=== PATIENT | male | born 1940 | race African-American/Black ===

== ENCOUNTER 2016-10-30 22:02 | Inpatient (IN) | payer MEDICARE, OTHER ==
[~2016-10-30] VITALS: Ht 228.6 cm; Wt 49.0 kg
[~2016-10-30 22:02] MED LIST: ADVAIR 500-501 EACH INH; AMLODIPINE BESY10 MG ORAL; CLARINEX5 MG ORAL; COMBIVENT RESPIM4 GM IH; DIOVAN320 MG ORAL; MUCINEX D ER 61 EACH PO; NASONEX17 GM NASAL; NEXIUM40 M2 ORAL; PREDNISONE10 M2 PO; PROMETHAZINE-C118 M1 ORAL; SPIRIVA18 MCG INH; THEOPHYLLINE A100 MG ORAL; ZITHROMAX500 MG ORAL
[2016-10-30 22:41] VITALS: BP 133/90
[2016-10-31 00:35] VITALS: BP 127/91
[2016-10-31 01:32] LABS: BASOPHILS % (AUTO) 1.6 % (0.0-2.0); EOSINOPHILS % (AUTO) 0.7 % (0.0-3.0); LYMPHOCYTES % (AUTO) 37.1 % (20.0-45.0); MEAN CORPUSCULAR HGB CONC 30.4 G/DL (32.0-36.0); MEAN CORPUSCULAR VOLUME 105 FL (80-99); MEAN PLATELET VOLUME 9.3 FL (6.5-10.1); MONOCYTES % (AUTO) 9.6 % (1.0-10.0); PLATELET COUNT 221 K/UL (150-450); RED BLOOD COUNT 4.41 M/UL (4.70-6.10); RED CELL DISTRIBUTION WIDTH 16.3 % (11.6-14.8); WHITE BLOOD COUNT 4.6 K/UL (4.8-10.8)
[2016-10-31 01:37] VITALS: BP 153/91
[2016-10-31 02:13] LABS: TROPONIN I < 0.30 ng/mL (<=0.30)
[2016-10-31 02:17] LABS: ALANINE AMINOTRANSFERASE 15 U/L (3-41); ALBUMIN/GLOBULIN RATIO 0.7 (1.0-2.7); ANION GAP 13 (5-15); ASPARTATE AMINO TRANSFERASE 16 U/L (5-40); CALCIUM 9.7 mg/dL (8.6-10.2); CARBON DIOXIDE 27 mEQ/L (20-30); CHLORIDE 101 mEQ/L (98-107); HEMOLYSIS 29; POTASSIUM 4.3 mEQ/L (3.4-4.9); SODIUM 141 mEQ/L (135-145); TOTAL PROTEIN 8.5 g/dL (6.6-8.7)
--- NOTE | 2016-10-31 02:27 | Emergency Room Report ---
History of Present Illness General Chief Complaint: Chest Pain Source: Patient Present Illness HPI Patient present with complaints of chest pain ongoing for the past 2 days Midsternal Denies any change with exertion or position Patient also has a history of COPD had a recent hospitalization for that However this time denies any significant shortness of breath patient is on home O2 and presents with his home oxygen pain is a 3/ 10 heaviness at times sharp pain midsternal without much other radiation denies any vomiting or diarrhea denies any pleurisy Allergies: Coded Allergies: No Known Allergies (Verified , 06/04/09) Patient History Past Medical History: see triage record Pertinent Family History: none Reviewed Nursing Documentation: PMH: Agreed, PSxH: Agreed Nursing Documentation-PMH Hx Hypertension: Yes Hx COPD: Yes Hx Cancer: Yes Hx Gastrointestinal Problems: Yes Hx Neurological Problems: Yes - back pain, sight problem Review of Systems All Other Systems: negative except mentioned in HPI Physical Exam Vital Signs Date Time Temp Pulse Resp B/P Pulse Ox O2 Delivery O2 Flow Rate FiO2 10/30/16 22:17 98.8 92 21 133/90 97 Room Air 2.0 Sp02 EP Interpretation: reviewed, normal General Appearance: no apparent distress Head: normocephalic, atraumatic Eyes: bilateral eye EOMI, bilateral eye PERRL ENT: hearing grossly normal, normal pharynx, TMs + canals normal, uvula midline Neck: full range of motion, supple, no meningismus, no bony tend Respiratory: no rhonchi, no respiratory distress, no retraction, no accessory muscle use, crackles, wheezing Cardiovascular #1: normal peripheral pulses, regular rate, rhythm, no edema, no gallop, no JVD, no murmur Gastrointestinal: normal bowel sounds, non tender, soft, no mass, no organomegaly, non-distended, no guarding, no hernia, no pulsatile mass, no rebound Genitourinary: no CVA tenderness Musculoskeletal: normal inspection Neurologic: oriented x3, responsive, 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 nml as tested, motor strength/ tone normal, sensory intact Psychiatric: mood/affect normal Skin: normal color, no rash, warm/dry, palpation normal Lymphatic: normal inspection, no adenopathy Medical Decision Making Diagnostic Impression: Primary Impression: ACS (acute coronary syndrome) ER Course Patient is a fairly complex patient with multiple differential to consideration including but not limited to cardiac cardiopulmonary and vascular emergencies Patient's x-ray appears to be stable Patient was given aspirin at this time remained chest pain-free and nitroglycerin was held EKG shows some nonspecific findings otherwise enzymes were negative and patient admitted for further inpatient care Labs Test 10/31/16 00:20 White Blood Count 4.6 K/UL (4.8-10.8) Red Blood Count 4.41 M/UL (4.70-6.10) Hemoglobin 14.1 G/DL (14.2-18.0) Hematocrit 46.5 % (42.0-52.0) Mean Corpuscular Volume 105 FL (80-99) Mean Corpuscular Hemoglobin 32.0 PG (27.0-31.0) Mean Corpuscular Hemoglobin Concent 30.4 G/DL (32.0-36.0) Red Cell Distribution Width 16.3 % (11.6-14.8) Platelet Count 221 K/UL (150-450) Mean Platelet Volume 9.3 FL (6.5-10.1) Neutrophils (%) (Auto) 51.0 % (45.0-75.0) Lymphocytes (%) (Auto) 37.1 % (20.0-45.0) Monocytes (%) (Auto) 9.6 % (1.0-10.0) Eosinophils (%) (Auto) 0.7 % (0.0-3.0) Basophils (%) (Auto) 1.6 % (0.0-2.0) Sodium Level 141 mEQ/L (135-145) Potassium Level 4.3 mEQ/L (3.4-4.9) Chloride Level 101 mEQ/L (98-107) Carbon Dioxide Level 27 mEQ/L (20-30) Anion Gap 13 (5-15) Blood Urea Nitrogen 21 mg/dL (7-23) Creatinine 1.0 mg/dL (0.7-1.2) Estimat Glomerular Filtration Rate mL/min (>60) Glucose Level 107 mg/dL (74-106) Calcium Level 9.7 mg/dL (8.6-10.2) Total Bilirubin 0.3 mg/dL (0.0-1.2) Aspartate Amino Transf (AST/SGOT) 16 U/L (5-40) Alanine Aminotransferase (ALT/SGPT) 15 U/L (3-41) Alkaline Phosphatase 81 U/L (40-129) Total Creatine Kinase 158 U/L (38-174) Troponin I < 0.30 ng/mL (<=0.30) Total Protein 8.5 g/dL (6.6-8.7) Albumin 3.7 g/dL (3.5-5.2) Globulin 4.8 g/dL Albumin/Globulin Ratio 0.7 (1.0-2.7) EKG Diagnostic Results Rate: normal Rhythm: NSR ST Segments: other - Nonspecific ST and T-wave changes Rhythm Strip Diag. Results EP Interpretation: yes Rate: 66 Rhythm: NSR, no PVC's, no ectopy Chest X-Ray Diagnostic Results EP Interpretation: Yes Findings: no consolidation, no effusion, no pneumothorax Number of Views: 1 Last Vital Signs Date Time Temp Pulse Resp B/P Pulse Ox O2 Delivery O2 Flow Rate FiO2 10/31/16 02:08 98.8 68 16 153/91 100 Room Air 2.0 Status: improved Disposition: ADMITTED INPATIENT Condition: Serious Referrals: LEYLA ARRIAZA (PCP) MAYO PARIKH D.O. Oct 31, 2016 02:27
[2016-10-31 02:30] LABS: CKMB 1.7 ng/mL (< 6.7)
[2016-10-31 08:05] VITALS: BP 146/89
[2016-10-31] MEDS ORDERED: Promethazine/Codeine 5ml UD ORAL PRN (11:00)
[2016-10-31 11:28] VITALS: BP 137/87
--- NOTE | 2016-10-31 11:35 | Diagnostic Imaging Report ---
Indication: Chest Pain Comparison: 09/05/16 A single view chest radiograph was obtained. Findings: A No definite infiltrate or pulmonary vascular congestion identified. The heart is enlarged. The aorta is mildly enlarged consistent with atherosclerotic vascular disease. The bones are osteopenic. Impression: No acute disease
--- NOTE | 2016-10-31 11:59 | Nephrology Progress Note ---
Assessment/Plan Problem List: (1) ACS (acute coronary syndrome) (2) Hypertension Plan H&P dictated # [id number] Subjective Constitutional: Denies: chills, diaphoresis, fever, malaise, no symptoms, other , weakness HEENT: Denies: blurred vision, double vision, ear discharge, ear pain, eye pain , mouth pain, mouth swelling, no symptoms, nose congestion, nose pain, other, tearing, throat pain, throat swelling Genitourinary: Denies: burning, discharge, flank pain, frequency, hematuria, incontinence, no symptoms, other, pain, urgency Neurologic/Psychiatric: Denies: anxiety, depressed, emotional problems, headache, no symptoms, numbness, other, paresthesia, pre-existing deficit, seizure, tingling, tremors, weakness Objective Objective Last 24 Hour Vital Signs Date Time Temp Pulse Resp B/P Pulse Ox O2 Delivery O2 Flow Rate FiO2 10/31/16 11:28 97.9 71 20 137/87 97 Nasal Cannula 2.0 10/31/16 08:05 96.8 68 20 146/89 94 Nasal Cannula 2.0 10/31/16 04:33 67 10/31/16 02:08 98.8 68 16 153/91 100 Room Air 2.0 10/31/16 01:37 98.8 68 16 153/91 100 Room Air 2.0 10/31/16 00:35 98.8 74 16 127/91 100 Room Air 2.0 10/30/16 22:41 98.8 90 21 133/90 97 Room Air 2.0 10/30/16 22:41 92 21 Room Air 2.0 10/30/16 22:17 98.8 92 21 133/90 97 Room Air 2.0 Intake and Output 10/30/16 10/31/16 18:59 06:59 Output Total 300 ml Balance -300 ml Output Urine Total 300 ml # Voids 2 Laboratory Tests 10/31/16 00:20: White Blood Count 4.6L, Red Blood Count 4.41L, Hemoglobin 14.1L, Hematocrit 46.5 , Mean Corpuscular Volume 105H, Mean Corpuscular Hemoglobin 32.0H, Mean Corpuscular Hemoglobin Concent 30.4L, Red Cell Distribution Width 16.3H, Platelet Count 221, Mean Platelet Volume 9.3, Neutrophils (%) (Auto) 51.0, Lymphocytes (%) (Auto) 37.1, Monocytes (%) (Auto) 9.6, Eosinophils (%) (Auto) 0.7, Basophils (%) (Auto) 1.6, Sodium Level 141, Potassium Level 4.3, Chloride Level 101, Carbon Dioxide Level 27, Anion Gap 13, Blood Urea Nitrogen 21, Creatinine 1.0, Estimat Glomerular Filtration Rate , Glucose Level 107H, Calcium Level 9.7, Total Bilirubin 0.3, Aspartate Amino Transf (AST/SGOT) 16, Alanine Aminotransferase (ALT/SGPT) 15, Alkaline Phosphatase 81, Total Creatine Kinase 158, Creatine Kinase MB 1.7, Creatine Kinase MB Relative Index 1.0, Troponin I < 0.30, Pro-B-Type Natriuretic Peptide 391, Total Protein 8.5, Albumin 3.7, Globulin 4.8, Albumin/Globulin Ratio 0.7L Height (Feet): 7 Height (Inches): 6.00 Weight (Pounds): 108 EENT: PERRL/EOMI, normal ENT inspection Neck: non-tender, normal alignment Cardiovascular: no JVD Respiratory/Chest: no respiratory distress Abdomen: non tender, soft Neurologic: no motor/sensory deficits, alert, oriented x 3, responsive, normal mood/affect Karen Salomon N.P. Oct 31, 2016 11:59
[2016-10-31] MEDS: PredniSONE 20mg tab ORAL SCH ×2 (13:00→22:09)
[2016-10-31] MEDS: Theophylline ER 100mg ORAL SCH (13:00)
[2016-10-31] MEDS: Norco 5mg/325mg tab ORAL PRN ×2 (13:01→17:45)
[2016-10-31 13:28] LABS: TROPONIN I < 0.30 ng/mL (<=0.30)
[2016-10-31 13:37] LABS: CKMB < 1.5 ng/mL (< 6.7)
[2016-10-31] MEDS: Irbesartan 150mg tablet ORAL SCH (13:52)
[2016-10-31 15:49] VITALS: BP 135/92
[2016-10-31] MEDS: Flonase Nasal Inhaler 16gm NASAL SCH (16:19)
[2016-10-31] MEDS: guaiFENesin 600mg tab ORAL SCH (17:41)
[2016-10-31] MEDS: Pseudoephedrine 30mg tab ORAL SCH (17:41)
[2016-10-31 20:00] VITALS: BP 132/90
[2016-10-31] MEDS: Morphine Sulfate 2mg/ml Inj IVP PRN (22:11)
[2016-10-31] MEDS: Heparin 5000 units/ml inj SUBQ SCH (22:12)
[2016-11-01] VITALS: BP 146/88
[2016-11-01] MEDS: Norco 5mg/325mg tab ORAL PRN ×4 (02:10→22:11)
--- NOTE | 2016-11-01 03:18 | HX and Phyl Repo 2 Sig ---
DATE OF ADMISSION: 10/30/2016 HISTORY OF PRESENT ILLNESS: The patient is a 75-year-old male, who presented to the emergency department yesterday, 10/30/2016 with complaints of left-sided chest pain radiating to the left arm and back. He also complains of shortness of breath and dizziness with severe headache. He then asked his brother to bring him to the emergency room because he thought he was having a heart attack. He denies any loss of consciousness. Denies any fever. Denies chills. No nausea. No vomiting. He stated that until this incident, he has been in good health after his discharge from the hospital on 09/05/2016. PAST MEDICAL HISTORY: 1. Hypertension. 2. Depression. 3. Lumbar arthropathy. 4. Degenerative joint disease. 5. COPD. MEDICATIONS: Theophylline, amlodipine, Phenergan With Codeine, Spiriva, aspirin, Nasonex, Prednisolone, Nexium, and Clarinex. ALLERGIES: He has no known allergies. SOCIAL HISTORY: He denies any alcohol use. No illicit drug use. He is a nonsmoker. FAMILY HISTORY: Noncontributory. REVIEW OF SYSTEMS: A full 12-point review of system was reviewed with the patient and positive as stated in HPI. PHYSICAL EXAMINATION: GENERAL: The patient does not appear to be in any distress at this time. VITAL SIGNS: Blood pressure is 137/87, heart rate is 71, temperature is 97.9 degrees, O2 saturation 97% on room air, and respirations 20. HEAD AND NECK: Normocephalic and atraumatic. EOMI. NECK: Supple. Trachea is midline. LUNGS: Clear bilaterally. CARDIOVASCULAR: Regular rate and rhythm. S1 and S2. No murmur. No gallop. ABDOMEN: Soft, nontender, and nondistended. No organomegaly. EXTREMITIES: No edema, no cyanosis, and no clubbing. NEUROLOGIC: The patient is alert and oriented x3. LABORATORY DATA: WBC 4.6, hemoglobin 14.1, hematocrit 36.5, and platelet count is 221,000. Chemistry, sodium of 141, potassium 4.3, chloride 101, bicarbonate is 27, BUN 21, and creatinine 1.0. Glucose is 107. RADIOLOGIC FINDING: A chest x-ray shows no acute disease present. ASSESSMENT: 1. Chest pain. 2. Rule out myocardial infarction. 3. Hypertension. 4. Chronic obstructive pulmonary disease. 5. Degenerative joint disease. PLAN: Plan is to continue home medications. Start the patient on cardiac diet. Obtain a cardiac consultation with Dr. Holguin. Monitor labs. Consider nebulizing treatment. Obtain cardiac enzymes q.8 h. x3. Monitor the patient's response to treatment. , CBCs, and BMP. Hesham Arreaga M.D. Karen Salomon DR: SOILA JOB#: [id number] CC:
[2016-11-01 04:00] VITALS: BP 150/84
[2016-11-01 08:11] LABS: BASOPHILS % (AUTO) 1.8 % (0.0-2.0); EOSINOPHILS % (AUTO) 0.1 % (0.0-3.0); LYMPHOCYTES % (AUTO) 37.8 % (20.0-45.0); MEAN CORPUSCULAR HGB CONC 32.6 G/DL (32.0-36.0); MEAN CORPUSCULAR VOLUME 95 FL (80-99); MEAN PLATELET VOLUME 10.1 FL (6.5-10.1); NEUTROPHILS % (AUTO) 53.3 % (45.0-75.0); PLATELET COUNT 205 K/UL (150-450); RED BLOOD COUNT 4.28 M/UL (4.70-6.10); RED CELL DISTRIBUTION WIDTH 14.1 % (11.6-14.8); WHITE BLOOD COUNT 4.3 K/UL (4.8-10.8)
[2016-11-01 08:22] LABS: ANION GAP 11 (5-15); CALCIUM 9.5 mg/dL (8.6-10.2); CARBON DIOXIDE 29 mEQ/L (20-30); CHLORIDE 100 mEQ/L (98-107); CREATININE 0.8 mg/dL (0.7-1.2); HEMOLYSIS 15; POTASSIUM 4.2 mEQ/L (3.4-4.9); SODIUM 140 mEQ/L (135-145)
[2016-11-01 08:42] VITALS: BP 157/95
[2016-11-01] MEDS: Pseudoephedrine 30mg tab ORAL SCH ×3 (09:00→17:45)
[2016-11-01] MEDS: Flonase Nasal Inhaler 16gm NASAL SCH (09:18)
[2016-11-01] MEDS: Irbesartan 150mg tablet ORAL SCH (09:19)
[2016-11-01] MEDS: Theophylline ER 100mg ORAL SCH (09:19)
[2016-11-01] MEDS: PredniSONE 20mg tab ORAL SCH ×2 (09:19→17:41)
[2016-11-01] MEDS: guaiFENesin 600mg tab ORAL SCH (09:19)
[2016-11-01] MEDS: Docusate 100mg cap ORAL SCH ×2 (09:20→17:41)
[2016-11-01] MEDS: Miralax 17gm pkt ORAL SCH (09:20)
[2016-11-01] MEDS: Heparin 5000 units/ml inj SUBQ SCH ×2 (09:21→22:10)
--- NOTE | 2016-11-01 11:51 | Neurology Progress Note ---
Objective Physical Exam Last Vital Signs Date Time Temp Pulse Resp B/P Pulse Ox O2 Delivery O2 Flow Rate FiO2 11/01/16 09:19 157/95 11/01/16 09:19 56 11/01/16 09:15 18 97 Room Air 21 11/01/16 08:42 97.0 2.0 Laboratory Tests Test 10/31/16 12:33 11/01/16 07:30 Total Creatine Kinase 119 U/L (38-174) Creatine Kinase MB < 1.5 ng/mL (< 6.7) Creatine Kinase MB Relative Index 1.2 Troponin I < 0.30 ng/mL (<=0.30) White Blood Count 4.3 K/UL (4.8-10.8) L Red Blood Count 4.28 M/UL (4.70-6.10) L Hemoglobin 13.3 G/DL (14.2-18.0) L Hematocrit 40.6 % (42.0-52.0) L Mean Corpuscular Volume 95 FL (80-99) # Mean Corpuscular Hemoglobin 31.0 PG (27.0-31.0) Mean Corpuscular Hemoglobin Concent 32.6 G/DL (32.0-36.0) Red Cell Distribution Width 14.1 % (11.6-14.8) Platelet Count 205 K/UL (150-450) Mean Platelet Volume 10.1 FL (6.5-10.1) Neutrophils (%) (Auto) 53.3 % (45.0-75.0) Lymphocytes (%) (Auto) 37.8 % (20.0-45.0) Monocytes (%) (Auto) 7.0 % (1.0-10.0) Eosinophils (%) (Auto) 0.1 % (0.0-3.0) Basophils (%) (Auto) 1.8 % (0.0-2.0) Sodium Level 140 mEQ/L (135-145) Potassium Level 4.2 mEQ/L (3.4-4.9) Chloride Level 100 mEQ/L (98-107) Carbon Dioxide Level 29 mEQ/L (20-30) Anion Gap 11 (5-15) Blood Urea Nitrogen 14 mg/dL (7-23) Creatinine 0.8 mg/dL (0.7-1.2) Estimat Glomerular Filtration Rate mL/min (>60) Glucose Level 110 mg/dL (74-106) H Calcium Level 9.5 mg/dL (8.6-10.2) Impression/Recommendations Problems: (1) cephalgia,muscle contraction type (2) Chronic pain syndrome (3) generalised myalgia/arthralgia (4) H/O prostate cancer (5) Abnormal gait (6) Anxiety disorder (7) Depression Status: stable Recommendations #[id number] SARANYA MENSAH Nov 01, 2016 11:51
[2016-11-01 12:55] VITALS: BP 147/94
[2016-11-01 13:07] LABS: PSA TOTAL 3.7 ng/mL (< 4.5)
[2016-11-01 13:19] LABS: CRP QUANT < 0.3 mg/dL (< 0.5)
[2016-11-01 16:00] VITALS: BP 139/82
--- NOTE | 2016-11-01 16:17 | Cardiac Electrophysiology PN ---
Subjective Subjective [id number]. HTN, CP, COPD, ECHO and stress test Objective Last 24 Hour Vital Signs Date Time Temp Pulse Resp B/P Pulse Ox O2 Delivery O2 Flow Rate FiO2 11/01/16 12:55 97.5 69 20 147/94 99 Nasal Cannula 2.0 11/01/16 12:00 54 11/01/16 09:19 157/95 11/01/16 09:19 56 157/95 11/01/16 09:15 98 18 97 Room Air 21 11/01/16 09:10 100 20 96 Room Air 21 11/01/16 08:42 97.0 56 20 157/95 100 Nasal Cannula 2.0 11/01/16 08:00 53 11/01/16 04:00 97.5 69 18 150/84 100 Nasal Cannula 2.0 11/01/16 04:00 53 11/01/16 00:00 97.9 64 20 146/88 100 Room Air 11/01/16 00:00 54 10/31/16 20:00 64 10/31/16 20:00 97.9 72 16 132/90 99 Room Air Intake and Output 10/31/16 11/01/16 18:59 06:59 Intake Total 680 ml 620 ml Output Total 850 ml 500 ml Balance -170 ml 120 ml Intake Oral 680 ml 620 ml Output Urine Total 850 ml 500 ml # Voids 3 Laboratory Tests Test 11/01/16 07:30 11/01/16 12:25 White Blood Count 4.3 K/UL (4.8-10.8) L Red Blood Count 4.28 M/UL (4.70-6.10) L Hemoglobin 13.3 G/DL (14.2-18.0) L Hematocrit 40.6 % (42.0-52.0) L Mean Corpuscular Volume 95 FL (80-99) # Mean Corpuscular Hemoglobin 31.0 PG (27.0-31.0) Mean Corpuscular Hemoglobin Concent 32.6 G/DL (32.0-36.0) Red Cell Distribution Width 14.1 % (11.6-14.8) Platelet Count 205 K/UL (150-450) Mean Platelet Volume 10.1 FL (6.5-10.1) Neutrophils (%) (Auto) 53.3 % (45.0-75.0) Lymphocytes (%) (Auto) 37.8 % (20.0-45.0) Monocytes (%) (Auto) 7.0 % (1.0-10.0) Eosinophils (%) (Auto) 0.1 % (0.0-3.0) Basophils (%) (Auto) 1.8 % (0.0-2.0) Sodium Level 140 mEQ/L (135-145) Potassium Level 4.2 mEQ/L (3.4-4.9) Chloride Level 100 mEQ/L (98-107) Carbon Dioxide Level 29 mEQ/L (20-30) Anion Gap 11 (5-15) Blood Urea Nitrogen 14 mg/dL (7-23) Creatinine 0.8 mg/dL (0.7-1.2) Estimat Glomerular Filtration Rate mL/min (>60) Glucose Level 110 mg/dL (74-106) H Calcium Level 9.5 mg/dL (8.6-10.2) Erythrocyte Sedimentation Rate 78 MM/HR (0-20) H C-Reactive Protein, Quantitative < 0.3 mg/dL (< 0.5) Total Protein (PEP) Pending Albumin (PEP) Pending Globulin (PEP) Pending Albumin/Globulin Ratio Pending [id number] Pending Llzoy-[id number] Pending Beta Globulins Pending Beta Gamma Globulin Pending PEP Abnormal Protein Bands Pending Protein Electrophoresis Interpret Pending Prostate Specific Antigen 3.7 ng/mL (< 4.5) Rheumatoid Factor Screen Pending Anti-Nuclear Antibody Screen Pending TARA OLIVERA Nov 01, 2016 16:17
[2016-11-01 20:00] VITALS: BP 142/74
--- NOTE | 2016-11-01 20:29 | Cardiology Report ---
APPROVED REPORT EKG Measurement Heart [id number] Normal sinus rhythm Right bundle branch block T wave abnormality, consider lateral ischemia Abnormal ECG
--- NOTE | 2016-11-01 20:41 | Cardiology Report ---
APPROVED REPORT EXAM: Two-dimensional and M-mode echocardiogram with Doppler and color Doppler. INDICATION Chest Pain M-Mode DIMENSIONS Left Atrium (MM)3.5 (1.6-4.0cm) Aortic Root3.6 (2.0-3.7cm) Aortic Cusp Exc.1.9 (1.5-2.0cm) Technically difficult study due to poor acoustic windows. M-mode measurements not obtainable due to cardiac structure. Normal left ventricular chamber size, systolic function and wall motion. Left ventricular ejection fraction estimated to be 55-60%. No evidence of left ventricular hypertrophy. Anterior Echo-free space, may be due to pericardial fat or effusion. All other cardiac chamber sizes are within normal limits. Focal aortic valve sclerosis with adequate cusp excursion Thickened mitral valve leaflets with normal excursion. Mitral annulus and aortic root calcification. Pulmonic valve not well visualized. Normal tricuspid valve structure. IVC not obtainable. A color flow and spectral Doppler study was performed and revealed: No aortic regurgitation. No mitral regurgitation. Left ventricular diastolic dysfunction grade 1. No tricuspid regurgitation. Tricuspid systolic velocities suggests peak right ventricular systolic pressure of 31 mmHg
--- NOTE | 2016-11-01 21:57 | Consultation ---
DATE OF CONSULTATION: 11/01/2016 NEUROLOGICAL CONSULTATION REQUESTING PHYSICIAN: Hesham Arreaga M.D. HISTORY OF PRESENT ILLNESS: The patient is a 75-year-old man seen in neurological consultation to evaluate multiple complaints including intermittent two to three times a month severe diffuse headache accompanied by dizziness, blurriness of vision, and not responding to Tylenol or Advil. The patient complains of generalized pain, arthralgia, and myalgia. His current admission followed two days of chest pain, which continues until present time. The patient informs me that pain issue dates back to 20 years ago when he was exposed to chemicals at work and through working compensation placed on disabilities. Following current admission, vital signs were normal. He was a stable, blood pressure 133/90 and temperature 98.8 degrees. EKG revealed some nonspecific findings. Laboratory work was obtained revealing mild anemia, hemoglobin 14.1 and hematocrit 46.5. Chemistry panel unremarkable with the blood sugar 107. Normal troponins, sequential. Imaging studies included chest x-ray, which revealed no acute disease, aorta mildly enlarged consistent with atherosclerotic vascular disease and heart is enlarged. The patient indicate that symptoms including old recurrent symptomatology fluctuate periodically with exacerbation forcing him to be hospitalized. 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 MEDICATIONS: The patient's treatment prior to admission included Norvasc, albuterol, Zithromax, Phenergan, Clarinex, Nexium, Suresh-Dur, Diovan, losartan, Zoloft, [place] two to three a day, which he takes almost daily for several years. The patient indicated he is under care of pain management, hospital education coordinator for his underlying COPD and frequent exacerbations. ALLERGIES: None reported. SOCIAL HISTORY: Lives at home alone with his brother, . No alcohol. No drug abuse. Nonsmoker. FAMILY HISTORY: Noncontributory. REVIEW OF SYSTEMS: A 12-point review of symptom was obtained and this included severe headache diffuse, visual abnormalities related to his glaucoma, neck pain, pain in his upper and lower extremities, and upper mid lower back, gait instability using cane, anxiety, depression, persistent dull chest pain, but no palpitations, shortness of breath on exertion, and unaware of having strokes, TIA, or seizures. PHYSICAL EXAMINATION: GENERAL: Well-developed and well-nourished man, not in acute distress, found to be asleep, but easily arousable. VITAL SIGNS: Stable. Blood pressure 157/95, heart rate of 56 and afebrile. HEENT: Head, normocephalic. No evidence of trauma. Eyes, ears and throat are clear. NECK: Neck is supple, but tender on palpation. EXTREMITIES: There is a diffuse tenderness in joints both upper and lower extremities, upper mid lower back. Straight leg raising test is negative. There is arthritic deformities in both knees. Peripheral pulses 1+ symmetric. MENTAL STATUS: The patient is alert and oriented x3. His speech is fluent. No evidence of aphasia or apraxia. Emotionally labile, tense, anxious, concerned that he might have "something dangerous in his head". CRANIAL NERVE II: Pupils both responding to light and accommodation. Extraocular movement intact. CRANIAL NERVE V: Normal corneal responses. CRANIAL NERVE VII: Left facial droop. 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 CRANIAL NERVE VIII: Normal hearing. CRANIAL NERVES IX THROUGH XII: Tongue is midline. Symmetric palate elevation. MOTOR EXAMINATION: Motor examination revealed normal muscle tone. Strength 5/5 in all extremities. No involuntary movement. No pronation drift. Deep reflexes are 1+ bilaterally symmetric with downgoing toes on both sides. SENSORY EXAM: Normal to pinprick and light touch. Gait is slow, small steps, slight limping to the right, using cane. IMPRESSION: 1. The patient is a 75-year-old man with a chronic intermittent dull headache, muscle contraction type. 2. Abnormal gait, multifactorial contributed by generalized arthralgia and myalgia. 3. Chronic pain syndrome, opiate dependent. 4. Anxiety and depression. 5. Hypertension. 6. Chronic obstructive pulmonary disease. 7. Gouty arthritis. DISCUSSION: The patient is suffering from multiple medical issues including pain syndrome, which he attributed to exposure to chemicals at work 25 years ago. Symptoms are chronic with intermittent exacerbations. 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 Presence of persistent arthralgia and myalgia may relate to collagen vascular disease or rheumatoid arthritis, this requires further diagnostic studies to establish correct diagnosis to rule out fibromyalgia per Rheumatology. The patient encouraged to avoid use of opiates on a daily basis, the patient to continue with the Zoloft. I will add gabapentin 300 mg at bedtime to be titrated up to 300 mg t.i.d. as a maintenance following two to three months. Hold nonsteroidals (the patient on prednisone). May use Fioricet p.r.n. for breakthrough headaches. Thank you for allowing me to see this interesting patient in neurological consultation. Rc Mooney M.D. DR: NICKIE JOB#: [id number] CC:
[2016-11-02] VITALS: BP 145/87
--- NOTE | 2016-11-02 00:18 | Consultation ---
DATE OF CONSULTATION: 11/01/2016 CARDIOLOGY CONSULTATION REQUESTING PHYSICIAN: Hesham Arreaga M.D. REASON FOR CONSULTATION: Management of hypertension and shortness of breath. HISTORY OF PRESENT ILLNESS: The patient is a 75-year-old gentleman with history of hypertension, depression, lumbar radiculopathy, COPD and degenerative joint disease, presented to the emergency room complaining of shortness of breath and dizziness. The patient also said he had some left-sided chest pain with radiation to left arm and neck. The patient asked his brother to bring him to the emergency room, as he felt that he may be having a heart attack. The patient was admitted and a Cardiology consultation was obtained for further evaluation and management. PAST MEDICAL HISTORY: 1. Hypertension. 2. COPD. 3. Arthritis. 4. . 5. Depression. MEDICATIONS: Amlodipine, theophylline, Nasonex, Spiriva, aspirin, and Nexium. ALLERGIES: He has no known drug allergies. SOCIAL HISTORY: He does not smoke or drink alcohol or use any illicit drugs. FAMILY HISTORY: Noncontributory. REVIEW OF SYSTEMS: Review of systems was thoroughly performed and was negative other what was mentioned in history of present illness. PHYSICAL EXAMINATION: VITAL SIGNS: Blood pressure is 157/95, pulse is 56, respirations 18, and he is afebrile. HEAD AND NECK: No JVD. LUNGS: Clear. CARDIOVASCULAR: Regular S1 and S2 with no gallop or murmur. ABDOMEN: Soft. EXTREMITIES: No pitting edema. NEUROLOGIC: He is alert and oriented x3. LABORATORY AND DIAGNOSTIC DATA: Sodium 141, potassium 4.3, BUN of 11, creatinine of 0.8 and glucose of 110. Troponins negative x2. CK and CK-MBs are negative. ASSESSMENT AND PLAN: 1. Atypical chest pain. The patient already ruled out for myocardial infarction. We will get an echocardiogram to evaluate for ejection fraction and wall motion abnormality. Chest x-ray, which showed no acute disease. If all negative, we will proceed with nuclear stress for further evaluation and management. 2. Hypertension. The patient is on 300 mg daily and Norvasc 10 mg daily. I will add p.r.n. clonidine to his medical regimen and would avoid beta-sidra in view of his chronic obstructive pulmonary disease. 3. Chronic pain syndrome with generalized myalgia and arthralgia. 4. Depression and anxiety. 5. History of prostate cancer. Thank you very much, Dr. Arreaga, for allowing me to participate in the care of this patient. Please do not hesitate to contact me if there are any questions regarding my evaluation. Aron Holguin M.D. DR: DENA JOB#: [id number] CC:
[2016-11-02] MEDS: Morphine Sulfate 2mg/ml Inj IVP PRN (02:26)
[2016-11-02 04:00] VITALS: BP 158/90
[2016-11-02 08:00] VITALS: BP 152/92
[2016-11-02 08:31] LABS: TROPONIN I < 0.30 ng/mL (<=0.30)
--- NOTE | 2016-11-02 08:31 | Nephrology Progress Note ---
Assessment/Plan Problem List: (1) ACS (acute coronary syndrome) (2) Chronic pain syndrome (3) H/O prostate cancer (4) generalised myalgia/arthralgia (5) Anemia of chronic disease (6) Hypertension Plan cardio following. stress test scheduled for am. Subjective Subjective late entry for 11/01. no more chest pain . Objective Objective Last 24 Hour Vital Signs Date Time Temp Pulse Resp B/P Pulse Ox O2 Delivery O2 Flow Rate FiO2 11/02/16 07:00 99 Nasal Cannula 2.0 28 11/02/16 07:00 Nasal Cannula 2.0 28 11/02/16 04:00 47 11/02/16 04:00 97.5 66 20 158/90 100 Nasal Cannula 2.0 11/02/16 00:00 65 11/02/16 00:00 97.6 74 20 145/87 100 Nasal Cannula 2.0 11/01/16 20:16 Nasal Cannula 2.0 28 11/01/16 20:15 98 Nasal Cannula 2.0 28 11/01/16 20:00 64 11/01/16 20:00 97.6 76 21 142/74 98 Nasal Cannula 2.0 11/01/16 16:35 Nasal Cannula 2.0 28 11/01/16 16:35 99 Nasal Cannula 2.0 28 11/01/16 16:00 97.4 72 22 139/82 100 Nasal Cannula 2.0 11/01/16 16:00 78 11/01/16 12:55 97.5 69 20 147/94 99 Nasal Cannula 2.0 11/01/16 12:00 54 11/01/16 09:19 157/95 11/01/16 09:19 56 157/95 11/01/16 09:15 98 18 97 Room Air 21 11/01/16 09:10 100 20 96 Room Air 21 11/01/16 08:42 97.0 56 20 157/95 100 Nasal Cannula 2.0 Intake and Output 11/01/16 11/02/16 19:00 07:00 Intake Total 480 ml 300 ml Output Total 900 ml 1500 ml Balance -420 ml -1200 ml Intake Oral 480 ml 300 ml Output Urine Total 900 ml 1500 ml Laboratory Tests 11/01/16 12:25: Erythrocyte Sedimentation Rate 78H, C-Reactive Protein, Quantitative < 0.3, Total Protein (PEP) [Pending], Albumin (PEP) [Pending], Globulin (PEP) [Pending] , Albumin/Globulin Ratio [Pending], [id number]-2-[id number] [Pending], Alpha-2- Globulins [Pending], Beta Globulins [Pending], Beta Gamma Globulin [Pending], PEP Abnormal Protein Bands [Pending], Protein Electrophoresis Interpret [Pending ], Prostate Specific Antigen 3.7, Rheumatoid Factor Screen [Pending], Anti- Nuclear Antibody Screen [Pending] 11/02/16 07:30: Sodium Level [Pending], Potassium Level [Pending], Chloride Level [Pending], Carbon Dioxide Level [Pending], Blood Urea Nitrogen [Pending], Creatinine [ Pending], Estimat Glomerular Filtration Rate [Pending], Glucose Level [Pending] , Calcium Level [Pending], Troponin I [Pending], Pro-B-Type Natriuretic Peptide [Pending] Height (Feet): 7 Height (Inches): 6.00 Weight (Pounds): 108 General Appearance: no apparent distress Cardiovascular: normal rate, regular rhythm Respiratory/Chest: lungs clear Abdomen: non tender, soft LEYLA ARRIAZA Nov 02, 2016 08:30
[2016-11-02 08:53] LABS: ANION GAP 11 (5-15); CALCIUM 9.1 mg/dL (8.6-10.2); CARBON DIOXIDE 30 mEQ/L (20-30); CHLORIDE 103 mEQ/L (98-107); CREATININE 0.8 mg/dL (0.7-1.2); HEMOLYSIS 2; POTASSIUM 4.6 mEQ/L (3.4-4.9); SODIUM 144 mEQ/L (135-145)
--- NOTE | 2016-11-02 09:20 | Cardiac Electrophysiology PN ---
Assessment/Plan Assessment/Plan 1. Atypical chest pain. Ruled out for myocardial infarction. Echocardiogram EF 55-60%. Nuclear stress today pending. 2. Hypertension. The patient is on Avapro 300 mg daily and Norvasc 10 mg daily and p.r.n. clonidine. Avoid beta-sidra in view of his chronic obstructive pulmonary disease. 3. Chronic pain syndrome with generalized myalgia and arthralgia. 4. Depression and anxiety. 5. History of prostate cancer. NOVA RN Subjective Subjective No chest pain or SOB. No arrhythmias overnight. Objective Last 24 Hour Vital Signs Date Time Temp Pulse Resp B/P Pulse Ox O2 Delivery O2 Flow Rate FiO2 11/02/16 09:03 60 18 99 Room Air 21 11/02/16 09:01 57 18 99 Room Air 21 11/02/16 07:00 99 Nasal Cannula 2.0 28 11/02/16 07:00 Nasal Cannula 2.0 28 11/02/16 04:00 47 11/02/16 04:00 97.5 66 20 158/90 100 Nasal Cannula 2.0 11/02/16 00:00 65 11/02/16 00:00 97.6 74 20 145/87 100 Nasal Cannula 2.0 11/01/16 20:16 Nasal Cannula 2.0 28 11/01/16 20:15 98 Nasal Cannula 2.0 28 11/01/16 20:00 64 11/01/16 20:00 97.6 76 21 142/74 98 Nasal Cannula 2.0 11/01/16 16:35 Nasal Cannula 2.0 28 11/01/16 16:35 99 Nasal Cannula 2.0 28 11/01/16 16:00 97.4 72 22 139/82 100 Nasal Cannula 2.0 11/01/16 16:00 78 11/01/16 12:55 97.5 69 20 147/94 99 Nasal Cannula 2.0 11/01/16 12:00 54 11/01/16 09:19 157/95 11/01/16 09:19 56 157/95 Intake and Output 11/01/16 11/02/16 19:00 07:00 Intake Total 480 ml 300 ml Output Total 900 ml 1500 ml Balance -420 ml -1200 ml Intake Oral 480 ml 300 ml Output Urine Total 900 ml 1500 ml Laboratory Tests Test 11/01/16 12:25 11/02/16 07:30 Erythrocyte Sedimentation Rate 78 MM/HR (0-20) H C-Reactive Protein, Quantitative < 0.3 mg/dL (< 0.5) Total Protein (PEP) Pending Albumin (PEP) Pending Globulin (PEP) Pending Albumin/Globulin Ratio Pending [id number]-4-[id number] Pending Zugkx-[id number] Pending Beta Globulins Pending Beta Gamma Globulin Pending PEP Abnormal Protein Bands Pending Protein Electrophoresis Interpret Pending Prostate Specific Antigen 3.7 ng/mL (< 4.5) Rheumatoid Factor Screen Pending Anti-Nuclear Antibody Screen Pending Sodium Level 144 mEQ/L (135-145) Potassium Level 4.6 mEQ/L (3.4-4.9) Chloride Level 103 mEQ/L (98-107) Carbon Dioxide Level 30 mEQ/L (20-30) Anion Gap 11 (5-15) Blood Urea Nitrogen 17 mg/dL (7-23) Creatinine 0.8 mg/dL (0.7-1.2) Estimat Glomerular Filtration Rate mL/min (>60) Glucose Level 93 mg/dL (74-106) Calcium Level 9.1 mg/dL (8.6-10.2) Troponin I < 0.30 ng/mL (<=0.30) Pro-B-Type Natriuretic Peptide 158 pg/mL (0-450) Objective HEAD AND NECK: No JVD. LUNGS: Clear. CARDIOVASCULAR: Regular S1 and S2 with no gallop or murmur. ABDOMEN: Soft. EXTREMITIES: No pitting edema. TARA OLIVERA Nov 02, 2016 09:20
[2016-11-02 09:45] LABS: RHEUMATOID FACTOR SCREEN <10.0 IU/mL (0.0-13.9)
[2016-11-02] MEDS: Pseudoephedrine 30mg tab ORAL SCH ×2 (09:55→17:51)
[2016-11-02] MEDS: Irbesartan 150mg tablet ORAL SCH (09:55)
[2016-11-02] MEDS: Miralax 17gm pkt ORAL SCH (09:55)
[2016-11-02] MEDS: guaiFENesin 600mg tab ORAL SCH (09:56)
[2016-11-02] MEDS: PredniSONE 20mg tab ORAL SCH ×2 (09:56→17:46)
[2016-11-02] MEDS: Docusate 100mg cap ORAL SCH ×2 (09:56→17:48)
[2016-11-02] MEDS: Heparin 5000 units/ml inj SUBQ SCH ×2 (09:58→22:28)
[2016-11-02] MEDS: Flonase Nasal Inhaler 16gm NASAL SCH (10:00)
[2016-11-02 10:18] LABS: A/G RATIO 0.8 (0.7-1.7); ABNORMAL PROTEIN BAND 1 2.6 g/dL (Not Observed); ALBUMIN 3.2 g/dL (2.9-4.4); ALPHA-1 GLOBULIN 0.2 g/dL (0.0-0.4); ALPHA-2 GLOBULIN 0.6 g/dL (0.4-1.0); BETA GLOBULIN 3.2 g/dL (0.7-1.3); GAMMA GLOBULIN 0.1 g/dL (0.4-1.8); GLOBULIN, TOTAL 4.1 g/dL (2.2-3.9); TOTAL PROTEIN 7.3 g/dL (6.0-8.5)
[2016-11-02] MEDS: Theophylline ER 100mg ORAL SCH (10:27)
[2016-11-02 12:00] VITALS: BP 139/81
[2016-11-02] MEDS: Norco 5mg/325mg tab ORAL PRN ×3 (12:30→22:27)
[2016-11-02 16:00] VITALS: BP 124/76
--- NOTE | 2016-11-02 17:45 | Nephrology Progress Note ---
Assessment/Plan Problem List: (1) ACS (acute coronary syndrome) (2) Hypertension (3) Numbness and tingling of both legs (4) H/O prostate cancer (5) Degenerative joint disease Plan Cardio f/u S/P stress test - will follow up with cardio recs Monitor vitals Monitor counts Neurology f/u AM labs Subjective Constitutional: Denies: chills, diaphoresis, fever, malaise, no symptoms, other , weakness HEENT: Denies: blurred vision, double vision, ear discharge, ear pain, eye pain , mouth pain, mouth swelling, no symptoms, nose congestion, nose pain, other, tearing, throat pain, throat swelling Genitourinary: Denies: burning, discharge, flank pain, frequency, hematuria, incontinence, no symptoms, other, pain, urgency Neurologic/Psychiatric: Reports: numbness - bilateral foot numbess Objective Objective Last 24 Hour Vital Signs Date Time Temp Pulse Resp B/P Pulse Ox O2 Delivery O2 Flow Rate FiO2 11/02/16 16:00 97.6 63 21 124/76 98 Nasal Cannula 3.0 11/02/16 12:00 97.9 59 18 139/81 100 Nasal Cannula 2.0 11/02/16 12:00 57 11/02/16 09:56 60 158/90 11/02/16 09:55 158/90 11/02/16 09:03 60 18 99 Room Air 21 11/02/16 09:01 57 18 99 Room Air 21 11/02/16 08:00 97.7 59 18 152/92 97 Nasal Cannula 2.0 11/02/16 08:00 61 11/02/16 07:00 99 Nasal Cannula 2.0 28 11/02/16 07:00 Nasal Cannula 2.0 28 11/02/16 04:00 47 11/02/16 04:00 97.5 66 20 158/90 100 Nasal Cannula 2.0 11/02/16 00:00 65 11/02/16 00:00 97.6 74 20 145/87 100 Nasal Cannula 2.0 11/01/16 20:16 Nasal Cannula 2.0 28 11/01/16 20:15 98 Nasal Cannula 2.0 28 11/01/16 20:00 64 11/01/16 20:00 97.6 76 21 142/74 98 Nasal Cannula 2.0 Intake and Output 11/01/16 11/02/16 19:00 07:00 Intake Total 480 ml 300 ml Output Total 900 ml 1500 ml Balance -420 ml -1200 ml Intake Oral 480 ml 300 ml Output Urine Total 900 ml 1500 ml Laboratory Tests 11/02/16 07:30: Sodium Level 144, Potassium Level 4.6, Chloride Level 103, Carbon Dioxide Level 30, Anion Gap 11, Blood Urea Nitrogen 17, Creatinine 0.8, Estimat Glomerular Filtration Rate , Glucose Level 93, Calcium Level 9.1, Troponin I < 0.30, Pro-B- Type Natriuretic Peptide 158 Height (Feet): 7 Height (Inches): 6.00 Weight (Pounds): 108 General Appearance: no apparent distress, alert EENT: normal ENT inspection, TMs normal Neck: normal alignment, supple Cardiovascular: normal rate, regular rhythm, no JVD Respiratory/Chest: normal breath sounds, no respiratory distress Abdomen: soft, no organomegaly Extremities: normal range of motion, non-tender, normal inspection, no calf tenderness Neurologic: alert, oriented x 3, responsive, normal mood/affect Karen Salomon N.P. Nov 02, 2016 17:45
[2016-11-02 20:00] VITALS: BP 136/77
[2016-11-03] VITALS: BP 145/95
[2016-11-03 04:00] VITALS: BP 154/94
[2016-11-03] MEDS: Norco 5mg/325mg tab ORAL PRN (04:22)
[2016-11-03 07:45] VITALS: BP 129/71
--- NOTE | 2016-11-03 08:29 | Diagnostic Imaging Report ---
Indications: 75-year-old male inpatient presents with chest pain, hypertension. Technique: The examination was supervised by Dr. Collins. Baseline electrocardiogram was recorded. Dobutamine was administered intravenously per standard protocol for a duration of minutes 50 seconds, seen target stress level. Continuous electrocardiography, heart rate, blood pressure monitoring performed. Immediate SPECT imaging of the left ventricular myocardium was performed in multiple planes with the patient in supine position, following intravenous administration of 33 mCi 99 M technetium-sestaMIBI. Cinegraphic images were generated for wall motion analysis. Left ventricular ejection fraction was calculated. Similar imaging was performed at rest immediately prior with intravenous administration of 0.4 mCi 99 M technetium-sestaMIBI. Findings: Comparison: None. Both stress and rest images demonstrate focally decreased perfusion in the apex, fixed, left ventricular myocardial perfusion to be otherwise intact. No areas of abnormally decreased or absent perfusion are demonstrated. Cinegraphic images cannot be adequately assessed due to inadequate reconstruction. Ejection fraction is estimated at 71%. Baseline electrocardiogram demonstrates right bundle-branch block. The patient developed neck tightness as well as sinus tachycardia with frequent premature atrial contractions during exercise stress. Supervising motion picture camera operator's conclusions are that clinical response to exercise stress is ischemic while electrocardiographic response is nonischemic. IMPRESSION: No evidence of chemically induced left ventricular myocardial ischemia or definite prior infarct Probable normal apical thinning. This partially correlates with supervising motion picture camera operator's conclusions.
[2016-11-03 08:42] LABS: MEAN CORPUSCULAR HGB CONC 33.2 G/DL (32.0-36.0); MEAN CORPUSCULAR VOLUME 97 FL (80-99); MEAN PLATELET VOLUME 10.7 FL (6.5-10.1); PLATELET COUNT 183 K/UL (150-450); RED BLOOD COUNT 3.84 M/UL (4.70-6.10); RED CELL DISTRIBUTION WIDTH 14.2 % (11.6-14.8)
[2016-11-03 08:51] LABS: PSA TOTAL 3.3 ng/mL (< 4.5)
[2016-11-03] MEDS: Theophylline ER 100mg ORAL SCH (08:52)
[2016-11-03] MEDS: Pseudoephedrine 30mg tab ORAL SCH (08:53)
[2016-11-03] MEDS: guaiFENesin 600mg tab ORAL SCH (08:53)
[2016-11-03] MEDS: Irbesartan 150mg tablet ORAL SCH (08:53)
[2016-11-03] MEDS: PredniSONE 20mg tab ORAL SCH (08:54)
[2016-11-03] MEDS: Docusate 100mg cap ORAL SCH (08:54)
[2016-11-03] MEDS: Miralax 17gm pkt ORAL SCH (08:54)
[2016-11-03] MEDS: Flonase Nasal Inhaler 16gm NASAL SCH (08:55)
[2016-11-03] MEDS: Heparin 5000 units/ml inj SUBQ SCH (08:56)
[2016-11-03 09:02] LABS: ANION GAP 13 (5-15); CALCIUM 8.9 mg/dL (8.6-10.2); CARBON DIOXIDE 27 mEQ/L (20-30); CHLORIDE 99 mEQ/L (98-107); CREATININE 0.7 mg/dL (0.7-1.2); HEMOLYSIS 6; POTASSIUM 3.9 mEQ/L (3.4-4.9); SODIUM 139 mEQ/L (135-145)
[2016-11-03 11:45] VITALS: BP 123/78
--- NOTE | 2016-11-03 12:43 | Cardiac Electrophysiology PN ---
Assessment/Plan Status Narrative No evidence of chemically induced left ventricular myocardial ischemia or definite prior infarct Assessment/Plan 1. Atypical chest pain. Ruled out for myocardial infarction. Echocardiogram EF 55-60%. Nuclear stress no ischemia. OK to DC 2. Hypertension. Continue Avapro 300 mg daily and Norvasc 10 mg daily and p.r.n. clonidine. Avoid beta-sidra in view of his chronic obstructive pulmonary disease. 3. Chronic pain syndrome with generalized myalgia and arthralgia. 4. Depression and anxiety. 5. History of prostate cancer. NOVA RN and Dr Arreaga Subjective Subjective No chest pain or SOB. No arrhythmias overnight.Had stress test yesterday. Objective Last 24 Hour Vital Signs Date Time Temp Pulse Resp B/P Pulse Ox O2 Delivery O2 Flow Rate FiO2 11/03/16 11:45 97.0 54 18 123/78 98 Nasal Cannula 2.0 11/03/16 09:43 71 19 100 Room Air 21 11/03/16 09:43 Nasal Cannula 2.0 28 11/03/16 09:43 100 Nasal Cannula 2.0 28 11/03/16 09:43 71 19 100 Room Air 21 11/03/16 08:54 71 129/71 11/03/16 08:53 129/71 11/03/16 08:00 68 11/03/16 07:45 97.9 71 18 129/71 100 Nasal Cannula 2.0 11/03/16 04:00 48 11/03/16 04:00 97.0 58 18 154/94 100 Nasal Cannula 2.0 11/03/16 00:00 97.2 59 20 145/95 100 Nasal Cannula 2.0 11/03/16 00:00 53 11/02/16 20:00 58 11/02/16 20:00 97.7 58 20 136/77 100 Nasal Cannula 3.0 11/02/16 19:00 Nasal Cannula 2.0 28 11/02/16 19:00 100 Nasal Cannula 2.0 28 11/02/16 16:00 64 11/02/16 16:00 97.6 63 21 124/76 98 Nasal Cannula 3.0 Intake and Output 11/02/16 11/03/16 19:00 07:00 Intake Total 380 ml Output Total 1800 ml Balance -1420 ml Intake Oral 380 ml Output Urine Total 1800 ml Laboratory Tests Test 1/14/17 06:50 White Blood Count 4.0 K/UL (4.8-10.8) L Red Blood Count 3.84 M/UL (4.70-6.10) L Hemoglobin 12.3 G/DL (14.2-18.0) L Hematocrit 37.0 % (42.0-52.0) L Mean Corpuscular Volume 97 FL (80-99) Mean Corpuscular Hemoglobin 32.0 PG (27.0-31.0) H Mean Corpuscular Hemoglobin Concent 33.2 G/DL (32.0-36.0) Red Cell Distribution Width 14.2 % (11.6-14.8) Platelet Count 183 K/UL (150-450) Mean Platelet Volume 10.7 FL (6.5-10.1) H Neutrophils (%) (Auto) % (45.0-75.0) Lymphocytes (%) (Auto) % (20.0-45.0) Monocytes (%) (Auto) % (1.0-10.0) Eosinophils (%) (Auto) % (0.0-3.0) Basophils (%) (Auto) % (0.0-2.0) Neutrophils % (Manual) Pending Lymphocytes % (Manual) Pending Platelet Estimate Pending Platelet Morphology Pending Sodium Level 139 mEQ/L (135-145) Potassium Level 3.9 mEQ/L (3.4-4.9) Chloride Level 99 mEQ/L (98-107) Carbon Dioxide Level 27 mEQ/L (20-30) Anion Gap 13 (5-15) Blood Urea Nitrogen 15 mg/dL (7-23) Creatinine 0.7 mg/dL (0.7-1.2) Estimat Glomerular Filtration Rate mL/min (>60) Glucose Level 87 mg/dL (74-106) Calcium Level 8.9 mg/dL (8.6-10.2) Prostate Specific Antigen 3.3 ng/mL (< 4.5) Objective HEAD AND NECK: No JVD. LUNGS: Clear. CARDIOVASCULAR: Regular S1 and S2 with no gallop or murmur. ABDOMEN: Soft. EXTREMITIES: No pitting edema. TARA OLIVERA Nov 03, 2016 12:43
--- NOTE | 2016-11-03 12:50 | Nephrology Progress Note ---
Assessment/Plan Problem List: (1) ACS (acute coronary syndrome) (2) Hypertension (3) Numbness and tingling of both legs (4) H/O prostate cancer (5) Degenerative joint disease Plan Cleared per cardio Neuro f/u Monitor vitals Monitor counts OK to be discharged home if cleared by neuro Continue home meds Subjective Constitutional: Denies: chills, diaphoresis, fever, malaise, no symptoms, other , weakness HEENT: Denies: blurred vision, double vision, ear discharge, ear pain, eye pain , mouth pain, mouth swelling, no symptoms, nose congestion, nose pain, other, tearing, throat pain, throat swelling Genitourinary: Denies: burning, discharge, flank pain, frequency, hematuria, incontinence, no symptoms, other, pain, urgency Neurologic/Psychiatric: Denies: anxiety, depressed, emotional problems, headache, no symptoms, numbness, other, paresthesia, pre-existing deficit, seizure, tingling, tremors, weakness Subjective In bed, denies any pain at this time Objective Objective Last 24 Hour Vital Signs Date Time Temp Pulse Resp B/P Pulse Ox O2 Delivery O2 Flow Rate FiO2 11/03/16 11:45 97.0 54 18 123/78 98 Nasal Cannula 2.0 11/03/16 09:43 71 19 100 Room Air 21 11/03/16 09:43 Nasal Cannula 2.0 28 11/03/16 09:43 100 Nasal Cannula 2.0 28 11/03/16 09:43 71 19 100 Room Air 21 11/03/16 08:54 71 129/71 11/03/16 08:53 129/71 11/03/16 08:00 68 11/03/16 07:45 97.9 71 18 129/71 100 Nasal Cannula 2.0 11/03/16 04:00 48 11/03/16 04:00 97.0 58 18 154/94 100 Nasal Cannula 2.0 11/03/16 00:00 97.2 59 20 145/95 100 Nasal Cannula 2.0 11/03/16 00:00 53 11/02/16 20:00 58 11/02/16 20:00 97.7 58 20 136/77 100 Nasal Cannula 3.0 11/02/16 19:00 Nasal Cannula 2.0 28 11/02/16 19:00 100 Nasal Cannula 2.0 28 11/02/16 16:00 64 11/02/16 16:00 97.6 63 21 124/76 98 Nasal Cannula 3.0 Intake and Output 11/02/16 11/03/16 19:00 07:00 Intake Total 380 ml Output Total 1800 ml Balance -1420 ml Intake Oral 380 ml Output Urine Total 1800 ml Laboratory Tests 11/03/16 06:50: White Blood Count 4.0L, Red Blood Count 3.84L, Hemoglobin 12.3L, Hematocrit 37.0L, Mean Corpuscular Volume 97, Mean Corpuscular Hemoglobin 32.0H, Mean Corpuscular Hemoglobin Concent 33.2, Red Cell Distribution Width 14.2, Platelet Count 183, Mean Platelet Volume 10.7H, Neutrophils (%) (Auto) , Lymphocytes (%) (Auto) , Monocytes (%) (Auto) , Eosinophils (%) (Auto) , Basophils (%) (Auto) , Neutrophils % (Manual) [Pending], Lymphocytes % (Manual) [Pending], Platelet Estimate [Pending], Platelet Morphology [Pending], Sodium Level 139, Potassium Level 3.9, Chloride Level 99, Carbon Dioxide Level 27, Anion Gap 13, Blood Urea Nitrogen 15, Creatinine 0.7, Estimat Glomerular Filtration Rate , Glucose Level 87, Calcium Level 8.9, Prostate Specific Antigen 3.3 Height (Feet): 7 Height (Inches): 6.00 Weight (Pounds): 108 General Appearance: no apparent distress, alert EENT: normal ENT inspection Neck: non-tender, normal alignment, supple Cardiovascular: normal rate, regular rhythm, no JVD Respiratory/Chest: normal breath sounds, no respiratory distress Abdomen: non tender, no organomegaly Extremities: normal range of motion, non-tender, normal inspection Neurologic: alert, oriented x 3, responsive, normal mood/affect Karen Salomon N.P. Nov 03, 2016 12:50
[2016-11-03 14:06] LABS: BAND NEUTROPHILS % (MANUAL) 0 % (0-8); BASOPHILS % (MANUAL) 2 % (0-2); EOSINOPHILS % (MANUAL) 2 % (0-3); LYMPHOCYTES % (MANUAL) 53 % (20-45); NEUTROPHILS % (MANUAL) 35 % (45-75); PLATELET ESTIMATE DECREASED; PLATELET MORPHOLOGY NORMAL; TOTAL CELLS COUNTED 100
[2016-11-03] MEDS ORDERED: DOBUTamine 250mg/250ml Premix IV ONE (14:38)
--- NOTE | 2016-11-04 19:52 | Cardiology Report ---
APPROVED REPORT EKG Measurement Heart [id number] Sinus bradycardia Left axis deviation Nonspecific intraventricular conduction delay Nonspecific T wave abnormality Abnormal ECG
--- NOTE | 2016-11-05 10:28 | Discharge Summary ---
Discharge Summary Hospital Course Date of Admission Oct 30, 2016 at 23:53 Date of Discharge Nov 03, 2016 at 14:39 Admitting Diagnosis chest pain HPI Milton Veras is a 75 year old male who was admitted on Oct 30, 2016 at 23:53 for Chest Pain Hospital Course dc summary dictated #[id number] Discharge Medications Continued Medications: Amlodipine Besylate* (Amlodipine Besylate*) 10 Mg Tablet 10 MG ORAL DAILY, TAB Codeine/Promethazine Hcl* (Promethazine-Codeine Syrup*) 118 Ml Syrup 10 ML ORAL QID PRN for For Cough, ML 0 Refills Desloratadine (Clarinex) 5 Mg Tablet 5 MG ORAL DAILY, #30 TAB 0 Refills Esomeprazole Magnesium (Nexium) 40 Mg Suspdr.pkt 40 MG ORAL DAILY, PKT Fluticasone/Salmeterol (Advair 500-50 Diskus) 1 Each Blst.w.dev 1 PUFF INH DAILY, EA Guaifenesin/Pseudoephedrne Hcl (Mucinex D Er 600-60 Mg Tablet) 1 Each Tab.er.12h 1 EACH PO DAILY, TAB Ipratropium/Albuterol Sulfate (Combivent Respimat Inhal [place]) 4 Gm Mist.inhal 18 GM IH THREE TIMES A DAY, GM Mometasone Furoate (Nasonex) 17 Gm [place].pump 1 SPRAYS NASAL DAILY, GM 0 Refills Prednisone (Prednisone) 10 Mg Tab.ds.pk 10 MG PO BID, PACK Theophylline (Theodur*) 100 Mg Tab.er.12h 200 MG ORAL TWICE A DAY, #30 TAB 0 Refills Tiotropium [place]* (Spiriva*) 18 Mcg Cap.w.dev 1 PUFF INH DAILY, EA Valsartan (Diovan) 320 Mg Tablet 320 MG ORAL DAILY, TAB Discharge Discharge Disposition Patient was discharged to Home (01) Discharge Diagnoses: Discharge Instructions Discharge Instructions Special Instructions I have been assigned to complete a D/C Summary on this account. I was not involved in the patient management Erin Agarwal NP ([place]) Nov 05, 2016 10:28
--- NOTE | 2016-11-06 02:08 | Discharge Summary 2 SIG ---
DATE OF ADMISSION: 10/30/2016 DATE OF DISCHARGE: 11/03/2016 DISPOSITION: The patient was discharged home. REASON FOR ADMISSION: 75 years old male presented with complaint of chest pain for two days. He admitted to sharp midsternal pain without radiation, rated as 3/10 on a scale 1 to 10. He denied any change in pain with exertion or position. The patient has a history of COPD and had recent hospitalization for COPD exacerbation. Upon admission, the patient denied any significant shortness of breath. The patient has oxygen at home, which he using intermittently. He denied nausea, vomiting, or diarrhea. Denied any recent infection. No fevers. No chills. ADMITTING DIAGNOSES: 1. Chest pain, rule out acute coronary syndrome. 2. Chronic obstructive pulmonary disease. 3. Chronic pain syndrome with generalized myalgia and arthralgia. 4. Depression and anxiety. 5. History of prostate cancer. 6. Hypertension. 7. Chronic intermittent headache, muscle contraction type. 8. Abnormal gait. 9. Gouty arthritis. HOSPITAL COURSE: The patient was admitted to telemetry floor. Cardiology and Neurology consults were requested. Chest x-ray revealed no acute cardiopulmonary disease. Serial troponin were negative. ECG no ST changes, patient was ruled out for acute coronary syndrome, Echocardiogram revealed preserved ejection fraction of 55% to 60%. No evidence of left ventricular hypertrophy, right ventricular systolic pressure of 31, all ventricles within normal limits. Subsequently bottom hoop driver ordered nuclear stress test, which revealed no evidence of chemically induced left ventricular myocardial ischemia. No definite prior infarct. Supervisor [employer]intering [employer] concluded that chest pain was atypical. Blood pressure was managed with ARB and calcium channel blockers as well as the clonidine as needed. Supervisor [employer] recommended avoid beta-blockers due to the history of COPD. Pulmonary status was stable no evidence of acute exacerbation of COPD. Oxygen and pulmonary toilet provided as needed. As mentioned above, chest x- ray was negative. The patient has oxygen at home that he uses as needed. Neurology consult was requested. 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 He concluded that the presence of persistent arthralgia and myalgia may related to collagen vascular disease versus rheumatoid arthritis. Patient will require further diagnostic studies to establish correct diagnosis that could be done on outpatient basis. He also recommend as outpatient to see dental hygiene administrative assistant to rule out fibromyalgia. Neurologist recommended to limit opiates . Fioricet as needed p.r.n. for breakthrough headache. Neurontin was added to existing regimen and should be up titrated and tried for 2 to 3 months. The patient was stable for discharge. DISCHARGE DIAGNOSES: 1. Atypical chest pain. 2. Hypertension. 3. Chronic obstructive pulmonary disease, no evidence of exacerbation. 4. Chronic pain syndrome with generalized myalgia and arthralgia, opiate dependent. 5. Depression and anxiety. 6. History of prostate cancer. 7. Chronic intermittent headaches, muscle contraction type. 8. Abnormal gait, multifactorial, contributing by generalized arthralgia and myalgia. 9. Gouty arthritis. DISCHARGE MEDICATIONS: See medication reconciliation list. DISCHARGE INSTRUCTIONS: The patient to follow up with the primary medical doctor and dental hygiene administrative assistant. The patient was discharged home. Hesham Arreaga M.D. I have been assigned to dictate discharge summary on this account and I was not involved in the patient's management. Erin Toddcira NMilton DR: Yesika JOB#: [id number] CC: SAMEERA
--- NOTE | 2016-11-10 17:25 | Diagnostic Imaging Report ---
APPROVED REPORT CPT Code: 06256 Present Symptoms Shortness of breath BILATERAL: Imaging reveals a patent deep venous system bilaterally. There is no evidence of thrombus within the femoral, popliteal or tibial segments. The greater saphenous veins are also within normal limits. Doppler indicates normal spontaneous flow within these segments.
== END 2016-11-03 14:39 | disposition home or self-care (01) | DRG 313 ==
LOC: EMR 23:00 → 2E 23:53 → EDBEDREQ 23:59 → EMR 10-31 02:08
DX: R07.89 Other chest pain (principal); J44.9 Chronic obstructive pulmonary disease, unspecified; F11.20 Opioid dependence, uncomplicated; M06.9 Rheumatoid arthritis, unspecified; I10 Essential (primary) hypertension; M19.90 Unspecified osteoarthritis, unspecified site; G89.4 Chronic pain syndrome; F41.8 Other specified anxiety disorders; Z85.46 Personal history of malignant neoplasm of prostate; R26.9 Unspecified abnormalities of gait and mobility; M79.1 Myalgia; G51.0 Bell's palsy; M35.9 Systemic involvement of connective tissue, unspecified; G44.89 Other headache syndrome; M46.96 Unspecified inflammatory spondylopathy, lumbar region; M1A.9XX0 Chronic gout, unspecified, without tophus (tophi); R20.0 Anesthesia of skin
CPT/HCPCS: 36415; 71010; 78452; 80048; 80053; 82550; 82553; 83880; 84153; 84165; 84484; 85007; 85025; 85651; 86039; 86140; 86431; 93005; 93017; 93306; 93970; 94640; 94664; 94760

== ENCOUNTER 2016-11-20 18:43 | Emergency (ER) | payer MEDICARE, OTHER ==
[~2016-11-20] VITALS: Ht 188 cm; Wt 106.6 kg
[2016-11-20 19:32] VITALS: BP 143/84
[2016-11-20] MEDS ORDERED: IBUPROFEN800 MG ORAL (19:56)
[2016-11-20] MEDS ORDERED: Ketorolac 30mg Inj IM ONE (20:00)
--- NOTE | 2016-11-20 20:15 | Emergency Room Report ---
History of Present Illness General Chief Complaint: Dyspnea/Respdistress Source: Patient, Medical Record Present Illness HPI 75 YOM presents with right sided chest tenderness, worse with movement, worse with lying on chest/stomach. Pain is 5/10, sharp, non radiating. No associ with fever/chills, cough, SOB, abd pain. Patient states he takes [place] at home with minimal improvement. Denies pain is similar to chest pain requiring admission earlier this month. Has history of COPD, non smoker. Per EMR, during last admission to "rule out ACS" he had normal Echo, negative nuclear stress test, and negative serial troponins. 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 Allergies: Coded Allergies: No Known Allergies (Verified , 06/04/09) Patient History Past Medical History: COPD, other - atypical chest pain Past Surgical History: none Pertinent Family History: none Social History: Reports: smoking Immunizations: UTD Reviewed Nursing Documentation: PMH: Agreed, PSxH: Agreed Nursing Documentation-PMH Hx Cardiac Problems: Yes Hx Hypertension: Yes Hx COPD: Yes Hx Cancer: Yes Hx Gastrointestinal Problems: No Hx Neurological Problems: No Review of Systems All Other Systems: negative except mentioned in HPI Physical Exam Vital Signs Date Time Temp Pulse Resp B/P Pulse Ox O2 Delivery O2 Flow Rate FiO2 11/20/16 19:04 98.2 72 16 154/92 98 Room Air 11/20/16 19:32 2.0 Sp02 EP Interpretation: reviewed, normal General Appearance: normal inspection, well appearing, no apparent distress, alert, GCS 15, non-toxic Head: normocephalic, atraumatic Eyes: bilateral eye EOMI, bilateral eye PERRL ENT: normal ENT inspection, hearing grossly normal, normal voice Neck: normal inspection, full range of motion, supple, no bony tend Respiratory: normal inspection, lungs clear, normal breath sounds, no respiratory distress, no retraction, no accessory muscle use, no wheezing, other - significant ttp of right chest wall. Pain worse with movement. No rash seen. Cardiovascular #1: regular rate, rhythm, no edema Gastrointestinal: normal inspection, normal bowel sounds, non tender, soft, no guarding, no hernia Genitourinary: no CVA tenderness Musculoskeletal: normal inspection, back normal, normal range of motion, Oksana' s Sign negative Neurologic: normal inspection, alert, oriented x3, responsive, director instructional material III-XII nml as tested, motor strength/tone normal, speech normal Psychiatric: normal inspection, judgement/insight normal, mood/affect normal Skin: normal inspection, normal color, no rash Lymphatic: normal inspection Medical Decision Making Diagnostic Impression: Primary Impression: Atypical chest pain ER Course 75 YOM with 2 days right sided chest wall ttp. Likely costochondritis given reproducible, worse with movement, tender Low suspicion for ACS given recent normal nuclear stress test, echo, and negative serial troponins Unlikely COPD exac as lungs are CTAB on serial exam, no recent URI symptoms or cough ECG shows same left axis deviation seen on previous ECG. No new ST depression or elevation or other ischemia Advised NSAIDS as needed for costochondritis and PMD followup DC home EKG Diagnostic Results Rate: normal Rhythm: NSR ST Segments: no acute changes ASA given to the pt in ED: No Rhythm Strip Diag. Results EP Interpretation: yes Rate: 74 Rhythm: NSR, no PVC's, no ectopy Last Vital Signs Date Time Temp Pulse Resp B/P Pulse Ox O2 Delivery O2 Flow Rate FiO2 11/20/16 19:32 98.5 70 22 143/84 100 Room Air 11/20/16 19:32 2.0 Status: improved Disposition: HOME, SELF-CARE Condition: Improved Scripts Ibuprofen* (MOTRIN*) 800 Mg Tablet 800 MG ORAL THREE TIMES A DAY, #30 TAB 0 Refills Prov: ATA BHARDWAJ M.D. 11/20/16 Patient Instructions: Nonspecific Chest Pain Additional Instructions: - Take ibuprofen 3x a day with food for chest pain - Follow up with your doctor in 1 week ATA BHARDWAJ M.D. Nov 20, 2016 20:15
[2016-11-20 21:00] VITALS: BP 139/79
[2016-11-20 21:10] VITALS: BP 132/82
--- NOTE | 2016-11-21 14:16 | Cardiology Report ---
APPROVED REPORT EKG Measurement Heart [id number] ID [id number] Normal sinus rhythm Left axis deviation Right bundle branch block Abnormal ECG
== END 2016-11-20 21:10 | disposition home or self-care (01) ==
LOC: EMR 20:05
DX: R07.89 Other chest pain (principal); F17.200 Nicotine dependence, unspecified, uncomplicated; I10 Essential (primary) hypertension; C80.1 Malignant (primary) neoplasm, unspecified; J44.9 Chronic obstructive pulmonary disease, unspecified
CPT/HCPCS: 93005; 96372; 99283; J1885

== ENCOUNTER 2017-09-16 17:51 | Emergency (ER) | payer MEDICARE, OTHER ==
[~2017-09-16] VITALS: Ht 188 cm; Wt 106.6 kg
[~2017-09-16 17:51] MED LIST changes: +IBUPROFEN800 MG ORAL
[2017-09-16 18:07] VITALS: BP 178/105
--- NOTE | 2017-09-16 18:29 | Emergency Room Report ---
History of Present Illness General Chief Complaint: Dyspnea/Respdistress Source: Patient Present Illness HPI 76-year-old male brought in by son with one week of changing colored sputum, cough history of COPD on home oxygen Denies fevers or chills, denies recent treatment for pneumonia, or recent chest x-ray denies sick contacts His recent hospitalization ran out of home meds nebulizer albuterol Requesting [place] for chronic pain in the knees Allergies: Coded Allergies: No Known Allergies (Verified , 06/04/09) Patient History Past Medical History: see triage record, old chart reviewed, COPD Past Surgical History: none Pertinent Family History: none Social History: Denies: smoking, alcohol use, drug use Immunizations: UTD Reviewed Nursing Documentation: PMH: Agreed, PSxH: Agreed Nursing Documentation-PMH Past Medical History: No History, Except For Hx Cardiac Problems: Yes Hx Hypertension: Yes Hx COPD: Yes Hx Cancer: Yes - prostate Hx Gastrointestinal Problems: No Hx Neurological Problems: No Review of Systems All Other Systems: negative except mentioned in HPI Physical Exam Vital Signs Date Time Temp Pulse Resp B/P (MAP) Pulse Ox O2 Delivery O2 Flow Rate FiO2 09/16/17 17:57 98.4 86 22 169/102 99 Nasal Cannula 2.0 Sp02 EP Interpretation: reviewed, normal General Appearance: normal inspection, well appearing, no apparent distress, alert, GCS 15, non-toxic Head: normocephalic, atraumatic Eyes: bilateral eye PERRL, bilateral eye EOMI ENT: normal ENT inspection, hearing grossly normal, normal voice Neck: normal inspection, full range of motion, supple, no bony tend Respiratory: normal inspection, lungs clear, normal breath sounds, no respiratory distress, no retraction, no accessory muscle use, speaking full sentences Cardiovascular #1: regular rate, rhythm, no edema, other - very faint end expiratory wheeze Gastrointestinal: normal inspection, normal bowel sounds, non tender, soft, no guarding, no hernia Genitourinary: no CVA tenderness Musculoskeletal: normal inspection, back normal, normal range of motion, Oksana' s Sign negative Neurologic: normal inspection, alert, oriented x3, responsive, can marker III-XII nml as tested, motor strength/tone normal, speech normal Psychiatric: normal inspection, judgement/insight normal, mood/affect normal Skin: normal inspection, normal color, no rash Medical Decision Making Diagnostic Impression: Primary Impression: Cough Additional Impression: COPD exacerbation ER Course 76-year-old male with possibly mild COPD exacerbation afebrile vital Signs stable Nonseptic appearing Not hypoxic or tachypneic Chest x-ray negative for acute pneumonia Improved with one albuterol and Tylenol with Codeine for chronic knee pain Refilled home albuterol nebulizer Will give azithromycin Z-Jorgito for possible COPD exacerbation given recent change in sputum color advised close primary care followup Chest X-Ray Diagnostic Results Chest X-Ray Diagnostic Results : Chest X-Ray Ordered: Yes # of Views/Limited/Complete: 1 View Indication: Other - off EP Interpretation: Yes Interpretation: no consolidation, no effusion, no pneumothorax, no acute cardiopulmonary disease Impression: No acute disease Electronically Signed by: Dr Ata Bhardwaj MD Last Vital Signs Date Time Temp Pulse Resp B/P (MAP) Pulse Ox O2 Delivery O2 Flow Rate FiO2 09/16/17 17:57 98.4 86 22 169/102 99 Nasal Cannula 2.0 Status: improved Disposition: HOME, SELF-CARE Scripts Albuterol Sulfate* (ALBUTEROL SULFATE HHN*) 2.5 Mg/3 Ml Vial.neb 2.5 MG HHN Q4H Y for Shortness of Breath, #25 VIAL Prov: ATA BHARDWAJ M.D. 09/16/17 Azithromycin* (ZITHROMAX*) 250 Mg Tablet 250 MG ORAL DAILY, #6 TAB 0 Refills Take two tables once daily for 1 day, then one tablet once daily for 4 days. Prov: ATA BHARDWAJ M.D. 09/16/17 ATA BHARDWAJ M.D. Sep 16, 2017 18:29
[2017-09-16] MEDS ORDERED: Albuterol ud Inhalation HHN ONE (18:30)
[2017-09-16] MEDS ORDERED: Tylenol #3 tab (300mg/30mg) ORAL ONE (18:30)
[2017-09-16] MEDS ORDERED: ZITHROMAX250 MG ORAL (18:34)
[2017-09-16] MEDS ORDERED: ALBUTEROL2.5 MG/3 M HHN (18:34)
[2017-09-16 19:05] VITALS: BP 164/102
--- NOTE | 2017-09-17 09:41 | Diagnostic Imaging Report ---
Indication: SOB Technique: One view of the chest Comparison: 10/30/2016 Findings: The heart is mildly enlarged. Aorta is tortuous and ectatic. The lungs and pleural spaces are clear Impression: Mild cardiomegaly No acute process
== END 2017-09-16 19:05 | disposition home or self-care (01) ==
LOC: EMR 18:30
DX: J44.1 Chronic obstructive pulmonary disease with (acute) exacerbation (principal); I10 Essential (primary) hypertension; Z85.46 Personal history of malignant neoplasm of prostate
CPT/HCPCS: 71010; 94640; 94664; 99284

== ENCOUNTER 2017-09-18 07:49 | Inpatient (IN) | payer MEDICARE, OTHER ==
[~2017-09-18] VITALS: Ht 188 cm; Wt 106.6 kg
[~2017-09-18 07:49] MED LIST changes: +ALBUTEROL2.5 MG/3 M HHN; +ZITHROMAX250 MG ORAL
[2017-09-18] MEDS ORDERED: Sodium Chloride 500ML 500 ML IV ONE (08:17)
[2017-09-18 08:30] VITALS: BP 140/83
--- NOTE | 2017-09-18 08:46 | Emergency Room Report ---
History of Present Illness General Chief Complaint: General Complaint Source: Patient Present Illness HPI 76-year-old male presents ED complaining of shortness of breath. Patient has history of COPD and is on home oxygen. States for the last several days he's been experiencing a cough with yellowish phlegm. Patient was seen here few days ago. Had negative chest x-ray and breathing treatment. Patient states he felt somewhat better but the symptoms returned. Denies chest pain. Denies fevers or chills. Patient also complaining of back pain and knee pain. Has chronic history of pain. 04/29, dull, nonradiating. Denies any recent injury. No other aggravating relieving factors. Denies any other associated symptoms Allergies: Coded Allergies: MOMETASONE FUROATE (Verified Allergy, Unknown, 09/18/17) Patient History Past Medical History: HTN, asthma, COPD, psych hx, other - prostate Pertinent Family History: none Social History: Denies: smoking, alcohol use, drug use Immunizations: UTD Reviewed Nursing Documentation: PMH: Agreed, PSxH: Agreed Nursing Documentation-PMH Hx Cardiac Problems: Yes - cardiac syndrome Hx Hypertension: Yes Hx Pacemaker: No Hx Asthma: Yes Hx COPD: Yes Hx Diabetes: No Hx Cancer: Yes - PC Hx Gastrointestinal Problems: Yes - intestinal pulmonary Hx Dialysis: No History Of Psychiatric Problem: Yes - PTSD. Anxiety Hx Neurological Problems: No Hx Cerebrovascular Accident: No Hx Seizures: No Review of Systems All Other Systems: negative except mentioned in HPI Physical Exam Vital Signs Date Time Temp Pulse Resp B/P (MAP) Pulse Ox O2 Delivery O2 Flow Rate FiO2 09/18/17 07:52 97.9 80 18 144/85 98 Nasal Cannula 2.0 Sp02 EP Interpretation: reviewed, normal General Appearance: no apparent distress, alert, GCS 15, non-toxic Head: normocephalic, atraumatic Eyes: bilateral eye normal inspection, bilateral eye PERRL ENT: hearing grossly normal, normal pharynx, no angioedema, normal voice Neck: full range of motion, supple/symm/no masses Respiratory: chest non-tender, decreased breath sounds, speaking full sentences , wheezing Cardiovascular #1: regular rate, rhythm, no edema Cardiovascular #2: 2+ carotid (R), 2+ carotid (L), 2+ radial (R), 2+ radial (L) , 2+ dorsalis pedis (R), 2+ dorsalis pedis (L) Gastrointestinal: normal bowel sounds, non tender, soft, non-distended, no guarding, no rebound Rectal: deferred Genitourinary: normal inspection, no CVA tenderness Musculoskeletal: back normal, gait/station normal, normal range of motion, non- tender Neurologic: alert, oriented x3, responsive, motor strength/tone normal, sensory intact, speech normal Psychiatric: judgement/insight normal, memory normal, mood/affect normal, no suicidal/homicidal ideation Reflexes: 3+ bicep (R), 3+ bicep (L), 3+ tricep (R), 3+ tricep (L), 3+ knee (R) , 3+ knee (L) Skin: normal color, no rash, warm/dry, well hydrated Lymphatic: no adenopathy Medical Decision Making Diagnostic Impression: Primary Impression: COPD exacerbation ER Course Hospital Course 76-year-old M presenting to ED with SOB. h/o COPD Differential diagnoses include: Pneumonia, CHF exacerbation, pneumothorax, fluid overload Clinical course Patient placed on stretcher. On plc programmer with stable vitals. After initial history and physical, I ordered nebulizer treatments. I ordered labs, IV fluids, EKG, chest x-ray, blood cultures, UA. Labs - no leukocytosis noted, hemoglobin/hematocrit stable, electrolytes okay, lactate okay, troponins negative CXR - cardiomegaly. no infiltrates abx given. IVFs given. Case discussed with Dr. Arreaga and he agreed to the patient to his service for further care and support I feel this is a highly complex case requiring extensive working including EKG/ Rhythm strip, Xray/CT/US, Blood/urine lab work, repeat exams while in ED, and administration of strong opiates/narcotics for pain control, admission to hospital or close patient follow up. Diagnosis - COPD exacerbation Patient admitted to telemetry in serious condition Labs Test 09/18/17 09:15 White Blood Count 4.2 K/UL (4.8-10.8) Red Blood Count 4.08 M/UL (4.70-6.10) Hemoglobin 12.5 G/DL (14.2-18.0) Hematocrit 39.4 % (42.0-52.0) Mean Corpuscular Volume 97 FL (80-99) Mean Corpuscular Hemoglobin 30.7 PG (27.0-31.0) Mean Corpuscular Hemoglobin Concent 31.8 G/DL (32.0-36.0) Red Cell Distribution Width 14.3 % (11.6-14.8) Platelet Count 211 K/UL (150-450) Mean Platelet Volume 9.1 FL (6.5-10.1) Neutrophils (%) (Auto) 40.2 % (45.0-75.0) Lymphocytes (%) (Auto) 44.9 % (20.0-45.0) Monocytes (%) (Auto) 11.8 % (1.0-10.0) Eosinophils (%) (Auto) 1.4 % (0.0-3.0) Basophils (%) (Auto) 1.8 % (0.0-2.0) Urine Color Pale yellow Urine Appearance Clear Urine pH 5 (4.5-8.0) Urine Specific [place] 1.005 (1.005-1.035) Urine Protein Negative (NEGATIVE) Urine Glucose (UA) Negative (NEGATIVE) Urine Ketones Negative (NEGATIVE) Urine Occult Blood 1+ (NEGATIVE) Urine Nitrite Negative (NEGATIVE) Urine Bilirubin Negative (NEGATIVE) Urine Urobilinogen Normal MG/DL (0.0-1.0) Urine Leukocyte Esterase Negative (NEGATIVE) Urine RBC 0-2 /HPF (0 - 0) Urine WBC 0 /HPF (0 - 0) Urine Squamous Epithelial Cells None /LPF (NONE/OCC) Urine Bacteria Occasional /HPF (NONE) Sodium Level 138 MMOL/L (136-145) Potassium Level 3.8 MMOL/L (3.5-5.1) Chloride Level 103 MMOL/L (98-107) Carbon Dioxide Level 28 MMOL/L (21-32) Anion Gap 7 mmol/L (5-15) Blood Urea Nitrogen 17 mg/dL (7-18) Creatinine 1.0 MG/DL (0.55-1.30) Estimat Glomerular Filtration Rate mL/min (>60) Glucose Level 93 MG/DL (74-106) Calcium Level 9.2 MG/DL (8.5-10.1) Total Bilirubin 0.5 MG/DL (0.2-1.0) Aspartate Amino Transf (AST/SGOT) 17 U/L (15-37) Alanine Aminotransferase (ALT/SGPT) 16 U/L (12-78) Alkaline Phosphatase 97 U/L (46-116) Total Creatine Kinase 295 U/L (26-308) Creatine Kinase MB 2.6 NG/ML (0.0-3.6) Creatine Kinase MB Relative Index 0.8 Troponin I 0.006 ng/mL (0.000-0.056) Pro-B-Type Natriuretic Peptide 151 pg/mL (0-125) Total Protein 8.9 G/DL (6.4-8.2) Albumin 3.0 G/DL (3.4-5.0) Globulin 5.9 g/dL Albumin/Globulin Ratio 0.5 (1.0-2.7) EKG Diagnostic Results Rate: normal Rhythm: NSR ST Segments: no acute changes ASA given to the pt in ED: No Rhythm Strip Diag. Results EP Interpretation: yes Rhythm: NSR, no PVC's Chest X-Ray Diagnostic Results Chest X-Ray Diagnostic Results : Chest X-Ray Ordered: Yes # of Views/Limited/Complete: 1 View Indication: Shortness of Breath Interpretation: no consolidation, no effusion, no pneumothorax, no acute cardiopulmonary disease Impression: Other - cardiomegaly Electronically Signed by: Electronically signed by Dirk Palma MD Last Vital Signs Date Time Temp Pulse Resp B/P (MAP) Pulse Ox O2 Delivery O2 Flow Rate FiO2 09/18/17 07:52 97.9 80 18 144/85 98 Nasal Cannula 2.0 Status: improved Disposition: ADMITTED INPATIENT Condition: Serious Referrals: NON PHYSICIAN (PCP) DIRK PALMA M.D. Sep 18, 2017 08:46
[2017-09-18] MEDS: Ipratropium 0.02% Inh Soln 2.5ml UD HHN SCH ×3 (08:52→09:18)
[2017-09-18] MEDS: Albuterol ud Inhalation HHN SCH ×3 (08:52→09:19)
[2017-09-18 09:21] LABS: BASOPHILS % (AUTO) 1.8 % (0.0-2.0); EOSINOPHILS % (AUTO) 1.4 % (0.0-3.0); LYMPHOCYTES % (AUTO) 44.9 % (20.0-45.0); MEAN CORPUSCULAR HEMOGLOBIN 30.7 PG (27.0-31.0); MEAN CORPUSCULAR HGB CONC 31.8 G/DL (32.0-36.0); MEAN CORPUSCULAR VOLUME 97 FL (80-99); MEAN PLATELET VOLUME 9.1 FL (6.5-10.1); MONOCYTES % (AUTO) 11.8 % (1.0-10.0); NEUTROPHILS % (AUTO) 40.2 % (45.0-75.0); PLATELET COUNT 211 K/UL (150-450); RED BLOOD COUNT 4.08 M/UL (4.70-6.10); RED CELL DISTRIBUTION WIDTH 14.3 % (11.6-14.8); WHITE BLOOD COUNT 4.2 K/UL (4.8-10.8)
[2017-09-18 09:30] LABS: ANION GAP 7 mmol/L (5-15); APPEARANCE,URINE CLEAR; CALCIUM 9.2 MG/DL (8.5-10.1); CARBON DIOXIDE 28 MMOL/L (21-32); CHLORIDE 103 MMOL/L (98-107); KETONES,URINE NEGATIVE (NEGATIVE); LEUKOCYTE ESTERASE ,URINE NEGATIVE (NEGATIVE); NITRITE,URINE NEGATIVE (NEGATIVE); PH,URINE 5 (4.5-8.0); POTASSIUM 3.8 MMOL/L (3.5-5.1); PROTEIN,URINE NEGATIVE (NEGATIVE); SODIUM 138 MMOL/L (136-145); UROBILINOGEN,URINE NORMAL MG/DL (0.0-1.0)
[2017-09-18 09:44] LABS: ALANINE AMINOTRANSFERASE 16 U/L (12-78); ALBUMIN/GLOBULIN RATIO 0.5 (1.0-2.7); ASPARTATE AMINO TRANSFERASE 17 U/L (15-37); CKMB 2.6 NG/ML (0.0-3.6); TOTAL PROTEIN 8.9 G/DL (6.4-8.2)
[2017-09-18 09:51] LABS: RBC,URINE 0-2 /HPF (0 - 0); WBC,URINE 0 /HPF (0 - 0)
[2017-09-18 09:52] LABS: BACTERIA,URINE OCCASIONAL /HPF
[2017-09-18] MEDS ORDERED: UNOBMED (10:32)
[2017-09-18 10:58] VITALS: BP 131/75
[2017-09-18] MEDS ORDERED: Norco 10mg/325mg tab ORAL ONE (11:15)
--- NOTE | 2017-09-18 12:27 | Diagnostic Imaging Report ---
Indication: SOB Technique: One view of the chest Comparison: 09/16/2017 Findings: There is bilateral basilar atelectatic changes. Pleural spaces are otherwise clear. The heart is mildly enlarged. The aorta is tortuous and ectatic. Upper mediastinum is unremarkable. No significant change Impression: Bilateral basilar atelectasis. 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
--- NOTE | 2017-09-18 14:08 | Infectious Diseases Prog Note ---
Assessment/Plan Problems: (1) Acute bronchitis Assessment & Plan: will start levaquin empiric coverage, for 5-7 days , influenza screening is negative (2) COPD exacerbation Assessment & Plan: due to the above, continue nebulizer treatment and oxygen as needed (3) Prostate CA Assessment & Plan: in remission, no symptoms (4) Anemia of chronic disease Subjective Allergies: Coded Allergies: MOMETASONE FUROATE (Verified Allergy, Unknown, 09/18/17) Objective Vital Signs Last 24 Hour Vital Signs Date Time Temp Pulse Resp B/P (MAP) Pulse Ox O2 Delivery O2 Flow Rate FiO2 09/18/17 13:37 71 24 132/76 100 Nasal Cannula 2.0 09/18/17 10:58 97.6 91 16 131/75 99 Nasal Cannula 2.0 09/18/17 09:38 80 16 99 Nasal Cannula 2.0 09/18/17 08:48 28 09/18/17 08:48 77 16 96 Nasal Cannula 2.0 09/18/17 08:48 77 16 Nasal Cannula 2.0 09/18/17 08:30 98.1 79 16 140/83 100 Nasal Cannula 2.0 09/18/17 08:30 79 16 Nasal Cannula 2.0 09/18/17 07:52 97.9 80 18 144/85 98 Nasal Cannula 2.0 Height (Feet): 6 Height (Inches): 2.00 Weight (Pounds): 235 Microbiology Date/Time Source Procedure Growth Status 09/18/17 09:15 Nasal Nares Influenza Types A,B Antigen (HANANE) - Final Complete Laboratory Tests Test 09/18/17 09:15 White Blood Count 4.2 K/UL (4.8-10.8) L Red Blood Count 4.08 M/UL (4.70-6.10) L Hemoglobin 12.5 G/DL (14.2-18.0) L Hematocrit 39.4 % (42.0-52.0) L Mean Corpuscular Volume 97 FL (80-99) Mean Corpuscular Hemoglobin 30.7 PG (27.0-31.0) Mean Corpuscular Hemoglobin Concent 31.8 G/DL (32.0-36.0) L Red Cell Distribution Width 14.3 % (11.6-14.8) Platelet Count 211 K/UL (150-450) Mean Platelet Volume 9.1 FL (6.5-10.1) Neutrophils (%) (Auto) 40.2 % (45.0-75.0) L Lymphocytes (%) (Auto) 44.9 % (20.0-45.0) Monocytes (%) (Auto) 11.8 % (1.0-10.0) H Eosinophils (%) (Auto) 1.4 % (0.0-3.0) Basophils (%) (Auto) 1.8 % (0.0-2.0) Urine Color Pale yellow Urine Appearance Clear Urine pH 5 (4.5-8.0) Urine Specific [place] 1.005 (1.005-1.035) Urine Protein Negative (NEGATIVE) Urine Glucose (UA) Negative (NEGATIVE) Urine Ketones Negative (NEGATIVE) Urine Occult Blood 1+ (NEGATIVE) H Urine Nitrite Negative (NEGATIVE) Urine Bilirubin Negative (NEGATIVE) Urine Urobilinogen Normal MG/DL (0.0-1.0) Urine Leukocyte Esterase Negative (NEGATIVE) Urine RBC 0-2 /HPF (0 - 0) H Urine WBC 0 /HPF (0 - 0) Urine Squamous Epithelial Cells None /LPF (NONE/OCC) Urine Bacteria Occasional /HPF (NONE) Sodium Level 138 MMOL/L (136-145) Potassium Level 3.8 MMOL/L (3.5-5.1) Chloride Level 103 MMOL/L (98-107) Carbon Dioxide Level 28 MMOL/L (21-32) Anion Gap 7 mmol/L (5-15) Blood Urea Nitrogen 17 mg/dL (7-18) Creatinine 1.0 MG/DL (0.55-1.30) Estimat Glomerular Filtration Rate mL/min (>60) Glucose Level 93 MG/DL (74-106) Lactic Acid Level 1.00 mmol/L (0.66-2.22) Calcium Level 9.2 MG/DL (8.5-10.1) Total Bilirubin 0.5 MG/DL (0.2-1.0) Aspartate Amino Transf (AST/SGOT) 17 U/L (15-37) Alanine Aminotransferase (ALT/SGPT) 16 U/L (12-78) Alkaline Phosphatase 97 U/L (46-116) Total Creatine Kinase 295 U/L (26-308) Creatine Kinase MB 2.6 NG/ML (0.0-3.6) Creatine Kinase MB Relative Index 0.8 Troponin I 0.006 ng/mL (0.000-0.056) Pro-B-Type Natriuretic Peptide 151 pg/mL (0-125) H Total Protein 8.9 G/DL (6.4-8.2) H Albumin 3.0 G/DL (3.4-5.0) L Globulin 5.9 g/dL Albumin/Globulin Ratio 0.5 (1.0-2.7) L Noman Queen M.D. Sep 18, 2017 14:08
--- NOTE | 2017-09-18 14:32 | Cardiac Electrophysiology PN ---
Subjective Subjective Dictated [id number] Objective Last 24 Hour Vital Signs Date Time Temp Pulse Resp B/P (MAP) Pulse Ox O2 Delivery O2 Flow Rate FiO2 09/18/17 13:37 71 24 132/76 100 Nasal Cannula 2.0 09/18/17 10:58 97.6 91 16 131/75 99 Nasal Cannula 2.0 09/18/17 09:38 80 16 99 Nasal Cannula 2.0 28 09/18/17 08:48 28 09/18/17 08:48 77 16 96 Nasal Cannula 2.0 28 09/18/17 08:48 77 16 Nasal Cannula 2.0 28 09/18/17 08:30 98.1 79 16 140/83 100 Nasal Cannula 2.0 09/18/17 08:30 79 16 Nasal Cannula 2.0 09/18/17 07:52 97.9 80 18 144/85 98 Nasal Cannula 2.0 Intake and Output 09/18/17 09/19/17 19:00 07:00 Intake Total 650 ml Balance 650 ml Intake IV Total 650 ml # Voids 1 Laboratory Tests Test 09/18/17 09:15 White Blood Count 4.2 K/UL (4.8-10.8) L Red Blood Count 4.08 M/UL (4.70-6.10) L Hemoglobin 12.5 G/DL (14.2-18.0) L Hematocrit 39.4 % (42.0-52.0) L Mean Corpuscular Volume 97 FL (80-99) Mean Corpuscular Hemoglobin 30.7 PG (27.0-31.0) Mean Corpuscular Hemoglobin Concent 31.8 G/DL (32.0-36.0) L Red Cell Distribution Width 14.3 % (11.6-14.8) Platelet Count 211 K/UL (150-450) Mean Platelet Volume 9.1 FL (6.5-10.1) Neutrophils (%) (Auto) 40.2 % (45.0-75.0) L Lymphocytes (%) (Auto) 44.9 % (20.0-45.0) Monocytes (%) (Auto) 11.8 % (1.0-10.0) H Eosinophils (%) (Auto) 1.4 % (0.0-3.0) Basophils (%) (Auto) 1.8 % (0.0-2.0) Urine Color Pale yellow Urine Appearance Clear Urine pH 5 (4.5-8.0) Urine Specific [place] 1.005 (1.005-1.035) Urine Protein Negative (NEGATIVE) Urine Glucose (UA) Negative (NEGATIVE) Urine Ketones Negative (NEGATIVE) Urine Occult Blood 1+ (NEGATIVE) H Urine Nitrite Negative (NEGATIVE) Urine Bilirubin Negative (NEGATIVE) Urine Urobilinogen Normal MG/DL (0.0-1.0) Urine Leukocyte Esterase Negative (NEGATIVE) Urine RBC 0-2 /HPF (0 - 0) H Urine WBC 0 /HPF (0 - 0) Urine Squamous Epithelial Cells None /LPF (NONE/OCC) Urine Bacteria Occasional /HPF (NONE) Sodium Level 138 MMOL/L (136-145) Potassium Level 3.8 MMOL/L (3.5-5.1) Chloride Level 103 MMOL/L (98-107) Carbon Dioxide Level 28 MMOL/L (21-32) Anion Gap 7 mmol/L (5-15) Blood Urea Nitrogen 17 mg/dL (7-18) Creatinine 1.0 MG/DL (0.55-1.30) Estimat Glomerular Filtration Rate mL/min (>60) Glucose Level 93 MG/DL (74-106) Lactic Acid Level 1.00 mmol/L (0.66-2.22) Calcium Level 9.2 MG/DL (8.5-10.1) Total Bilirubin 0.5 MG/DL (0.2-1.0) Aspartate Amino Transf (AST/SGOT) 17 U/L (15-37) Alanine Aminotransferase (ALT/SGPT) 16 U/L (12-78) Alkaline Phosphatase 97 U/L (46-116) Total Creatine Kinase 295 U/L (26-308) Creatine Kinase MB 2.6 NG/ML (0.0-3.6) Creatine Kinase MB Relative Index 0.8 Troponin I 0.006 ng/mL (0.000-0.056) Pro-B-Type Natriuretic Peptide 151 pg/mL (0-125) H Total Protein 8.9 G/DL (6.4-8.2) H Albumin 3.0 G/DL (3.4-5.0) L Globulin 5.9 g/dL Albumin/Globulin Ratio 0.5 (1.0-2.7) L Microbiology Date/Time Source Procedure Growth Status 09/18/17 09:15 Nasal Nares Influenza Types A,B Antigen (HANANE) - Final Complete TARA OLIVERA Sep 18, 2017 14:31
[2017-09-18 15:35] VITALS: BP 109/92
--- NOTE | 2017-09-18 15:59 | Nephrology Progress Note ---
Assessment/Plan Problem List: (1) Hypertension (2) ACS (acute coronary syndrome) (3) Constipation (4) Degenerative joint disease (5) COPD exacerbation Plan H&P DICTATED # [id number] Subjective Constitutional: Denies: no symptoms, chills, diaphoresis, fever, malaise, weakness, other HEENT: Denies: no symptoms, eye pain, blurred vision, tearing, double vision, ear pain, ear discharge, nose pain, nose congestion, throat pain, throat swelling, mouth pain, mouth swelling, other Genitourinary: Denies: no symptoms, burning, discharge, frequency, flank pain, hematuria, incontinence, pain, urgency, other Neurologic/Psychiatric: Denies: no symptoms, anxiety, depressed, emotional problems, headache, numbness, paresthesia, pre-existing deficit, seizure, tingling, tremors, weakness, other Objective Objective Last 24 Hour Vital Signs Date Time Temp Pulse Resp B/P (MAP) Pulse Ox O2 Delivery O2 Flow Rate FiO2 09/18/17 15:35 98.1 82 20 109/92 98 09/18/17 13:37 71 24 132/76 100 Nasal Cannula 2.0 09/18/17 10:58 97.6 91 16 131/75 99 Nasal Cannula 2.0 09/18/17 09:38 80 16 99 Nasal Cannula 2.0 28 09/18/17 08:48 28 09/18/17 08:48 77 16 96 Nasal Cannula 2.0 28 09/18/17 08:48 77 16 Nasal Cannula 2.0 28 09/18/17 08:30 98.1 79 16 140/83 100 Nasal Cannula 2.0 09/18/17 08:30 79 16 Nasal Cannula 2.0 09/18/17 07:52 97.9 80 18 144/85 98 Nasal Cannula 2.0 Intake and Output 09/18/17 09/19/17 19:00 07:00 Intake Total 650 ml Balance 650 ml Intake IV Total 650 ml # Voids 1 Laboratory Tests 09/18/17 09:15: White Blood Count 4.2L, Red Blood Count 4.08L, Hemoglobin 12.5L, Hematocrit 39.4L, Mean Corpuscular Volume 97, Mean Corpuscular Hemoglobin 30.7, Mean Corpuscular Hemoglobin Concent 31.8L, Red Cell Distribution Width 14.3, Platelet Count 211, Mean Platelet Volume 9.1, Neutrophils (%) (Auto) 40.2L, Lymphocytes (%) (Auto) 44.9, Monocytes (%) (Auto) 11.8H, Eosinophils (%) (Auto) 1.4, Basophils (%) (Auto) 1.8, Urine Color Pale yellow, Urine Appearance Clear, Urine pH 5, Urine Specific [place] 1.005, Urine Protein Negative, Urine Glucose (UA) Negative, Urine Ketones Negative, Urine Occult Blood 1+H, Urine Nitrite Negative, Urine Bilirubin Negative, Urine Urobilinogen Normal, Urine Leukocyte Esterase Negative, Urine RBC 0-2H, Urine WBC 0, Urine Squamous Epithelial Cells None, Urine Bacteria Occasional, Sodium Level 138, Potassium Level 3.8, Chloride Level 103, Carbon Dioxide Level 28, Anion Gap 7, Blood Urea Nitrogen 17 , Creatinine 1.0, Estimat Glomerular Filtration Rate , Glucose Level 93, Lactic Acid Level 1.00, Calcium Level 9.2, Total Bilirubin 0.5, Aspartate Amino Transf (AST/SGOT) 17, Alanine Aminotransferase (ALT/SGPT) 16, Alkaline Phosphatase 97, Total Creatine Kinase 295, Creatine Kinase MB 2.6, Creatine Kinase MB Relative Index 0.8, Troponin I 0.006, Pro-B-Type Natriuretic Peptide 151H, Total Protein 8.9H, Albumin 3.0L, Globulin 5.9, Albumin/Globulin Ratio 0.5L Height (Feet): 6 Height (Inches): 2.00 Weight (Pounds): 235 General Appearance: no apparent distress, alert Neck: non-tender, normal alignment Cardiovascular: normal rate, regular rhythm Respiratory/Chest: decreased breath sounds Abdomen: non tender, soft, no organomegaly, no mass Extremities: non-tender, normal inspection Neurologic: alert, oriented x 3, responsive, normal mood/affect Karen Salomon N.P. Sep 18, 2017 15:59
[2017-09-18] MEDS ORDERED: Albuterol/Ipratropium 3ml neb HHN PRN (17:00)
--- NOTE | 2017-09-18 19:30 | Consultation ---
DATE OF CONSULTATION: 09/18/2017 CARDIOLOGY CONSULTATION REFERRING PHYSICIAN: Hesham Arreaga M.D. REASON FOR CONSULTATION: Accelerated hypertension and shortness of breath. HISTORY OF PRESENT ILLNESS: The patient is a 76-year-old gentleman with history of hypertension, COPD, asthma, history of depression, anxiety, and history of prostate cancer, whom I am familiar from previous admission in October 2016. At that time, he had chest pain and was ruled out for myocardial infarction. He had a nuclear stress test that showed no ischemia. Ejection fraction at that time was 55% to 60%. The patient presented to the emergency room complaining of increasing shortness of breath. His son states that his blood pressure was as high as 210 also. The patient was admitted and Cardiology consultation was obtained for further evaluation. The patient also was complaining of back pain and knee pain without any recent injury. PAST MEDICAL HISTORY: 1. Hypertension. 2. COPD. 3. Depression. 4. Asthma. 5. Prostate cancer. SOCIAL HISTORY: He lives at home. Does not smoke or drink alcohol. FAMILY HISTORY: Noncontributory. REVIEW OF SYSTEMS: Review of system was performed and was negative other than what was mentioned in the history of present illness. PHYSICAL EXAMINATION: VITAL SIGNS: Blood pressure is 144/85, pulse 80, respirations 18, and temperature 97.9 degrees. HEAD AND NECK: Showed no JVD or carotid bruits. LUNGS: Coarse rhonchi bilaterally. CARDIOVASCULAR: Shows regular S1 and S2 with no gallop. ABDOMEN: Soft. EXTREMITIES: A 1+ pitting edema. LABORATORY AND DIAGNOSTIC DATA: His EKG showed normal sinus rhythm with right superior axis and pulmonary disease pattern and complete right bundle-branch block. His labs, white count of 4.2, hemoglobin of 12.5, hematocrit of 39.4, and platelet count of 211. Sodium is 138, potassium 3.8, BUN of 17, creatinine 1, and glucose of 93. His troponin is negative. BNP is 151. ASSESSMENT AND PLAN: 1. Accelerated hypertension. We will resume the patient's antihypertensive agents. Based on the records from October 2016, he was on Avapro 300 mg daily, Norvasc 10 mg daily, and p.r.n. clonidine. 2. Chronic obstructive pulmonary disease exacerbation. 3. Depression and anxiety. 4. History of prostate cancer. 5. Normal left ventricular systolic function based on echocardiogram in October 2016. Thank very much, Dr. Arreaga for allowing me to participate in the care of this patient. Please do not hesitate to contact me for any questions regarding my evaluation. Aron Holguin M.D. DR: Von JOB#: [id number] CC:
[2017-09-18 20:00] VITALS: BP 144/104
--- NOTE | 2017-09-18 20:15 | Consultation ---
DATE OF CONSULTATION: 09/18/2017 INFECTIOUS DISEASE CONSULTATION CONSULTING PHYSICIAN: Noman Queen M.D. REQUESTING PHYSICIAN: Hesham Arreaga M.D. REASON FOR CONSULTATION: Acute bronchitis, possible pneumonia with COPD exacerbation, recommendation for antibiotics treatment. HISTORY OF PRESENT ILLNESS: The patient is a 76-year-old male with past medical history of cardiac disease, hypertension, asthma, COPD, prostate cancer, anxiety, and posttraumatic stress disorder, who was brought in to [facility] for progressive cough with yellowish phlegm. The patient has been coughing for the last couple of days, yellowish and greenish phlegm sometimes tinged with blood. He has been using his inhalers at home with no significant improvement. The patient's symptom persistent, so he was brought in for evaluation and further management. He denied any chest pain, fever or chills, headache or blurry vision, sore throat, runny nose, or recent upper respiratory infection. In the emergency room, the patient had a chest x-ray which was negative for any acute infiltration or effusion. He received one dose of levofloxacin and I was consulted by the primary provider for antibiotics treatment and further care. REVIEW OF SYSTEMS: A 12 point of system review was all negative apart from the one I mentioned above in my H and P. PAST MEDICAL HISTORY: Significant for hypertension, asthma, COPD, psych disorder, and prostate cancer. PAST SURGICAL HISTORY: Negative. ALLERGIES: He is allergic to mometasone furoate. MEDICATIONS: He received levofloxacin and albuterol with Atrovent in the emergency room. FAMILY HISTORY: Negative for recurrent infection or immunocompromised condition. SOCIAL HISTORY: The patient lives with family. Unemployed. Denied using any drugs, tobacco, or alcohol. PHYSICAL EXAMINATION: VITAL SIGNS: Temperature 97.6, pulse 91, respirations 16, blood pressure 131/75, and saturation 99% on 2 L nasal cannula. GENERAL: An elderly male, up in bed, awake, alert, oriented, not in distress. HEENT: Normocephalic, atraumatic. Pupils reactive to light equally. Nonicteric sclerae. Normal oral mucosa. No exudate or thrush. NECK: Supple. Full range of motion. No lymphadenopathy. CARDIOVASCULAR: Regular rate and rhythm. No murmur or gallop. LUNGS: He had decreased breathing sound and wheezing mainly at the bases. Normal breathing effort. ABDOMEN: Soft, nontender, nondistended. Normal bowel sounds. No guarding. No rebound. EXTREMITIES: No edema. No cyanosis. SKIN: No rash or hives. LABORATORY DATA: Labs showed white count of 4.2, hemoglobin of 12.5, and platelet count of 211,000. BUN of 17, creatinine of 1. AST of 17, ALT of 16. Urinalysis was negative for nitrite and leukocyte esterase and showed occasional bacteria. IMAGING STUDIES: Chest x-ray showed bilateral basilar atelectasis with borderline cardiomegaly. ASSESSMENT AND RECOMMENDATION: 1. Acute bronchitis. We will send sputum for culture and we will start Levaquin empiric treatment for 5-7 days. Influenza screening was negative. 2. Chronic obstructive pulmonary disease exacerbation due to the above. Continue nebulizer treatment and oxygen as needed with antibiotics. 3. History of prostate cancer, in remission, no symptoms. 4. Anemia of chronic disease, stable. Monitor hemoglobin and hematocrit. Transfuse if needed. Thank you for the consultation. Infectious disease will continue to follow. Please feel free to call with any question. Noman Queen M.D. DR: EDUARDA JOB#: [id number] CC:
[2017-09-18] MEDS: Heparin 5000 units/ml inj SUBQ SCH (20:35)
[2017-09-18] MEDS ORDERED: HYDROmorphone 1mg/ml Carpuject IVP PRN (22:15)
[2017-09-18] MEDS ORDERED: Zolpidem 5mg tab ORAL PRN (22:15)
[2017-09-19] VITALS: BP 137/93
[2017-09-19] MEDS: HYDROmorphone 1mg/ml Carpuject IVP PRN ×4 (00:24→22:26)
[2017-09-19] MEDS ORDERED: Solu-MEDROL 125mg Inj IVP ONE ×2 (03:00)
--- NOTE | 2017-09-19 04:00 | HX and Phyl Repo 2 Sig ---
DATE OF ADMISSION: 09/18/2017 INTERNAL MEDICINE HISTORY AND PHYSICAL HISTORY OF PRESENT ILLNESS: The patient is a 76-year-old male with a past medical history significant for hypertension, depression, lumbar arthropathy, degenerative joint disease, and COPD, who presented to the emergency room with worsening shortness of breath, chest pain, and cough with phlegm. According to the patient, he was at home yesterday when he experienced some weakness and headache. He checked his blood pressure and stated that his systolic was 228 and the diastolic was above 100. He also stated that he did experience some shortness of breath with chest pain, which prompted his visit to the emergency room. He denies any nausea or vomiting, but stated some abdominal pain, otherwise, in lower quadrants. He denies any fever or chills, but stated that his sputum is thick and yellow in color. He stated that the shortness of breath has been worsening over a period of one week. He is O2 dependent at home. He is lying in bed at this time in no apparent distress. He stated that the shortness of breath has improved. PAST MEDICAL HISTORY: Hypertension, depression, lumbar arthropathy, COPD, and degenerative joint disease. MEDICATIONS: Home medications include albuterol hand-held nebulizer 2.5 mg q.4 h. p.r.n. shortness of breath, promethazine with codeine 10 mL q.i.d. p.r.n., Clarinex 5 mg p.o. daily, Nexium 40 mg p.o. daily, Advair 500/50 mcg one puff daily, Mucinex one tablet p.o. daily, ibuprofen 800 mg p.o. t.i.d. p.r.n., Combivent 18 mcg b.i.d., Nasonex 1 spray daily, prednisone 10 mg p.o. b.i.d., theophylline 200 mg p.o. b.i.d., Spiriva one puff daily, and valsartan 320 mg p.o. daily. ALLERGIES: He has no known allergies. SOCIAL HISTORY: The patient lives alone at home. Denies any history of smoking. No alcohol use and no illicit drug use. FAMILY HISTORY: Noncontributory. REVIEW OF SYSTEMS: A full 12-point review of systems was reviewed with the patient and positives as stated in HPI. PHYSICAL EXAMINATION: GENERAL: The patient is lying in bed, in no apparent distress. VITAL SIGNS: Blood pressure 109/92, heart rate is 98, respiratory rate is 20, temperature is 98.1 degrees, and O2 saturation is 98% on 2 liters. HEENT: Head is normocephalic and atraumatic with moist mucous membranes. Pupils are equal, round, and reactive to light and accommodation. NECK: Supple. No JVD noted. LUNGS: Diminished bilaterally. No wheezing. No crackles. CARDIOVASCULAR: Regular rate and rhythm. ABDOMEN: Soft, nontender, and nondistended. Positive bowel sounds in all 4 quadrants. EXTREMITIES: No edema. No cyanosis. No clubbing. NEUROLOGIC: He is awake, alert, and oriented x3 with no focal deficits. LABORATORY AND DIAGNOSTIC DATA: CBC, white count 4.2, hemoglobin 12.5, hematocrit 39.4, and platelet count of 211. BMP, sodium 138, potassium 3.8, chloride 103, bicarbonate 28, BUN 17, creatinine 1.0, blood glucose is 93. Liver enzymes are negative. BNP 151. Troponin is negative. Radiologic findings, chest x-ray bilateral basilar atelectasis changes. Pleural spaces are otherwise clear. The heart is mildly enlarged. The aorta is tortuous and ectatic. Upper mediastinum is unremarkable. No significant change. Impression, bilateral bibasilar atelectasis, borderline cardiomegaly. No definite acute process or significant interchange agent two days. ASSESSMENT: 1. Chronic obstructive pulmonary disease exacerbation. 2. Shortness of breath. 3. Accelerated hypertension, controlled. 4. Cough. 5. Atypical chest pain. 6. Degenerative joint disease. PLAN OF MANAGEMENT: We will admit the patient to telemetry unit. He has been seen by Cardiology. We will follow up with their recommendations. We will continue on home medications at this time. Continue O2 therapy. We will add nebulizer treatments to treatment plan. We will monitor vitals. Monitor lytes and correct as needed. We will obtain a Pulmonology consult as well. We will monitor cardiac enzymes as well. DVT and PPI. We will monitor the patient's overall response to treatment. Hesham Arreaga M.D. Karen Salomon DR: Ro JOB#: [id number] CC:
--- NOTE | 2017-09-19 06:46 | Consultation ---
DATE OF CONSULTATION: 09/19/2017 PULMONARY CONSULTATION REASON FOR CONSULTATION: Evaluation of the patient with COPD exacerbation. HISTORY OF PRESENT ILLNESS: This is a 76-year-old male, who does not have any history of smoking, however, was exposed to a lot of toxic chemicals for a long time where he worked in the [employer]. He presented to the emergency room with the complaint of shortness of breath. He is on oxygen at home and he has been having cough with yellowish sputum and at times blood-tinged at home. He had been seen few days earlier with a similar problem and at that time, he did not have any infiltrate on his chest x-ray and he was discharged. He has significant dyspnea on exertion and also has arthritis, mostly of his back and knees. He does not have any history of PE or DVT. No melena. No malignancy. He does have occasional blood in his sputum when he coughs a lot. PAST MEDICAL HISTORY: Significant for hypertension, BPH, and possibly some psych history and lung injury as mentioned above. FAMILY HISTORY: Noncontributory. SOCIAL HISTORY: No drug use or alcohol use. REVIEW OF SYSTEMS: As above. PHYSICAL EXAMINATION: VITAL SIGNS: Temperature 98.4, pulse of 66, respiratory rate of 14, and blood pressure 137/93. HEENT: Pupils equal, round, and reactive. Conjunctivae clear. Oropharynx, no lesion. NECK: No JVD. Trachea midline. No thyromegaly. LYMPHATICS: No adenopathy. LUNGS: Markedly diminished breath sounds, particularly on the right. Very poor aeration bilaterally. No wheezing. CARDIOVASCULAR: Regular rate. S1, S2. ABDOMEN: Soft. Bowel sounds present. EXTREMITIES: No edema, clubbing, or cyanosis. NEUROLOGIC: Alert. Normal speech. Follows commands. Cranial nerves II to XII grossly intact. Tandem gait. LABORATORY AND DIAGNOSTIC DATA: On his chest x-ray, he has bilateral bibasilar atelectasis. No pleural effusion. On his labs, his WBC is 4.2, hemoglobin 12.5, and platelet count of 211,000. His sodium is 138, potassium 3.8, chloride 103, bicarb 28, BUN 17, creatinine 1, and glucose of 93. Troponin 0.006. His BNP is slightly elevated at 151. Total protein 8.9. Albumin of 3. IMPRESSION: 1. Chronic obstructive pulmonary disease exacerbation. 2. History of depression and anxiety. 3. History of prostate carcinoma. 4. Osteoarthritis. 5. Anemia of chronic disease. 6. Constipation. 7. History of hypertension. 8. Acute coronary syndrome. 9. Acute bronchitis. PLAN: The patient will be continued on Levaquin. He is also on amlodipine 10 mg p.o. daily, Protonix 40 mg p.o. daily, Colace 250 mg p.o. daily, Cozaar 50 mg q.12 hours, Dilaudid p.r.n., Ambien p.r.n., heparin 5000 units subcutaneous q.12, and is also on prednisone 10 mg twice a day and wearing DuoNeb p.r.n., milk of magnesia 30 mL p.r.n., and ibuprofen p.r.n. He is on Dovray p.r.n. We will discontinue his prednisone and instead I gave him Solu-Medrol and check chest CT scan. Again, I would like to thank Dr. Arreaga for the opportunity to evaluate this patient. We will follow with you. Daryn Greenberg M.D. DR: GEOVANNY JOB#: [id number] CC:
[2017-09-19 08:00] VITALS: BP 156/90
[2017-09-19] MEDS: Losartan 50mg tab ORAL SCH ×2 (08:06→21:43)
[2017-09-19] MEDS: Heparin 5000 units/ml inj SUBQ SCH ×2 (08:10→21:45)
[2017-09-19] MEDS: Docusate 250mg cap ORAL SCH (08:15)
--- NOTE | 2017-09-19 10:36 | Cardiac Electrophysiology PN ---
Assessment/Plan Assessment/Plan 1. Accelerated hypertension. Continue Losartan 50 bid , Norvasc 10 mg daily and p.r.n. clonidine. 2. Chronic obstructive pulmonary disease exacerbation. Chest CT on Saturday.Abx per Dr Greenberg 3. Depression and anxiety. 4. History of prostate cancer. 5. Normal left ventricular systolic function based on echocardiogram in October 2016. NOVA RN and Dr. Greenberg Subjective Subjective Feeling better. No chest pain. SOB is better. Objective Last 24 Hour Vital Signs Date Time Temp Pulse Resp B/P (MAP) Pulse Ox O2 Delivery O2 Flow Rate FiO2 09/19/17 09:11 73 09/19/17 08:36 98.4 09/19/17 08:06 156/90 09/19/17 08:06 62 156/90 09/19/17 08:00 97.6 83 20 156/90 99 Nasal Cannula 2.0 09/19/17 04:00 51 09/19/17 00:00 68 09/19/17 00:00 98.4 66 14 137/93 100 Nasal Cannula 2.0 09/18/17 22:39 88 18 99 Nasal Cannula 2.0 28 09/18/17 22:30 89 20 96 Nasal Cannula 2.0 28 09/18/17 20:00 79 09/18/17 20:00 98.1 85 20 144/104 100 09/18/17 19:59 Nasal Cannula 2.0 28 09/18/17 19:59 98 Nasal Cannula 2.0 28 09/18/17 19:58 73 18 Nasal Cannula 2.0 28 09/18/17 16:00 82 09/18/17 15:35 98.1 82 20 109/92 98 09/18/17 13:37 71 24 132/76 100 Nasal Cannula 2.0 09/18/17 10:58 97.6 91 16 131/75 99 Nasal Cannula 2.0 Intake and Output 09/19/17 09/20/17 19:00 07:00 Intake Total 120 ml Output Total 200 ml Balance -80 ml Intake Oral 120 ml Output Urine Total 200 ml Microbiology Date/Time Source Procedure Growth Status 09/18/17 09:15 Nasal Nares Influenza Types A,B Antigen (HANANE) - Final Complete Objective HEAD AND NECK: Showed no JVD or carotid bruits. LUNGS: Coarse rhonchi bilaterally. CARDIOVASCULAR: Shows regular S1 and S2 with no gallop. ABDOMEN: Soft. EXTREMITIES: A 1+ pitting edema. TARA OLIVERA Sep 19, 2017 10:36
[2017-09-19] MEDS: Milk of Magnesia 30ml Ud ORAL PRN (10:47)
[2017-09-19] MEDS: Solu-MEDROL 125mg Inj IVP SCH ×2 (10:48→18:09)
[2017-09-19 10:54] LABS: BASOPHILS % (AUTO) 0.6 % (0.0-2.0); EOSINOPHILS % (AUTO) 0.1 % (0.0-3.0); LYMPHOCYTES % (AUTO) 19.7 % (20.0-45.0); MEAN CORPUSCULAR HEMOGLOBIN 31.4 PG (27.0-31.0); MEAN CORPUSCULAR HGB CONC 31.9 G/DL (32.0-36.0); MEAN CORPUSCULAR VOLUME 99 FL (80-99); MONOCYTES % (AUTO) 1.1 % (1.0-10.0); NEUTROPHILS % (AUTO) 78.5 % (45.0-75.0); PLATELET COUNT 245 K/UL (150-450); RED BLOOD COUNT 4.36 M/UL (4.70-6.10); RED CELL DISTRIBUTION WIDTH 14.3 % (11.6-14.8); WHITE BLOOD COUNT 3.6 K/UL (4.8-10.8)
[2017-09-19 11:13] LABS: ALANINE AMINOTRANSFERASE 17 U/L (12-78); ALBUMIN/GLOBULIN RATIO 0.5 (1.0-2.7); ANION GAP 8 mmol/L (5-15); ASPARTATE AMINO TRANSFERASE 14 U/L (15-37); CALCIUM 9.4 MG/DL (8.5-10.1); CARBON DIOXIDE 29 MMOL/L (21-32); CHLORIDE 104 MMOL/L (98-107); POTASSIUM 4.1 MMOL/L (3.5-5.1); SODIUM 140 MMOL/L (136-145); THYROID STIMULATING HORMONE 0.694 uiU/mL (0.358-3.740); TOTAL PROTEIN 9.3 G/DL (6.4-8.2)
[2017-09-19] MEDS: Budesonide HHN 0.25mg/2ml ud HHN SCH ×2 (11:22→21:00)
[2017-09-19 12:00] VITALS: BP 146/96
--- NOTE | 2017-09-19 14:15 | Infectious Diseases Prog Note ---
Assessment/Plan Problems: (1) Acute bronchitis Assessment & Plan: continue levaquin empiric coverage, for 5-7 days , influenza screening is negative (2) COPD exacerbation Assessment & Plan: due to the above, continue nebulizer treatment and oxygen as needed (3) Prostate CA Assessment & Plan: in remission, no symptoms (4) Anemia of chronic disease Assessment & Plan: stable, monitor H/H Subjective Constitutional: Reports: fatigue HEENT: Reports: no symptoms Respiratory: Reports: productive cough, other - wheezing Breasts: Reports: no symptoms Cardiovascular: Reports: no symptoms Gastrointestinal/Abdominal: Reports: no symptoms Genitourinary: Reports: no symptoms Neurologic: Reports: no symptoms Psychiatric: Reports: no symptoms Skin: Reports: no symptoms Endocrine: Reports: no symptoms Hematologic: Reports: no symptoms Musculoskeletal: Reports: no symptoms Allergies: Coded Allergies: NO KNOWN DRUG ALLERGIES (Verified Allergy, Unknown, 09/18/17) Objective Vital Signs Last 24 Hour Vital Signs Date Time Temp Pulse Resp B/P (MAP) Pulse Ox O2 Delivery O2 Flow Rate FiO2 09/19/17 12:06 57 09/19/17 12:00 97.0 71 20 146/96 99 Nasal Cannula 2.0 09/19/17 09:11 73 09/19/17 09:10 61 18 100 Nasal Cannula 2.0 28 09/19/17 09:00 60 18 100 Nasal Cannula 2.0 28 09/19/17 08:36 98.4 09/19/17 08:06 156/90 09/19/17 08:06 62 156/90 09/19/17 08:00 97.6 83 20 156/90 99 Nasal Cannula 2.0 09/19/17 07:00 59 18 Nasal Cannula 2.0 28 09/19/17 07:00 Nasal Cannula 2.0 28 09/19/17 07:00 100 Nasal Cannula 2.0 28 09/19/17 04:00 51 09/19/17 00:00 68 09/19/17 00:00 98.4 66 14 137/93 100 Nasal Cannula 2.0 09/18/17 22:39 88 18 99 Nasal Cannula 2.0 28 09/18/17 22:30 89 20 96 Nasal Cannula 2.0 28 09/18/17 20:00 79 09/18/17 20:00 98.1 85 20 144/104 100 09/18/17 19:59 Nasal Cannula 2.0 28 09/18/17 19:59 98 Nasal Cannula 2.0 28 09/18/17 19:58 73 18 Nasal Cannula 2.0 09/18/17 16:00 82 09/18/17 15:35 98.1 82 20 109/92 98 Height (Feet): 6 Height (Inches): 2.00 Weight (Pounds): 235 General Appearance: WD/WN, no acute distress HEENT: normocephalic, atraumatic, anicteric, mucous membranes moist, PERRL Respiratory/Chest: chest wall non-tender, no respiratory distress, no accessory muscle use, decreased breath sounds, expiratory wheezing Cardiovascular: normal peripheral pulses, normal rate, regular rhythm, no gallop/murmur, no JVD Abdomen: normal bowel sounds, soft, non tender, no organomegaly, non distended , no mass, no scars Extremities: no cyanosis, no clubbing Skin: no rash, no lesions, no ulcers Neurologic/Psychiatric: alert, oriented x 3, responsive Lymphatic: no neck adenopathy, no groin adenopathy Microbiology Date/Time Source Procedure Growth Status 09/18/17 09:15 Nasal Nares Influenza Types A,B Antigen (HANANE) - Final Complete Laboratory Tests Test 09/19/17 10:15 White Blood Count 3.6 K/UL (4.8-10.8) L Red Blood Count 4.36 M/UL (4.70-6.10) L Hemoglobin 13.7 G/DL (14.2-18.0) L Hematocrit 43.0 % (42.0-52.0) Mean Corpuscular Volume 99 FL (80-99) Mean Corpuscular Hemoglobin 31.4 PG (27.0-31.0) H Mean Corpuscular Hemoglobin Concent 31.9 G/DL (32.0-36.0) L Red Cell Distribution Width 14.3 % (11.6-14.8) Platelet Count 245 K/UL (150-450) Mean Platelet Volume 9.0 FL (6.5-10.1) Neutrophils (%) (Auto) 78.5 % (45.0-75.0) H Lymphocytes (%) (Auto) 19.7 % (20.0-45.0) L Monocytes (%) (Auto) 1.1 % (1.0-10.0) Eosinophils (%) (Auto) 0.1 % (0.0-3.0) Basophils (%) (Auto) 0.6 % (0.0-2.0) Sodium Level 140 MMOL/L (136-145) Potassium Level 4.1 MMOL/L (3.5-5.1) Chloride Level 104 MMOL/L (98-107) Carbon Dioxide Level 29 MMOL/L (21-32) Anion Gap 8 mmol/L (5-15) Blood Urea Nitrogen 14 mg/dL (7-18) Creatinine 1.0 MG/DL (0.55-1.30) Estimat Glomerular Filtration Rate mL/min (>60) Glucose Level 139 MG/DL (74-106) H Calcium Level 9.4 MG/DL (8.5-10.1) Total Bilirubin 0.4 MG/DL (0.2-1.0) Aspartate Amino Transf (AST/SGOT) 14 U/L (15-37) L Alanine Aminotransferase (ALT/SGPT) 17 U/L (12-78) Alkaline Phosphatase 97 U/L (46-116) Troponin I 0.017 ng/mL (0.000-0.056) Pro-B-Type Natriuretic Peptide 280 pg/mL (0-125) H Total Protein 9.3 G/DL (6.4-8.2) H Albumin 3.0 G/DL (3.4-5.0) L Globulin 6.3 g/dL Albumin/Globulin Ratio 0.5 (1.0-2.7) L Thyroid Stimulating Hormone (TSH) 0.694 uiU/mL (0.358-3.740) Free Thyroxine 1.02 NG/DL (0.76-1.46) Current Medications Medications (Trade) Dose Ordered Sig/Gilbert Route PRN Reason Start Time Stop Time Status Last Admin Dose Admin Albuterol/ Ipratropium (Albuterol/ Ipratropium) 3 ml Q2H PRN HHN Shortness of Breath 09/18/17 17:00 09/23/17 16:59 09/18/17 22:30 Amlodipine Besylate (Norvasc) 10 mg DAILY ORAL 09/19/17 09:00 10/19/17 08:59 09/19/17 08:06 Budesonide (Pulmicort) 0.5 mg EVERY 12 HOURS HHN 09/19/17 09:00 10/19/17 08:59 09/19/17 11:22 Docusate Sodium (Colace) 250 mg DAILY ORAL 09/19/17 09:00 10/19/17 08:59 09/19/17 08:15 Heparin Sodium (Porcine) (Heparin 5000 units/ml) 5,000 units EVERY 12 HOURS SUBQ 09/18/17 21:00 10/18/17 20:59 09/19/17 08:10 Hydromorphone HCl (Dilaudid) 1 mg Q6H PRN IVP Severe Pain (Pain Scale 7-10) 09/18/17 22:30 09/25/17 22:29 09/19/17 08:06 Ibuprofen (Motrin) 800 mg TIDPRN PRN ORAL For Pain 09/18/17 15:15 10/18/17 15:14 09/18/17 20:30 Levofloxacin 100 ml @ 100 mls/hr Q24H IVPB 09/19/17 10:00 09/26/17 09:59 09/19/17 10:48 Losartan Potassium (Cozaar) 50 mg EVERY 12 HOURS ORAL 09/19/17 09:00 10/19/17 08:59 09/19/17 08:06 Magnesium Hydroxide (Mom) 30 ml BIDPRN PRN ORAL Constipation 09/18/17 17:00 10/18/17 16:59 09/19/17 10:47 Methylprednisolone Sodium Succinate (Solu-MEDROL) 60 mg Q8H IVP 09/19/17 11:00 10/19/17 10:59 09/19/17 10:48 Pantoprazole (Protonix) 40 mg DAILY ORAL 09/19/17 09:00 10/19/17 08:59 09/19/17 08:05 Zolpidem Tartrate (Ambien) 5 mg HSPRN PRN ORAL Insomnia 09/18/17 22:15 09/25/17 22:14 Noman Queen M.D. Sep 19, 2017 14:15
[2017-09-19] MEDS ORDERED: guaiFENesin 100mg/5ml Liq ud ORAL PRN (16:00)
[2017-09-19 16:23] VITALS: BP 155/95
[2017-09-19 20:00] VITALS: BP 138/82
--- NOTE | 2017-09-19 22:51 | Nephrology Progress Note ---
Objective Objective Last 24 Hour Vital Signs Date Time Temp Pulse Resp B/P (MAP) Pulse Ox O2 Delivery O2 Flow Rate FiO2 09/19/17 22:16 53 18 100 Nasal Cannula 2.0 28 09/19/17 22:11 56 18 100 Nasal Cannula 2.0 28 09/19/17 21:43 138/82 09/19/17 20:00 97.7 72 20 138/82 98 09/19/17 19:18 65 18 Nasal Cannula 2.0 28 09/19/17 19:18 Nasal Cannula 2.0 28 09/19/17 19:18 98 Nasal Cannula 2.0 28 09/19/17 17:04 97.9 09/19/17 16:23 97.9 76 20 155/95 100 Nasal Cannula 2.0 09/19/17 15:15 71 09/19/17 12:06 57 09/19/17 12:00 97.0 71 20 146/96 99 Nasal Cannula 2.0 09/19/17 09:11 73 09/19/17 09:10 61 18 100 Nasal Cannula 2.0 28 09/19/17 09:00 60 18 100 Nasal Cannula 2.0 28 09/19/17 08:06 156/90 09/19/17 08:06 62 156/90 09/19/17 08:00 97.6 83 20 156/90 99 Nasal Cannula 2.0 09/19/17 07:00 59 18 Nasal Cannula 2.0 28 09/19/17 07:00 Nasal Cannula 2.0 28 09/19/17 07:00 100 Nasal Cannula 2.0 28 09/19/17 04:00 51 09/19/17 00:00 68 09/19/17 00:00 98.4 66 14 137/93 100 Nasal Cannula 2.0 Intake and Output 09/19/17 09/20/17 19:00 07:00 Intake Total 420 ml Output Total 400 ml Balance 20 ml Intake Oral 420 ml Output Urine Total 400 ml Laboratory Tests 09/19/17 10:15: White Blood Count 3.6L, Red Blood Count 4.36L, Hemoglobin 13.7L, Hematocrit 43.0 , Mean Corpuscular Volume 99, Mean Corpuscular Hemoglobin 31.4H, Mean Corpuscular Hemoglobin Concent 31.9L, Red Cell Distribution Width 14.3, Platelet Count 245, Mean Platelet Volume 9.0, Neutrophils (%) (Auto) 78.5H, Lymphocytes (%) (Auto) 19.7L, Monocytes (%) (Auto) 1.1, Eosinophils (%) (Auto) 0.1, Basophils (%) (Auto) 0.6, Sodium Level 140, Potassium Level 4.1, Chloride Level 104, Carbon Dioxide Level 29, Anion Gap 8, Blood Urea Nitrogen 14, Creatinine 1.0, Estimat Glomerular Filtration Rate , Glucose Level 139H, Calcium Level 9.4, Total Bilirubin 0.4, Aspartate Amino Transf (AST/SGOT) 14L, Alanine Aminotransferase (ALT/SGPT) 17, Alkaline Phosphatase 97, Troponin I 0.017, Pro-B-Type Natriuretic Peptide 280H, Total Protein 9.3H, Albumin 3.0L, Globulin 6.3, Albumin/Globulin Ratio 0.5L, Thyroid Stimulating Hormone (TSH) 0.694, Free Thyroxine 1.02 Height (Feet): 6 Height (Inches): 2.00 Weight (Pounds): 235 LEYLA ARRIAZA Sep 19, 2017 22:51
[2017-09-20] VITALS: BP 139/92
[2017-09-20] MEDS: Solu-MEDROL 125mg Inj IVP SCH ×3 (03:14→19:43)
[2017-09-20 04:00] VITALS: BP 140/92
[2017-09-20] MEDS: HYDROmorphone 1mg/ml Carpuject IVP PRN ×2 (05:32→15:42)
[2017-09-20] MEDS: Docusate 250mg cap ORAL SCH (08:59)
[2017-09-20] MEDS: Losartan 50mg tab ORAL SCH ×2 (08:59→20:44)
[2017-09-20] MEDS: Heparin 5000 units/ml inj SUBQ SCH ×2 (09:03→20:49)
[2017-09-20] MEDS: Budesonide HHN 0.25mg/2ml ud HHN SCH ×2 (09:23→21:13)
[2017-09-20] MEDS: Milk of Magnesia 30ml Ud ORAL PRN ×2 (10:15→15:42)
--- NOTE | 2017-09-20 10:32 | Cardiac Electrophysiology PN ---
Assessment/Plan Assessment/Plan 1. Accelerated hypertension. Continue Losartan 50 bid, Norvasc 10 mg daily and p.r.n. clonidine. 2. Chronic obstructive pulmonary disease exacerbation. Chest CT on Saturday pending per Dr Greenberg 3. Depression and anxiety. 4. History of prostate cancer. 5. Normal left ventricular systolic function based on echocardiogram in October 2016. NOVA RN and Dr. Greenberg Subjective Subjective Feeling better. No chest pain or SOB . RN at bedside.No Arrhythmias on tele except PAC and PVCs Objective Last 24 Hour Vital Signs Date Time Temp Pulse Resp B/P (MAP) Pulse Ox O2 Delivery O2 Flow Rate FiO2 09/20/17 09:38 65 18 100 Nasal Cannula 2.0 28 09/20/17 09:26 62 20 99 2.0 28 09/20/17 09:25 Nasal Cannula 2.0 28 09/20/17 09:24 99 2.0 28 09/20/17 09:00 57 140/92 09/20/17 08:59 140/92 09/20/17 04:00 97.0 73 20 140/92 100 Nasal Cannula 2.0 28 09/20/17 04:00 57 09/20/17 00:00 97.7 63 18 139/92 100 09/20/17 00:00 54 09/19/17 22:16 53 18 100 Nasal Cannula 2.0 28 09/19/17 22:11 56 18 100 Nasal Cannula 2.0 28 09/19/17 21:43 138/82 09/19/17 20:00 72 09/19/17 20:00 97.7 72 20 138/82 98 09/19/17 19:18 65 18 Nasal Cannula 2.0 28 09/19/17 19:18 Nasal Cannula 2.0 28 09/19/17 19:18 98 Nasal Cannula 2.0 28 09/19/17 17:04 97.9 09/19/17 16:23 97.9 76 20 155/95 100 Nasal Cannula 2.0 09/19/17 15:15 71 09/19/17 12:06 57 09/19/17 12:00 97.0 71 20 146/96 99 Nasal Cannula 2.0 Microbiology Date/Time Source Procedure Growth Status 09/18/17 09:15 Blood Blood Culture - Preliminary NO GROWTH AFTER 24 HOURS Resulted 09/18/17 09:15 Blood Blood Culture - Preliminary NO GROWTH AFTER 24 HOURS Resulted 09/18/17 09:15 Nasal Nares MRSA Culture - Final Staphylococcus Aureus - Mrsa Complete 09/18/17 09:15 Nasal Nares Influenza Types A,B Antigen (HANANE) - Final Complete 09/18/17 10:15 Rectum VRE Culture - Final NO VANCOMYCIN RESISTANT ENTEROCOCCUS ... Complete Objective HEAD AND NECK: Showed no JVD or carotid bruits. LUNGS: Coarse rhonchi bilaterally. CARDIOVASCULAR: Regular S1 and S2 with no gallop. ABDOMEN: Soft. EXTREMITIES: A 1+ pitting edema. TARA OLIVERA Sep 20, 2017 10:32
--- NOTE | 2017-09-20 13:37 | Infectious Diseases Prog Note ---
Assessment/Plan Problems: (1) Acute bronchitis Assessment & Plan: improving , will continue levaquin empiric coverage for 5- 7 days , influenza screening is negative (2) COPD exacerbation Assessment & Plan: due to the above, continue nebulizer treatment and oxygen as needed (3) Prostate CA Assessment & Plan: in remission, no symptoms (4) Anemia of chronic disease Assessment & Plan: stable, monitor H/H Subjective Constitutional: Reports: no symptoms HEENT: Reports: no symptoms Respiratory: Reports: shortness of breath, productive cough Breasts: Reports: no symptoms Cardiovascular: Reports: no symptoms Gastrointestinal/Abdominal: Reports: no symptoms Genitourinary: Reports: no symptoms Neurologic: Reports: no symptoms Psychiatric: Reports: no symptoms Skin: Reports: no symptoms Endocrine: Reports: no symptoms Hematologic: Reports: no symptoms Musculoskeletal: Reports: no symptoms Allergies: Coded Allergies: NO KNOWN DRUG ALLERGIES (Verified Allergy, Unknown, 09/18/17) Objective Vital Signs Last 24 Hour Vital Signs Date Time Temp Pulse Resp B/P (MAP) Pulse Ox O2 Delivery O2 Flow Rate FiO2 09/20/17 09:38 65 18 100 Nasal Cannula 2.0 28 09/20/17 09:26 62 20 99 2.0 28 09/20/17 09:25 Nasal Cannula 2.0 28 09/20/17 09:24 99 2.0 28 09/20/17 09:00 57 140/92 09/20/17 08:59 140/92 09/20/17 04:00 97.0 73 20 140/92 100 Nasal Cannula 2.0 28 09/20/17 04:00 57 09/20/17 00:00 97.7 63 18 139/92 100 09/20/17 00:00 54 09/19/17 22:16 53 18 100 Nasal Cannula 2.0 28 09/19/17 22:11 56 18 100 Nasal Cannula 2.0 28 09/19/17 21:43 138/82 09/19/17 20:00 72 09/19/17 20:00 97.7 72 20 138/82 98 09/19/17 19:18 65 18 Nasal Cannula 2.0 28 09/19/17 19:18 Nasal Cannula 2.0 28 09/19/17 19:18 98 Nasal Cannula 2.0 28 09/19/17 17:04 97.9 09/19/17 16:23 97.9 76 20 155/95 100 Nasal Cannula 2.0 09/19/17 15:15 71 Height (Feet): 6 Height (Inches): 2.00 Weight (Pounds): 235 General Appearance: WD/WN, no acute distress HEENT: normocephalic, atraumatic, anicteric, mucous membranes moist, PERRL, EOMI, pharynx normal, supple, no JVD Respiratory/Chest: chest wall non-tender, no respiratory distress, no accessory muscle use, decreased breath sounds, expiratory wheezing Cardiovascular: normal peripheral pulses, normal rate, regular rhythm, no gallop/murmur, no JVD Abdomen: normal bowel sounds, soft, non tender, no organomegaly, non distended , no mass, no scars Extremities: no cyanosis, no clubbing Skin: no rash, no lesions, no ulcers Neurologic/Psychiatric: oriented x 3, responsive Lymphatic: no neck adenopathy, no groin adenopathy Musculoskeletal: normal muscle bulk, no effusion Microbiology Date/Time Source Procedure Growth Status 09/18/17 09:15 Blood Blood Culture - Preliminary NO GROWTH AFTER 24 HOURS Resulted 09/18/17 09:15 Blood Blood Culture - Preliminary NO GROWTH AFTER 24 HOURS Resulted 09/19/17 22:30 Sputum Expectorated Gram Stain - Final Resulted 09/19/17 22:30 Sputum Expectorated Sputum Culture Pending Resulted 09/18/17 09:15 Nasal Nares MRSA Culture - Final Staphylococcus Aureus - Mrsa Complete 09/18/17 09:15 Nasal Nares Influenza Types A,B Antigen (HANANE) - Final Complete 09/18/17 10:15 Rectum VRE Culture - Final NO VANCOMYCIN RESISTANT ENTEROCOCCUS ... Complete Current Medications Medications (Trade) Dose Ordered Sig/Gilbert Route PRN Reason Start Time Stop Time Status Last Admin Dose Admin Albuterol/ Ipratropium (Albuterol/ Ipratropium) 3 ml Q2H PRN HHN Shortness of Breath 09/18/17 17:00 09/23/17 16:59 09/18/17 22:30 Amlodipine Besylate (Norvasc) 10 mg DAILY ORAL 09/19/17 09:00 10/19/17 08:59 09/20/17 09:00 Budesonide (Pulmicort) 0.5 mg EVERY 12 HOURS HHN 09/19/17 09:00 10/19/17 08:59 09/20/17 09:23 Docusate Sodium (Colace) 250 mg DAILY ORAL 09/19/17 09:00 10/19/17 08:59 09/20/17 08:59 Guaifenesin (Robitussin) 200 mg Q4H PRN ORAL For Cough 09/19/17 16:00 10/19/17 15:59 Heparin Sodium (Porcine) (Heparin 5000 units/ml) 5,000 units EVERY 12 HOURS SUBQ 09/18/17 21:00 10/18/17 20:59 09/20/17 09:03 Hydromorphone HCl (Dilaudid) 1 mg Q6H PRN IVP Severe Pain (Pain Scale 7-10) 09/18/17 22:30 09/25/17 22:29 09/20/17 05:32 Ibuprofen (Motrin) 800 mg TIDPRN PRN ORAL For Pain 09/18/17 15:15 10/18/17 15:14 09/18/17 20:30 Levofloxacin 100 ml @ 100 mls/hr Q24H IVPB 09/19/17 10:00 09/26/17 09:59 09/20/17 10:15 Losartan Potassium (Cozaar) 50 mg EVERY 12 HOURS ORAL 09/19/17 09:00 10/19/17 08:59 09/20/17 08:59 Magnesium Hydroxide (Mom) 30 ml BIDPRN PRN ORAL Constipation 09/18/17 17:00 10/18/17 16:59 09/20/17 10:15 Methylprednisolone Sodium Succinate (Solu-MEDROL) 60 mg Q8H IVP 09/19/17 11:00 10/19/17 10:59 09/20/17 10:15 Pantoprazole (Protonix) 40 mg DAILY ORAL 09/19/17 09:00 10/19/17 08:59 09/20/17 09:00 Zolpidem Tartrate (Ambien) 5 mg HSPRN PRN ORAL Insomnia 09/18/17 22:15 09/25/17 22:14 Noman Queen M.D. Sep 20, 2017 13:37
--- NOTE | 2017-09-20 14:31 | Diagnostic Imaging Report ---
APPROVED REPORT CPT Code: 17092 Present Symptoms Comments: Pain BILATERAL: Imaging reveals a patent deep venous system bilaterally. There is no evidence of thrombus within the femoral, popliteal or tibial segments. The greater saphenous veins are also within normal limits. Doppler indicates normal spontaneous flow within these segments. Incidental finding: Enlarged bakers cyst noted at the right and the left popliteal vein level.
--- NOTE | 2017-09-20 16:15 | Progress Note ---
DATE: 09/19/2017 SUBJECTIVE: He still feels short of breath. No complaint of any chest pain. He does have dyspnea on exertion. He was started on Solu-Medrol intravenous. In general, he does use accessory muscles for respiration. OBJECTIVE: GENERAL: He does not appear to be in any acute distress. He does use accessory muscles for respiration. VITAL SIGNS: Temperature 97.7 degrees, pulse of 72, respiratory rate of 20, blood pressure 138/82, and oxygen saturation on O2 two liters nasal cannula 98%. LUNGS: Diminished breath sound bilateral. No wheezing and poor air movement bilateral. CARDIOVASCULAR: Regular rate. S1 and S2. ABDOMEN: Soft. Bowel sounds present. EXTREMITIES: No edema, clubbing or cyanosis. NEUROLOGIC: Alert and normal speech. Follows command. Cranial nerves II through XII grossly intact. No focal, sensory or motor deficit. LABORATORY AND DIAGNOSTIC DATA: WBC 3.6, hemoglobin 13.7, platelet count of 245. Chemistry shows sodium 140, potassium 4.1, chloride 104, bicarbonate of 29, BUN of 14, creatinine 1.0 and glucose 139. BNP is 280. Albumin 300. IMPRESSION: 1. Chronic obstructive pulmonary disease exacerbation. 2. Acute bronchitis. 3. Degenerative joint disease. 4. Exposure to toxic chemicals in the past. 5. History of depression. 6. History of prostate carcinoma. 7. Constipation. 8. History of hypertension. PLAN: We will continue current treatment and we will re-evaluate the patient and may has decreased steroid in the next couple of days. Daryn Greenberg M.D. DR: YOVANNY JOB#: [id number] CC:
[2017-09-20] MEDS ORDERED: Magnesium Citrate Liq Btl ORAL ONE (16:30)
[2017-09-20 20:00] VITALS: BP 140/84
[2017-09-21] VITALS: BP 163/98
[2017-09-21] MEDS: Solu-MEDROL 125mg Inj IVP SCH ×3 (03:00→18:11)
[2017-09-21 04:00] VITALS: BP 148/89
[2017-09-21] MEDS: HYDROmorphone 1mg/ml Carpuject IVP PRN ×3 (04:37→22:38)
[2017-09-21] MEDS: Milk of Magnesia 30ml Ud ORAL PRN (06:27)
--- NOTE | 2017-09-21 06:35 | Nephrology Progress Note ---
Subjective Subjective late entry for 09/20/17 Objective Objective Last 24 Hour Vital Signs Date Time Temp Pulse Resp B/P (MAP) Pulse Ox O2 Delivery O2 Flow Rate FiO2 09/21/17 04:00 56 09/21/17 04:00 96.3 65 18 148/89 90 Nasal Cannula 2.0 09/21/17 02:42 137 09/21/17 00:00 57 09/21/17 00:00 96.4 72 18 163/98 94 Nasal Cannula 2.0 09/20/17 21:25 69 18 99 Nasal Cannula 2.0 28 09/20/17 21:11 61 18 99 2.0 28 09/20/17 20:44 140/84 09/20/17 20:06 99 Nasal Cannula 2.0 28 09/20/17 20:06 Nasal Cannula 2.0 28 09/20/17 20:00 59 09/20/17 20:00 98.1 59 20 140/84 100 Nasal Cannula 2.0 09/20/17 16:12 97.0 09/20/17 16:00 69 09/20/17 12:00 75 09/20/17 09:38 65 18 100 Nasal Cannula 2.0 28 09/20/17 09:26 62 20 99 2.0 28 09/20/17 09:25 Nasal Cannula 2.0 28 09/20/17 09:24 99 2.0 28 09/20/17 09:00 57 140/92 09/20/17 08:59 140/92 09/20/17 08:00 66 Height (Feet): 6 Height (Inches): 2.00 Weight (Pounds): 235 LEYLA ARRIAZA Sep 21, 2017 06:35
[2017-09-21 08:30] VITALS: BP 135/71
[2017-09-21] MEDS: Budesonide HHN 0.25mg/2ml ud HHN SCH ×3 (08:31→20:49)
[2017-09-21] MEDS: Docusate 250mg cap ORAL SCH (09:14)
[2017-09-21] MEDS: Losartan 50mg tab ORAL SCH ×2 (09:49→21:00)
[2017-09-21] MEDS: Heparin 5000 units/ml inj SUBQ SCH ×2 (09:53→21:00)
[2017-09-21 11:37] VITALS: BP 138/81
[2017-09-21 16:01] VITALS: BP 136/89
--- NOTE | 2017-09-21 16:29 | Cardiology Report ---
APPROVED REPORT EKG Measurement Heart [id number] VA [id number] Normal sinus rhythm Right superior axis deviation Pulmonary disease pattern Incomplete right bundle branch block Right ventricular hypertrophy Nonspecific T wave abnormality Prolonged QT Abnormal ECG
--- NOTE | 2017-09-21 16:44 | Infectious Diseases Prog Note ---
Assessment/Plan Problems: (1) Acute bronchitis Assessment & Plan: improving , will continue levaquin empiric coverage for 5- 7 days , influenza screening is negative (2) COPD exacerbation Assessment & Plan: due to the above, continue nebulizer treatment and oxygen as needed (3) Prostate CA Assessment & Plan: in remission, no symptoms (4) Anemia of chronic disease Assessment & Plan: stable, monitor H/H Subjective Constitutional: Reports: no symptoms HEENT: Reports: no symptoms Respiratory: Reports: dry cough Breasts: Reports: no symptoms Cardiovascular: Reports: no symptoms Gastrointestinal/Abdominal: Reports: no symptoms Genitourinary: Reports: no symptoms Neurologic: Reports: no symptoms Psychiatric: Reports: no symptoms Skin: Reports: no symptoms Endocrine: Reports: no symptoms Hematologic: Reports: no symptoms Musculoskeletal: Reports: no symptoms Allergies: Coded Allergies: NO KNOWN DRUG ALLERGIES (Verified Allergy, Unknown, 09/18/17) Objective Vital Signs Last 24 Hour Vital Signs Date Time Temp Pulse Resp B/P (MAP) Pulse Ox O2 Delivery O2 Flow Rate FiO2 09/21/17 16:01 97.7 56 20 136/89 99 09/21/17 11:37 97.2 63 20 138/81 99 Nasal Cannula 2.0 09/21/17 09:50 60 138/72 09/21/17 09:49 138/72 09/21/17 08:42 52 16 98 Nasal Cannula 2.0 28 09/21/17 08:34 Nasal Cannula 2.0 28 09/21/17 08:34 54 16 97 Nasal Cannula 2.0 28 09/21/17 08:33 97 Nasal Cannula 2.0 28 09/21/17 08:30 97.0 64 20 135/71 98 09/21/17 08:00 50 09/21/17 04:00 56 09/21/17 04:00 96.3 65 18 148/89 90 Nasal Cannula 2.0 09/21/17 02:42 137 09/21/17 00:00 57 09/21/17 00:00 96.4 72 18 163/98 94 Nasal Cannula 2.0 09/20/17 21:25 69 18 99 Nasal Cannula 2.0 28 09/20/17 21:11 61 18 99 2.0 28 09/20/17 20:44 140/84 09/20/17 20:06 99 Nasal Cannula 2.0 28 09/20/17 20:06 Nasal Cannula 2.0 28 09/20/17 20:00 59 09/20/17 20:00 98.1 59 20 140/84 100 Nasal Cannula 2.0 Height (Feet): 6 Height (Inches): 2.00 Weight (Pounds): 235 General Appearance: WD/WN, no acute distress HEENT: normocephalic, atraumatic, anicteric, mucous membranes moist, PERRL Respiratory/Chest: chest wall non-tender, normal breath sounds, no respiratory distress, no accessory muscle use, decreased breath sounds, crackles/rales Cardiovascular: normal peripheral pulses, normal rate, regular rhythm, regularly irregular, no gallop/murmur, no JVD Abdomen: normal bowel sounds, soft, non tender, no organomegaly, non distended , no mass, no scars Extremities: no cyanosis, no clubbing Skin: no rash, no lesions, no ulcers Neurologic/Psychiatric: street light wirer II-XII grossly normal, oriented x 3, responsive Microbiology Date/Time Source Procedure Growth Status 09/19/17 22:30 Sputum Expectorated Gram Stain - Final Resulted 09/19/17 22:30 Sputum Expectorated Sputum Culture - Preliminary NORMAL UPPER RESPIRATORY DEN AT 24 ... Resulted Current Medications Medications (Trade) Dose Ordered Sig/Gilbert Route PRN Reason Start Time Stop Time Status Last Admin Dose Admin Albuterol/ Ipratropium (Albuterol/ Ipratropium) 3 ml Q2H PRN HHN Shortness of Breath 09/18/17 17:00 09/23/17 16:59 09/18/17 22:30 Amlodipine Besylate (Norvasc) 10 mg DAILY ORAL 09/19/17 09:00 10/19/17 08:59 09/21/17 09:50 Budesonide (Pulmicort) 0.5 mg EVERY 12 HOURS HHN 09/19/17 09:00 10/19/17 08:59 09/21/17 09:00 Docusate Sodium (Colace) 250 mg DAILY ORAL 09/19/17 09:00 10/19/17 08:59 09/21/17 09:14 Guaifenesin (Robitussin) 200 mg Q4H PRN ORAL For Cough 09/19/17 16:00 10/19/17 15:59 Heparin Sodium (Porcine) (Heparin 5000 units/ml) 5,000 units EVERY 12 HOURS SUBQ 09/18/17 21:00 10/18/17 20:59 09/21/17 09:53 Hydromorphone HCl (Dilaudid) 1 mg Q6H PRN IVP Severe Pain (Pain Scale 7-10) 09/18/17 22:30 09/25/17 22:29 09/21/17 10:43 Ibuprofen (Motrin) 800 mg TIDPRN PRN ORAL For Pain 09/18/17 15:15 10/18/17 15:14 09/18/17 20:30 Levofloxacin 100 ml @ 100 mls/hr Q24H IVPB 09/19/17 10:00 09/26/17 09:59 09/21/17 09:15 Losartan Potassium (Cozaar) 50 mg EVERY 12 HOURS ORAL 09/19/17 09:00 10/19/17 08:59 09/21/17 09:49 Magnesium Hydroxide (Mom) 30 ml BIDPRN PRN ORAL Constipation 09/18/17 17:00 10/18/17 16:59 09/21/17 06:27 Methylprednisolone Sodium Succinate (Solu-MEDROL) 60 mg Q8H IVP 09/19/17 11:00 10/19/17 10:59 09/21/17 10:42 Pantoprazole (Protonix) 40 mg DAILY ORAL 09/19/17 09:00 10/19/17 08:59 09/21/17 09:14 Zolpidem Tartrate (Ambien) 5 mg HSPRN PRN ORAL Insomnia 09/18/17 22:15 09/25/17 22:14 Noman Queen M.D. Sep 21, 2017 16:43
--- NOTE | 2017-09-21 17:21 | Cardiac Electrophysiology PN ---
Assessment/Plan Assessment/Plan 1. Accelerated hypertension. Continue Losartan 50 bid, Norvasc 10 mg daily and p.r.n. clonidine. 2. Chronic obstructive pulmonary disease exacerbation. Chest CT on Saturday pending per Dr Greenberg 3. Depression and anxiety. 4. History of prostate cancer. 5. Normal left ventricular systolic function DW RN Subjective Subjective No chest pain or SOB.No Arrhythmias on tele except PAC and PVCs Objective Last 24 Hour Vital Signs Date Time Temp Pulse Resp B/P (MAP) Pulse Ox O2 Delivery O2 Flow Rate FiO2 09/21/17 16:01 97.7 56 20 136/89 99 09/21/17 11:37 97.2 63 20 138/81 99 Nasal Cannula 2.0 09/21/17 09:50 60 138/72 09/21/17 09:49 138/72 09/21/17 08:42 52 16 98 Nasal Cannula 2.0 28 09/21/17 08:34 Nasal Cannula 2.0 28 09/21/17 08:34 54 16 97 Nasal Cannula 2.0 28 09/21/17 08:33 97 Nasal Cannula 2.0 28 09/21/17 08:30 97.0 64 20 135/71 98 09/21/17 08:00 50 09/21/17 04:00 56 09/21/17 04:00 96.3 65 18 148/89 90 Nasal Cannula 2.0 09/21/17 02:42 137 09/21/17 00:00 57 09/21/17 00:00 96.4 72 18 163/98 94 Nasal Cannula 2.0 09/20/17 21:25 69 18 99 Nasal Cannula 2.0 28 09/20/17 21:11 61 18 99 2.0 28 09/20/17 20:44 140/84 09/20/17 20:06 99 Nasal Cannula 2.0 28 09/20/17 20:06 Nasal Cannula 2.0 28 09/20/17 20:00 59 09/20/17 20:00 98.1 59 20 140/84 100 Nasal Cannula 2.0 Intake and Output 09/21/17 09/22/17 19:00 07:00 Intake Total 240 ml Output Total 1000 ml Balance -760 ml Intake Oral 240 ml Output Urine Total 1000 ml Microbiology Date/Time Source Procedure Growth Status 09/19/17 22:30 Sputum Expectorated Gram Stain - Final Resulted 09/19/17 22:30 Sputum Expectorated Sputum Culture - Preliminary NORMAL UPPER RESPIRATORY DEN AT 24 ... Resulted Objective HEAD AND NECK: Showed no JVD or carotid bruits. LUNGS: Coarse rhonchi bilaterally. CARDIOVASCULAR: Regular S1 and S2 with no gallop. ABDOMEN: Soft. EXTREMITIES: A 1+ pitting edema. TARA OLIVERA Sep 21, 2017 17:20
--- NOTE | 2017-09-21 18:10 | Nephrology Progress Note ---
Assessment/Plan Problem List: (1) Hypertension (2) ACS (acute coronary syndrome) (3) Constipation (4) Degenerative joint disease (5) COPD exacerbation Plan Continue current treatment plan Monitor lytes, correct prn Continue neb treatment Pain management prn F/U with consult recommendations DVT prophylaxis am labs Subjective Constitutional: Denies: no symptoms, chills, diaphoresis, fever, malaise, weakness, other HEENT: Denies: no symptoms, eye pain, blurred vision, tearing, double vision, ear pain, ear discharge, nose pain, nose congestion, throat pain, throat swelling, mouth pain, mouth swelling, other Genitourinary: Denies: no symptoms, burning, discharge, frequency, flank pain, hematuria, incontinence, pain, urgency, other Neurologic/Psychiatric: Denies: no symptoms, anxiety, depressed, emotional problems, headache, numbness, paresthesia, pre-existing deficit, seizure, tingling, tremors, weakness, other Subjective In bed, in no apparent distress, denies discomfort at this time Objective Objective Last 24 Hour Vital Signs Date Time Temp Pulse Resp B/P (MAP) Pulse Ox O2 Delivery O2 Flow Rate FiO2 09/21/17 16:01 97.7 56 20 136/89 99 09/21/17 16:00 99 Nasal Cannula 2.0 09/21/17 16:00 57 09/21/17 12:00 50 09/21/17 11:37 97.2 63 20 138/81 99 Nasal Cannula 2.0 09/21/17 09:50 60 138/72 09/21/17 09:49 138/72 09/21/17 08:42 52 16 98 Nasal Cannula 2.0 28 09/21/17 08:34 Nasal Cannula 2.0 28 09/21/17 08:34 54 16 97 Nasal Cannula 2.0 28 09/21/17 08:33 97 Nasal Cannula 2.0 28 09/21/17 08:30 97.0 64 20 135/71 98 09/21/17 08:00 50 09/21/17 08:00 98 Nasal Cannula 2.0 09/21/17 04:00 56 09/21/17 04:00 96.3 65 18 148/89 90 Nasal Cannula 2.0 09/21/17 02:42 137 09/21/17 00:00 57 09/21/17 00:00 96.4 72 18 163/98 94 Nasal Cannula 2.0 09/20/17 21:25 69 18 99 Nasal Cannula 2.0 28 09/20/17 21:11 61 18 99 2.0 28 09/20/17 20:44 140/84 09/20/17 20:06 99 Nasal Cannula 2.0 28 09/20/17 20:06 Nasal Cannula 2.0 28 09/20/17 20:00 59 09/20/17 20:00 98.1 59 20 140/84 100 Nasal Cannula 2.0 Intake and Output 09/21/17 09/22/17 19:00 07:00 Intake Total 360 ml Output Total 1350 ml Balance -990 ml Intake Oral 360 ml Output Urine Total 1350 ml Height (Feet): 6 Height (Inches): 2.00 Weight (Pounds): 235 General Appearance: no apparent distress, alert EENT: normal ENT inspection Neck: normal alignment Cardiovascular: normal rate, regular rhythm Respiratory/Chest: decreased breath sounds Abdomen: soft Extremities: non-tender Neurologic: alert, oriented x 3, responsive Karen Salomon N.P. Sep 21, 2017 18:10
[2017-09-21 20:00] VITALS: BP 152/96
[2017-09-22] VITALS (8 sets, daily range): BP systolic 141–175; BP diastolic 79–99
[2017-09-22] MEDS: Solu-MEDROL 125mg Inj IVP SCH (03:00)
[2017-09-22] MEDS: HYDROmorphone 1mg/ml Carpuject IVP PRN (04:16)
[2017-09-22 08:02] LABS: BASOPHILS % (AUTO) 0.5 % (0.0-2.0); LYMPHOCYTES % (AUTO) 10.1 % (20.0-45.0); MEAN CORPUSCULAR HEMOGLOBIN 31.2 PG (27.0-31.0); MEAN CORPUSCULAR HGB CONC 31.8 G/DL (32.0-36.0); MEAN CORPUSCULAR VOLUME 98 FL (80-99); MEAN PLATELET VOLUME 9.5 FL (6.5-10.1); NEUTROPHILS % (AUTO) 84.4 % (45.0-75.0); PLATELET COUNT 209 K/UL (150-450); RED BLOOD COUNT 4.33 M/UL (4.70-6.10); RED CELL DISTRIBUTION WIDTH 14.4 % (11.6-14.8); WHITE BLOOD COUNT 7.5 K/UL (4.8-10.8)
[2017-09-22 08:06] LABS: ANION GAP 5 mmol/L (5-15); CALCIUM 8.8 MG/DL (8.5-10.1); CARBON DIOXIDE 29 MMOL/L (21-32); CHLORIDE 103 MMOL/L (98-107); CREATININE 1.1 MG/DL (0.55-1.30); POTASSIUM 4.6 MMOL/L (3.5-5.1); PSA TOTAL 7.81 ng/mL (0.13-4.0); SODIUM 137 MMOL/L (136-145)
[2017-09-22] MEDS: Budesonide HHN 0.25mg/2ml ud HHN SCH ×2 (09:00→21:00)
[2017-09-22] MEDS: Docusate 250mg cap ORAL SCH (09:36)
[2017-09-22] MEDS: Losartan 50mg tab ORAL SCH ×2 (09:37→20:44)
[2017-09-22] MEDS: Heparin 5000 units/ml inj SUBQ SCH ×2 (09:50→20:47)
[2017-09-22] MEDS: Morphine Sulfate 2mg/ml Inj IVP PRN ×2 (11:44→18:29)
--- NOTE | 2017-09-22 13:55 | Infectious Diseases Prog Note ---
Assessment/Plan Problems: (1) Acute bronchitis Assessment & Plan: improving , will continue levaquin empiric coverage for 5- 7 days , influenza screening is negative (2) COPD exacerbation Assessment & Plan: due to the above, continue nebulizer treatment and oxygen as needed (3) Prostate CA Assessment & Plan: in remission, no symptoms (4) Anemia of chronic disease Assessment & Plan: stable, monitor H/H Subjective Constitutional: Reports: no symptoms HEENT: Reports: no symptoms Respiratory: Reports: productive cough Breasts: Reports: no symptoms Cardiovascular: Reports: no symptoms Gastrointestinal/Abdominal: Reports: no symptoms Genitourinary: Reports: no symptoms Neurologic: Reports: no symptoms Psychiatric: Reports: no symptoms Skin: Reports: no symptoms Endocrine: Reports: no symptoms Hematologic: Reports: no symptoms Musculoskeletal: Reports: no symptoms Allergies: Coded Allergies: NO KNOWN DRUG ALLERGIES (Verified Allergy, Unknown, 09/18/17) Objective Vital Signs Last 24 Hour Vital Signs Date Time Temp Pulse Resp B/P (MAP) Pulse Ox O2 Delivery O2 Flow Rate FiO2 09/22/17 12:47 97.3 53 20 144/94 100 09/22/17 12:00 53 09/22/17 11:30 97.1 65 20 141/85 98 Nasal Cannula 2.0 09/22/17 10:02 68 18 99 09/22/17 09:52 67 18 97 Nasal Cannula 2.0 09/22/17 09:38 72 144/88 09/22/17 09:37 144/88 09/22/17 09:30 97.2 72 20 144/88 98 Nasal Cannula 2.0 09/22/17 08:20 97.5 58 20 152/86 99 09/22/17 08:07 Nasal Cannula 2.0 28 09/22/17 08:06 97 Nasal Cannula 2.0 28 09/22/17 08:00 60 09/22/17 04:00 97.3 61 22 175/99 99 Nasal Cannula 09/22/17 04:00 47 09/22/17 00:00 97.5 65 20 149/89 100 Nasal Cannula 09/22/17 00:00 51 09/21/17 21:00 152/96 09/21/17 20:59 60 16 98 Nasal Cannula 2.0 28 09/21/17 20:52 Nasal Cannula 2.0 28 09/21/17 20:52 98 Nasal Cannula 2.0 28 09/21/17 20:49 59 16 98 Nasal Cannula 2.0 28 09/21/17 20:00 96.6 68 22 152/96 100 Nasal Cannula 09/21/17 20:00 75 09/21/17 16:01 97.7 56 20 136/89 99 09/21/17 16:00 99 Nasal Cannula 2.0 09/21/17 16:00 57 Height (Feet): 6 Height (Inches): 2.00 Weight (Pounds): 235 General Appearance: WD/WN, no acute distress HEENT: normocephalic, atraumatic, anicteric, mucous membranes moist, PERRL, EOMI, pharynx normal, supple, no JVD Respiratory/Chest: chest wall non-tender, lungs clear, normal breath sounds, no respiratory distress, no accessory muscle use Cardiovascular: normal peripheral pulses, normal rate, regular rhythm, no gallop/murmur, no JVD Abdomen: normal bowel sounds, soft, non tender, no organomegaly, non distended , no mass, no scars Extremities: no cyanosis, no clubbing Skin: no rash, no lesions Neurologic/Psychiatric: alert, oriented x 3, responsive Lymphatic: no neck adenopathy, no groin adenopathy Musculoskeletal: normal muscle bulk, no effusion Microbiology Date/Time Source Procedure Growth Status 09/19/17 22:30 Sputum Expectorated Gram Stain - Final Resulted 09/19/17 22:30 Sputum Culture - Preliminary Staphylococcus Aureus Resulted Laboratory Tests Test 09/22/17 05:20 09/22/17 06:20 White Blood Count 7.5 K/UL (4.8-10.8) Red Blood Count 4.33 M/UL (4.70-6.10) L Hemoglobin 13.5 G/DL (14.2-18.0) L Hematocrit 42.5 % (42.0-52.0) Mean Corpuscular Volume 98 FL (80-99) Mean Corpuscular Hemoglobin 31.2 PG (27.0-31.0) H Mean Corpuscular Hemoglobin Concent 31.8 G/DL (32.0-36.0) L Red Cell Distribution Width 14.4 % (11.6-14.8) Platelet Count 209 K/UL (150-450) Mean Platelet Volume 9.5 FL (6.5-10.1) Neutrophils (%) (Auto) 84.4 % (45.0-75.0) H Lymphocytes (%) (Auto) 10.1 % (20.0-45.0) L Monocytes (%) (Auto) 5.0 % (1.0-10.0) Eosinophils (%) (Auto) 0.0 % (0.0-3.0) Basophils (%) (Auto) 0.5 % (0.0-2.0) Sodium Level 137 MMOL/L (136-145) Potassium Level 4.6 MMOL/L (3.5-5.1) Chloride Level 103 MMOL/L (98-107) Carbon Dioxide Level 29 MMOL/L (21-32) Anion Gap 5 mmol/L (5-15) Blood Urea Nitrogen 28 mg/dL (7-18) H Creatinine 1.1 MG/DL (0.55-1.30) Estimat Glomerular Filtration Rate mL/min (>60) Glucose Level 110 MG/DL (74-106) H Calcium Level 8.8 MG/DL (8.5-10.1) Prostate Specific Antigen 7.81 ng/mL (0.13-4.0) H Current Medications Medications (Trade) Dose Ordered Sig/Gilbert Route PRN Reason Start Time Stop Time Status Last Admin Dose Admin Albuterol/ Ipratropium (Albuterol/ Ipratropium) 3 ml Q2H PRN HHN Shortness of Breath 09/18/17 17:00 09/23/17 16:59 09/18/17 22:30 Amlodipine Besylate (Norvasc) 10 mg DAILY ORAL 09/19/17 09:00 10/19/17 08:59 09/22/17 09:38 Budesonide (Pulmicort) 0.5 mg EVERY 12 HOURS HHN 09/19/17 09:00 10/19/17 08:59 09/22/17 09:00 Docusate Sodium (Colace) 250 mg DAILY ORAL 09/19/17 09:00 10/19/17 08:59 09/22/17 09:36 Guaifenesin (Robitussin) 200 mg Q4H PRN ORAL For Cough 09/19/17 16:00 10/19/17 15:59 Heparin Sodium (Porcine) (Heparin 5000 units/ml) 5,000 units EVERY 12 HOURS SUBQ 09/18/17 21:00 10/18/17 20:59 09/22/17 09:50 Ibuprofen (Motrin) 800 mg TIDPRN PRN ORAL For Pain 09/18/17 15:15 10/18/17 15:14 09/18/17 20:30 Levofloxacin 100 ml @ 100 mls/hr Q24H IVPB 09/19/17 10:00 09/26/17 09:59 09/22/17 09:38 Losartan Potassium (Cozaar) 50 mg EVERY 12 HOURS ORAL 09/19/17 09:00 10/19/17 08:59 09/22/17 09:37 Magnesium Hydroxide (Mom) 30 ml BIDPRN PRN ORAL Constipation 09/18/17 17:00 10/18/17 16:59 09/21/17 06:27 Methylprednisolone Sodium Succinate (Solu-MEDROL) 40 mg Q12H IVP 09/22/17 15:00 10/19/17 10:59 Metoprolol Succinate (Toprol XL) 50 mg Q12HR ORAL 09/22/17 21:00 10/22/17 20:59 Morphine Sulfate (Morphine Sulfate) 2 mg Q4H PRN IVP For Pain 09/22/17 11:30 09/29/17 11:29 09/22/17 11:44 Pantoprazole (Protonix) 40 mg DAILY ORAL 09/19/17 09:00 10/19/17 08:59 09/22/17 09:36 Zolpidem Tartrate (Ambien) 5 mg HSPRN PRN ORAL Insomnia 09/18/17 22:15 09/25/17 22:14 Noman Queen M.D. Sep 22, 2017 13:55
--- NOTE | 2017-09-22 14:14 | Cardiac Electrophysiology PN ---
Assessment/Plan Assessment/Plan 1. Accelerated hypertension. Continue Losartan 50 bid, Norvasc 10 mg daily. Add p.r.n. iv Hydralazine 2. Chronic obstructive pulmonary disease exacerbation. Chest CT on Saturday pending per Dr Greenberg 3. Depression and anxiety. 4. History of prostate cancer. 5. Normal left ventricular systolic function 6. Mild bradycardia. Avoid clonidine DW RN Subjective Subjective No chest pain. SOB better.Mild erica down to 50s. Objective Last 24 Hour Vital Signs Date Time Temp Pulse Resp B/P (MAP) Pulse Ox O2 Delivery O2 Flow Rate FiO2 09/22/17 12:47 97.3 53 20 144/94 100 09/22/17 12:00 53 09/22/17 11:30 97.1 65 20 141/85 98 Nasal Cannula 2.0 09/22/17 10:02 68 18 99 09/22/17 09:52 67 18 97 Nasal Cannula 2.0 28 09/22/17 09:38 72 144/88 09/22/17 09:37 144/88 09/22/17 09:30 97.2 72 20 144/88 98 Nasal Cannula 2.0 09/22/17 08:20 97.5 58 20 152/86 99 09/22/17 08:07 Nasal Cannula 2.0 28 09/22/17 08:06 97 Nasal Cannula 2.0 28 09/22/17 08:00 60 09/22/17 04:00 97.3 61 22 175/99 99 Nasal Cannula 09/22/17 04:00 47 09/22/17 00:00 97.5 65 20 149/89 100 Nasal Cannula 09/22/17 00:00 51 09/21/17 21:00 152/96 09/21/17 20:59 60 16 98 Nasal Cannula 2.0 28 09/21/17 20:52 Nasal Cannula 2.0 28 09/21/17 20:52 98 Nasal Cannula 2.0 28 09/21/17 20:49 59 16 98 Nasal Cannula 2.0 28 09/21/17 20:00 96.6 68 22 152/96 100 Nasal Cannula 09/21/17 20:00 75 09/21/17 16:01 97.7 56 20 136/89 99 09/21/17 16:00 99 Nasal Cannula 2.0 09/21/17 16:00 57 Intake and Output 09/22/17 09/23/17 19:00 07:00 Intake Total 120 ml Balance 120 ml Intake Oral 120 ml Laboratory Tests Test 09/22/17 05:20 09/22/17 06:20 White Blood Count 7.5 K/UL (4.8-10.8) Red Blood Count 4.33 M/UL (4.70-6.10) L Hemoglobin 13.5 G/DL (14.2-18.0) L Hematocrit 42.5 % (42.0-52.0) Mean Corpuscular Volume 98 FL (80-99) Mean Corpuscular Hemoglobin 31.2 PG (27.0-31.0) H Mean Corpuscular Hemoglobin Concent 31.8 G/DL (32.0-36.0) L Red Cell Distribution Width 14.4 % (11.6-14.8) Platelet Count 209 K/UL (150-450) Mean Platelet Volume 9.5 FL (6.5-10.1) Neutrophils (%) (Auto) 84.4 % (45.0-75.0) H Lymphocytes (%) (Auto) 10.1 % (20.0-45.0) L Monocytes (%) (Auto) 5.0 % (1.0-10.0) Eosinophils (%) (Auto) 0.0 % (0.0-3.0) Basophils (%) (Auto) 0.5 % (0.0-2.0) Sodium Level 137 MMOL/L (136-145) Potassium Level 4.6 MMOL/L (3.5-5.1) Chloride Level 103 MMOL/L (98-107) Carbon Dioxide Level 29 MMOL/L (21-32) Anion Gap 5 mmol/L (5-15) Blood Urea Nitrogen 28 mg/dL (7-18) H Creatinine 1.1 MG/DL (0.55-1.30) Estimat Glomerular Filtration Rate mL/min (>60) Glucose Level 110 MG/DL (74-106) H Calcium Level 8.8 MG/DL (8.5-10.1) Prostate Specific Antigen 7.81 ng/mL (0.13-4.0) H Microbiology Date/Time Source Procedure Growth Status 09/19/17 22:30 Sputum Expectorated Gram Stain - Final Resulted 11/30/17 22:30 Sputum Culture - Preliminary Staphylococcus Aureus Resulted Objective HEAD AND NECK: Showed no JVD or carotid bruits. LUNGS: Coarse rhonchi bilaterally. CARDIOVASCULAR: Regular S1 and S2 with no gallop. ABDOMEN: Soft. EXTREMITIES: A 1+ pitting edema. TARA OLIVERA Sep 22, 2017 14:14
[2017-09-22] MEDS: Solu-MEDROL 40mg Inj IVP SCH (15:15)
--- NOTE | 2017-09-22 16:15 | Consultation ---
DATE OF CONSULTATION: 09/22/2017 TIME SEEN: At 8 a.m. ATTENDING PHYSICIAN: Uziel Gee D.O. SYSTEMS DESIGN ENGINEER: Hesham Arreaga M.D. CHIEF COMPLAINT: Shortness of breath and slight chest pain. BRIEF HISTORY: This is a 76-year-old male, who lives at home, presents with 1-day history of increased shortness of breath, slight substernal chest pain, dull, no radiation, no dizziness, and no passing out. The patient was diagnosed with the above COPD exacerbation, chest pain and hypertension, admitted to telemetry floor for further care. Currently, O2 NC, slightly anxious in bed, oriented x3, in no acute distress. PAST MEDICAL HISTORY: Include hypertension and chronic obstructive pulmonary disease. PAST SURGICAL HISTORY: None. MEDICATIONS: Include Robitussin, Solu-Medrol, levofloxacin, Norvasc, Protonix, Cozaar, Colace, Pulmicort, Dilaudid, Ambien, heparin, albuterol and MOM. ALLERGIES: Denies. SOCIAL HISTORY: No smoking. Occasional alcohol. No intravenous drug abuse. FAMILY HISTORY: Noncontributory. PHYSICAL EXAMINATION: GENERAL: Calm in bed, oriented x3, in no acute distress. VITAL SIGNS: Show temperature is 97, pulse 58, respirations 20, and blood pressure 152/86. CARDIOVASCULAR: No murmur. LUNGS: Poor exchange. ABDOMEN: Bowel sounds positive. Nontender and nondistended. EXTREMITIES: No cyanosis, clubbing, or edema. LABORATORY DATA: Hemoglobin 13.5, otherwise CBC is normal. BUN 28 and glucose 110. Troponin 0.017. BNP is 280. Albumin is 3.0. Urinalysis show 1+ occult blood, otherwise normal. ASSESSMENT: 1. Chronic obstructive pulmonary disease exacerbation. 2. Shortness of breath. 3. Slight chest pain. 4. Hypertension. 5. Malnutrition. PLAN: 1. Continue premedications. 2. Troponin q.8 h. x3. 3. EKG. 4. Pain control. 5. O2 and pulmonary treatment. 6. Taper off steroids. 7. Resume home medications. 8. OT, PT, and dietary evaluation. 9. CBC and BMP in the morning. 10. We will continue to follow this patient medically. Uziel Gee D.O. DR: GAIL JOB#: [id number] CC:
--- NOTE | 2017-09-22 17:30 | Progress Note ---
DATE: 09/20/2017 PULMONARY AND CRITICAL CARE PROGRESS NOTE SUBJECTIVE: He is feeling better, not short of breath. No significant cough. Encouraged him to be more active and to ambulate or to sit on the chair on the bedside. OBJECTIVE: VITAL SIGNS: His temperature 97.0, pulse of 60, respiratory rate 20, blood pressure 140/84, and O2 saturation is 100% on 2 liters nasal cannula. LUNGS: Decreased breath sounds bilaterally. Few rhonchi. Minimal wheezing. No consolidation. CARDIOVASCULAR: Regular rate. S1 and S2. ABDOMEN: Soft. Bowel sounds present. EXTREMITIES: No edema, clubbing, or cyanosis. IMPRESSION: 1. Chronic obstructive pulmonary disease exacerbation. He is improving gradually. 2. History of prostate cancer. 3. Depression. 4. Interstitial lung disease. 5. Acute bronchitis. 6. History of hypertension. 7. Acute coronary syndrome. PLAN: We will continue current care and wean steroids if tolerated. Daryn Greenberg M.D. DR: SISSY JOB#: [id number] CC:
--- NOTE | 2017-09-22 17:45 | Progress Note ---
DATE: 09/22/2017 SUBJECTIVE: The patient is better. Respirations improved. No fever. No significant cough. OBJECTIVE: VITAL SIGNS: Temperature 97.0 degrees, pulse of 64, respiratory rate of 20, blood pressure 135/71, and O2 saturation 98% on 2 liters nasal cannula. LUNGS: Decreased breath sounds bilaterally. No wheezing or consolidation. CARDIOVASCULAR: Regular rate. S1 and S2. ABDOMEN: Soft. Bowel sounds present. EXTREMITIES: No edema, clubbing, or cyanosis. NEUROLOGIC: Alert. Normal speech. Follows commands. Cranial nerves II through XII grossly intact. IMPRESSION: 1. Chronic obstructive pulmonary disease exacerbation. He has improved. We will reduce his steroid dose tomorrow and increase activity as tolerated. 2. History of prostate cancer and is stable. 3. Hypertension. His blood pressure is stable. 4. Degenerative joint disease, chronic pain control. 5. Acute bronchitis, improved. 6. Anemia of chronic disease. Daryn Greenberg M.D. DR: Candi JOB#: [id number] CC:
[2017-09-22] MEDS: Dorzolamide 2% 10ml Btl BOTH EYES SCH (18:00)
[2017-09-22] MEDS: Metoprolol Succinate XL 50mg tab ORAL SCH (20:44)
--- NOTE | 2017-09-22 22:41 | Nephrology Progress Note ---
Assessment/Plan Problem List: (1) Hypertension (2) ACS (acute coronary syndrome) (3) Constipation (4) Degenerative joint disease (5) COPD exacerbation Plan Continue current treatment plan Monitor lytes, correct prn Continue neb treatment Pain management prn F/U with consult recommendations DVT prophylaxis am labs Subjective Constitutional: Denies: no symptoms, chills, diaphoresis, fever, malaise, weakness, other HEENT: Denies: no symptoms, eye pain, blurred vision, tearing, double vision, ear pain, ear discharge, nose pain, nose congestion, throat pain, throat swelling, mouth pain, mouth swelling, other Genitourinary: Denies: no symptoms, burning, discharge, frequency, flank pain, hematuria, incontinence, pain, urgency, other Neurologic/Psychiatric: Denies: no symptoms, anxiety, depressed, emotional problems, headache, numbness, paresthesia, pre-existing deficit, seizure, tingling, tremors, weakness, other Objective Objective Last 24 Hour Vital Signs Date Time Temp Pulse Resp B/P (MAP) Pulse Ox O2 Delivery O2 Flow Rate FiO2 09/22/17 22:30 72 16 98 Nasal Cannula 2.0 28 09/22/17 22:27 62 18 99 Nasal Cannula 2.0 28 09/22/17 20:44 65 157/93 09/22/17 20:44 157/93 09/22/17 20:00 57 09/22/17 20:00 98.6 67 20 157/93 100 Nasal Cannula 09/22/17 19:00 Nasal Cannula 2.0 28 09/22/17 19:00 99 Nasal Cannula 2.0 28 09/22/17 16:24 97.5 67 20 141/79 100 09/22/17 16:00 57 09/22/17 12:47 97.3 53 20 144/94 100 09/22/17 12:00 53 09/22/17 11:30 97.1 65 20 141/85 98 Nasal Cannula 2.0 09/22/17 10:02 68 18 99 09/22/17 09:52 67 18 97 Nasal Cannula 2.0 28 09/22/17 09:38 72 144/88 09/22/17 09:37 144/88 09/22/17 09:30 97.2 72 20 144/88 98 Nasal Cannula 2.0 09/22/17 08:20 97.5 58 20 152/86 99 09/22/17 08:07 Nasal Cannula 2.0 28 09/22/17 08:06 97 Nasal Cannula 2.0 28 09/22/17 08:00 60 09/22/17 04:00 97.3 61 22 175/99 99 Nasal Cannula 09/22/17 04:00 47 09/22/17 00:00 97.5 65 20 149/89 100 Nasal Cannula 09/22/17 00:00 51 Intake and Output 09/22/17 09/23/17 19:00 07:00 Intake Total 700 ml Output Total 1400 ml Balance -700 ml Intake Oral 600 ml IV Total 100 ml Output Urine Total 1400 ml Laboratory Tests 09/22/17 05:20: White Blood Count 7.5, Red Blood Count 4.33L, Hemoglobin 13.5L, Hematocrit 42.5 , Mean Corpuscular Volume 98, Mean Corpuscular Hemoglobin 31.2H, Mean Corpuscular Hemoglobin Concent 31.8L, Red Cell Distribution Width 14.4, Platelet Count 209, Mean Platelet Volume 9.5, Neutrophils (%) (Auto) 84.4H, Lymphocytes (%) (Auto) 10.1L, Monocytes (%) (Auto) 5.0, Eosinophils (%) (Auto) 0.0, Basophils (%) (Auto) 0.5 09/22/17 06:20: Sodium Level 137, Potassium Level 4.6, Chloride Level 103, Carbon Dioxide Level 29, Anion Gap 5, Blood Urea Nitrogen 28H, Creatinine 1.1, Estimat Glomerular Filtration Rate , Glucose Level 110H, Calcium Level 8.8, Prostate Specific Antigen 7.81H Height (Feet): 6 Height (Inches): 2.00 Weight (Pounds): 235 General Appearance: no apparent distress, alert EENT: normal ENT inspection Neck: normal alignment Cardiovascular: normal peripheral pulses, no JVD Respiratory/Chest: decreased breath sounds Abdomen: non tender, soft, no organomegaly Neurologic: alert, oriented x 3, responsive Karen Salomon N.P. Sep 22, 2017 22:40
[2017-09-23] MEDS: Solu-MEDROL 40mg Inj IVP SCH ×2 (03:27→14:25)
[2017-09-23 04:00] VITALS: BP 162/87
[2017-09-23 08:26] LABS: LYMPHOCYTES % (AUTO) 15.2 % (20.0-45.0); MEAN CORPUSCULAR HEMOGLOBIN 31.4 PG (27.0-31.0); MEAN CORPUSCULAR HGB CONC 32.1 G/DL (32.0-36.0); MEAN CORPUSCULAR VOLUME 98 FL (80-99); MEAN PLATELET VOLUME 9.5 FL (6.5-10.1); MONOCYTES % (AUTO) 6.4 % (1.0-10.0); NEUTROPHILS % (AUTO) 77.4 % (45.0-75.0); PLATELET COUNT 204 K/UL (150-450); RED CELL DISTRIBUTION WIDTH 14.4 % (11.6-14.8); WHITE BLOOD COUNT 5.9 K/UL (4.8-10.8)
[2017-09-23 08:35] VITALS: BP 151/81
[2017-09-23 08:35] LABS: ANION GAP 6 mmol/L (5-15); CALCIUM 8.6 MG/DL (8.5-10.1); CARBON DIOXIDE 31 MMOL/L (21-32); CHLORIDE 105 MMOL/L (98-107); POTASSIUM 4.1 MMOL/L (3.5-5.1); SODIUM 141 MMOL/L (136-145)
[2017-09-23] MEDS: Docusate 250mg cap ORAL SCH (08:48)
[2017-09-23] MEDS: Losartan 50mg tab ORAL SCH (08:49)
[2017-09-23] MEDS: Metoprolol Succinate XL 50mg tab ORAL SCH (08:50)
[2017-09-23] MEDS: Heparin 5000 units/ml inj SUBQ SCH (08:52)
[2017-09-23] MEDS: Budesonide HHN 0.25mg/2ml ud HHN SCH (09:14)
[2017-09-23] MEDS ORDERED: Levofloxacin 500mg tab ORAL SCH (10:00)
[2017-09-23] MEDS: Dorzolamide 2% 10ml Btl BOTH EYES SCH ×3 (10:00→18:20)
--- NOTE | 2017-09-23 10:33 | Cardiology Report ---
APPROVED REPORT EXAM: Two-dimensional and M-mode echocardiogram with Doppler and color Doppler. INDICATION Chest Pain M-Mode DIMENSIONS IVSd1.2 (0.7-1.1cm)Left Atrium (MM)3.7 (1.6-4.0cm) LVDd3.7 (3.5-5.6cm)Aortic Root3.4 (2.0-3.7cm) PWd1.7 (0.7-1.1cm)Aortic Cusp Exc.2.1 (1.5-2.0cm) IVSs1.5 cm LVDs2.8 (2.5-4.0cm) PWs1.9 cm Technically difficult study due to poor acoustical windows. Normal left ventricular chamber size, systolic function and wall motion to extent visualized. Left ventricular ejection fraction estimated to be 60 %. No evidence of pericardial effusion. . Mild Left atrial enlargement. Right cardiac chamber sizes are within normal limits. Focal aortic valve sclerosis with adequate cusp excursion. Thickened mitral valve leaflets with normal excursion. Mitral annulus and aortic root calcification. Pulmonic valve not well visualized. Normal tricuspid valve structure. Subcostal views are not well visualized. A color flow and spectral Doppler study was performed and revealed: Trace aortic regurgitation. Mitral diastolic velocities suggest reduced left ventricular relaxation c/w mild LV diastolic dysfunction (Grade I ). Mild tricuspid regurgitation. Tricuspid systolic velocities suggests peak right ventricular systolic pressure of 42 mmHg No Pulmonic regurgitation present.
[2017-09-23] MEDS ORDERED: COZAAR50 MG ORAL (10:54)
[2017-09-23] MEDS ORDERED: TOPROL XL50 MG ORAL (10:55)
[2017-09-23] MEDS ORDERED: LEVAQUIN500 MG ORAL (11:24)
--- NOTE | 2017-09-23 11:40 | Cardiac Electrophysiology PN ---
Assessment/Plan Assessment/Plan 1. Accelerated hypertension. Continue Losartan 50 bid, Norvasc 10 mg daily and p.r.n. iv Hydralazine 2. Chronic obstructive pulmonary disease exacerbation. Chest CT today pending 3. Depression and anxiety. 4. History of prostate cancer. 5. Normal left ventricular systolic function 6. Mild bradycardia. Avoid clonidine DW RN Subjective Subjective No chest pain. HR stable with lowest HR 55. Awaiting CT scan today. Objective Last 24 Hour Vital Signs Date Time Temp Pulse Resp B/P (MAP) Pulse Ox O2 Delivery O2 Flow Rate FiO2 09/23/17 09:24 46 16 98 Nasal Cannula 2.0 28 09/23/17 09:14 46 18 98 Nasal Cannula 2.0 28 09/23/17 08:50 53 151/81 09/23/17 08:49 151/81 09/23/17 08:49 53 151/81 09/23/17 08:35 97.0 53 20 151/81 99 09/23/17 07:50 56 09/23/17 07:27 100 Nasal Cannula 2.0 28 09/23/17 07:27 Nasal Cannula 2.0 28 09/23/17 04:00 96.4 50 20 162/87 100 Nasal Cannula 09/23/17 04:00 41 09/23/17 00:00 51 09/22/17 22:30 72 16 98 Nasal Cannula 2.0 28 09/22/17 22:27 62 18 99 Nasal Cannula 2.0 28 09/22/17 20:44 65 157/93 09/22/17 20:44 157/93 09/22/17 20:00 57 09/22/17 20:00 98.6 67 20 157/93 100 Nasal Cannula 09/22/17 19:00 Nasal Cannula 2.0 28 09/22/17 19:00 99 Nasal Cannula 2.0 28 09/22/17 16:24 97.5 67 20 141/79 100 09/22/17 16:00 57 09/22/17 12:47 97.3 53 20 144/94 100 09/22/17 12:00 53 Intake and Output 09/23/17 09/24/17 19:00 07:00 Intake Total 240 ml Output Total 500 ml Balance -260 ml Intake Oral 240 ml Output Urine Total 500 ml Laboratory Tests Test 09/23/17 07:05 White Blood Count 5.9 K/UL (4.8-10.8) Red Blood Count 4.40 M/UL (4.70-6.10) L Hemoglobin 13.8 G/DL (14.2-18.0) L Hematocrit 43.1 % (42.0-52.0) Mean Corpuscular Volume 98 FL (80-99) Mean Corpuscular Hemoglobin 31.4 PG (27.0-31.0) H Mean Corpuscular Hemoglobin Concent 32.1 G/DL (32.0-36.0) Red Cell Distribution Width 14.4 % (11.6-14.8) Platelet Count 204 K/UL (150-450) Mean Platelet Volume 9.5 FL (6.5-10.1) Neutrophils (%) (Auto) 77.4 % (45.0-75.0) H Lymphocytes (%) (Auto) 15.2 % (20.0-45.0) L Monocytes (%) (Auto) 6.4 % (1.0-10.0) Eosinophils (%) (Auto) 0.0 % (0.0-3.0) Basophils (%) (Auto) 1.0 % (0.0-2.0) Sodium Level 141 MMOL/L (136-145) Potassium Level 4.1 MMOL/L (3.5-5.1) Chloride Level 105 MMOL/L (98-107) Carbon Dioxide Level 31 MMOL/L (21-32) Anion Gap 6 mmol/L (5-15) Blood Urea Nitrogen 20 mg/dL (7-18) H Creatinine 1.0 MG/DL (0.55-1.30) Estimat Glomerular Filtration Rate mL/min (>60) Glucose Level 101 MG/DL (74-106) Calcium Level 8.6 MG/DL (8.5-10.1) Objective HEAD AND NECK: Showed no JVD or carotid bruits. LUNGS: Coarse rhonchi bilaterally. CARDIOVASCULAR: Regular S1 and S2 with no gallop. ABDOMEN: Soft. EXTREMITIES: A 1+ pitting edema. TARA OLIVERA Sep 23, 2017 11:40
[2017-09-23 11:49] VITALS: BP 142/92
--- NOTE | 2017-09-23 12:59 | Diagnostic Imaging Report ---
Clinical Indication: DYSPNEA, chest pain Technique: Spiral acquisitions obtained through the chest. No IV contrast utilized, reason not stated. Multiplanar reconstructions generated. Total dose length product 908 mGycm. CTDIvol(s) 24 mGy. Dose reduction achieved using automated exposure control Comparison: None. Reference made to chest radiograph dated 09/18/2017 Findings:Lungs demonstrate some posterior dependent atelectatic changes. No infiltrates, effusions, masses, or nodules. The heart is mildly enlarged. No pericardial effusion No mediastinal or hilar mass or adenopathy. The esophagus is distended with gas proximally. No definite obstructing lesion is demonstrated. No mediastinal or hilar mass or adenopathy. The thyroid is somewhat prominent in size, otherwise unremarkable. No axillary or chest wall mass or adenopathy. There there are mild compression fracture deformities of the T1 and T3 vertebral bodies The bones are unremarkable otherwise The included upper abdominal anatomy demonstrates multiple hepatic cysts. There are multiple accessory splenules. Impression: No acute pulmonary process Mild cardiomegaly Gaseous distention of the proximal and mid esophagus, probably on the basis of distal dysmotility. No down stream obstructing mass demonstrated, but not completely excludable T1 and T3 vertebral body mild compression fracture deformities, age indeterminate Incidental finding multiple hepatic cysts The CT scanner at [facility] is accredited by the [employer] and the scans are performed using protocols designed to limit radiation exposure to as low as reasonably achievable to attain images of sufficient resolution adequate for diagnostic evaluation.
--- NOTE | 2017-09-23 13:38 | General Progress Note ---
Assessment/Plan Problem List: (1) Malnutrition ICD Codes: E46 - Unspecified protein-calorie malnutrition SNOMED: 18533280 (2) COPD exacerbation ICD Codes: J44.1 - Chronic obstructive pulmonary disease with (acute) exacerbation SNOMED: 670618756790525 (3) Atypical chest pain ICD Codes: R07.89 - Other chest pain SNOMED: 158500208 (4) Hypertension ICD Codes: I10 - Essential (primary) hypertension SNOMED: 68458922 Status: stable, progressing, tolerating diet Assessment/Plan o2 pulm tx ot pt diet cbc bmp am Subjective Constitutional: Reports: weakness Allergies: Coded Allergies: NO KNOWN DRUG ALLERGIES (Verified Allergy, Unknown, 09/18/17) All Systems: reviewed and negative except above Subjective o2nc sl sob Objective Last 24 Hour Vital Signs Date Time Temp Pulse Resp B/P (MAP) Pulse Ox O2 Delivery O2 Flow Rate FiO2 09/23/17 11:49 97.2 60 20 142/92 99 09/23/17 09:24 46 16 98 Nasal Cannula 2.0 28 09/23/17 09:14 46 18 98 Nasal Cannula 2.0 28 09/23/17 08:50 53 151/81 09/23/17 08:49 151/81 09/23/17 08:49 53 151/81 09/23/17 08:35 97.0 53 20 151/81 99 09/23/17 07:50 56 09/23/17 07:27 100 Nasal Cannula 2.0 28 09/23/17 07:27 Nasal Cannula 2.0 28 09/23/17 04:00 96.4 50 20 162/87 100 Nasal Cannula 09/23/17 04:00 41 09/23/17 00:00 51 09/22/17 22:30 72 16 98 Nasal Cannula 2.0 28 09/22/17 22:27 62 18 99 Nasal Cannula 2.0 28 09/22/17 20:44 65 157/93 09/22/17 20:44 157/93 09/22/17 20:00 57 09/22/17 20:00 98.6 67 20 157/93 100 Nasal Cannula 09/22/17 19:00 Nasal Cannula 2.0 28 09/22/17 19:00 99 Nasal Cannula 2.0 28 09/22/17 16:24 97.5 67 20 141/79 100 09/22/17 16:00 57 Intake and Output 09/23/17 09/24/17 19:00 07:00 Intake Total 360 ml Output Total 850 ml Balance -490 ml Intake Oral 360 ml Output Urine Total 850 ml Laboratory Tests 09/23/17 07:05: White Blood Count 5.9, Red Blood Count 4.40L, Hemoglobin 13.8L, Hematocrit 43.1 , Mean Corpuscular Volume 98, Mean Corpuscular Hemoglobin 31.4H, Mean Corpuscular Hemoglobin Concent 32.1, Red Cell Distribution Width 14.4, Platelet Count 204, Mean Platelet Volume 9.5, Neutrophils (%) (Auto) 77.4H, Lymphocytes ( %) (Auto) 15.2L, Monocytes (%) (Auto) 6.4, Eosinophils (%) (Auto) 0.0, Basophils (%) (Auto) 1.0, Sodium Level 141, Potassium Level 4.1, Chloride Level 105, Carbon Dioxide Level 31, Anion Gap 6, Blood Urea Nitrogen 20H, Creatinine 1.0, Estimat Glomerular Filtration Rate , Glucose Level 101, Calcium Level 8.6 Height (Feet): 6 Height (Inches): 2.00 Weight (Pounds): 235 General Appearance: lethargic EENT: normal ENT inspection Neck: non-tender, normal alignment, supple Cardiovascular: normal peripheral pulses, normal rate, regular rhythm Respiratory/Chest: chest wall non-tender, lungs clear, normal breath sounds Abdomen: normal bowel sounds, non tender, soft Extremities: normal inspection Edema: no edema noted Arm (L), no edema noted Arm (R), no edema noted Leg (L), no edema noted Leg (R), no edema noted Pedal (L), no edema noted Pedal (R), no edema noted Generalized Neurologic: alert, motor weakness Skin: normal pigmentation, warm/dry KAUSHIK MARVIN Sep 23, 2017 13:38
--- NOTE | 2017-09-23 13:50 | Infectious Diseases Prog Note ---
Assessment/Plan Problems: (1) Acute bronchitis Assessment & Plan: improving on levaquin empiric coverage , now sputum culture grew MRSA , will add Bactrim and continue levaquin for 7 more days . influenza screening is negative (2) COPD exacerbation Assessment & Plan: due to the above, continue nebulizer treatment and oxygen as needed (3) Prostate CA Assessment & Plan: in remission, no symptoms (4) Anemia of chronic disease Assessment & Plan: stable, monitor H/H Subjective Constitutional: Reports: no symptoms HEENT: Reports: no symptoms Respiratory: Reports: no symptoms Breasts: Reports: no symptoms Cardiovascular: Reports: no symptoms Gastrointestinal/Abdominal: Reports: no symptoms Genitourinary: Reports: no symptoms Neurologic: Reports: no symptoms Psychiatric: Reports: no symptoms Skin: Reports: no symptoms Endocrine: Reports: no symptoms Hematologic: Reports: no symptoms Allergies: Coded Allergies: NO KNOWN DRUG ALLERGIES (Verified Allergy, Unknown, 09/18/17) Objective Vital Signs Last 24 Hour Vital Signs Date Time Temp Pulse Resp B/P (MAP) Pulse Ox O2 Delivery O2 Flow Rate FiO2 09/23/17 11:49 97.2 60 20 142/92 99 09/23/17 09:24 46 16 98 Nasal Cannula 2.0 09/23/17 09:14 46 18 98 Nasal Cannula 2.0 09/23/17 08:50 53 151/81 09/23/17 08:49 151/81 09/23/17 08:49 53 151/81 09/23/17 08:35 97.0 53 20 151/81 99 09/23/17 07:50 56 09/23/17 07:27 100 Nasal Cannula 2.0 09/23/17 07:27 Nasal Cannula 2.0 28 09/23/17 04:00 96.4 50 20 162/87 100 Nasal Cannula 09/23/17 04:00 41 09/23/17 00:00 51 09/22/17 22:30 72 16 98 Nasal Cannula 2.0 09/22/17 22:27 62 18 99 Nasal Cannula 2.0 09/22/17 20:44 65 157/93 09/22/17 20:44 157/93 09/22/17 20:00 57 09/22/17 20:00 98.6 67 20 157/93 100 Nasal Cannula 09/22/17 19:00 Nasal Cannula 2.0 28 09/22/17 19:00 99 Nasal Cannula 2.0 28 09/22/17 16:24 97.5 67 20 141/79 100 09/22/17 16:00 57 Height (Feet): 6 Height (Inches): 2.00 Weight (Pounds): 235 General Appearance: WD/WN, no acute distress HEENT: normocephalic, atraumatic, anicteric, mucous membranes moist, PERRL Respiratory/Chest: chest wall non-tender, lungs clear, normal breath sounds, no respiratory distress, no accessory muscle use Cardiovascular: normal peripheral pulses, normal rate, regular rhythm, no gallop/murmur, no JVD Abdomen: normal bowel sounds, soft, non tender, no organomegaly, non distended , no mass, no scars Extremities: no cyanosis, no clubbing Skin: no rash, no lesions, no ulcers Neurologic/Psychiatric: alert, oriented x 3 Laboratory Tests Test 09/23/17 07:05 White Blood Count 5.9 K/UL (4.8-10.8) Red Blood Count 4.40 M/UL (4.70-6.10) L Hemoglobin 13.8 G/DL (14.2-18.0) L Hematocrit 43.1 % (42.0-52.0) Mean Corpuscular Volume 98 FL (80-99) Mean Corpuscular Hemoglobin 31.4 PG (27.0-31.0) H Mean Corpuscular Hemoglobin Concent 32.1 G/DL (32.0-36.0) Red Cell Distribution Width 14.4 % (11.6-14.8) Platelet Count 204 K/UL (150-450) Mean Platelet Volume 9.5 FL (6.5-10.1) Neutrophils (%) (Auto) 77.4 % (45.0-75.0) H Lymphocytes (%) (Auto) 15.2 % (20.0-45.0) L Monocytes (%) (Auto) 6.4 % (1.0-10.0) Eosinophils (%) (Auto) 0.0 % (0.0-3.0) Basophils (%) (Auto) 1.0 % (0.0-2.0) Sodium Level 141 MMOL/L (136-145) Potassium Level 4.1 MMOL/L (3.5-5.1) Chloride Level 105 MMOL/L (98-107) Carbon Dioxide Level 31 MMOL/L (21-32) Anion Gap 6 mmol/L (5-15) Blood Urea Nitrogen 20 mg/dL (7-18) H Creatinine 1.0 MG/DL (0.55-1.30) Estimat Glomerular Filtration Rate mL/min (>60) Glucose Level 101 MG/DL (74-106) Calcium Level 8.6 MG/DL (8.5-10.1) Current Medications Medications (Trade) Dose Ordered Sig/Gilbert Route PRN Reason Start Time Stop Time Status Last Admin Dose Admin Albuterol/ Ipratropium (Albuterol/ Ipratropium) 3 ml Q2H PRN HHN Shortness of Breath 09/18/17 17:00 09/23/17 16:59 09/18/17 22:30 Amlodipine Besylate (Norvasc) 10 mg DAILY ORAL 09/19/17 09:00 10/19/17 08:59 09/23/17 08:49 Budesonide (Pulmicort) 0.5 mg EVERY 12 HOURS HHN 09/19/17 09:00 10/19/17 08:59 09/23/17 09:14 Docusate Sodium (Colace) 250 mg DAILY ORAL 09/19/17 09:00 10/19/17 08:59 09/23/17 08:48 Dorzolamide HCl (Trusopt) 1 drop THREE TIMES A DAY BOTH EYES 09/22/17 18:00 10/22/17 17:59 09/23/17 13:15 Guaifenesin (Robitussin) 200 mg Q4H PRN ORAL For Cough 09/19/17 16:00 10/19/17 15:59 Heparin Sodium (Porcine) (Heparin 5000 units/ml) 5,000 units EVERY 12 HOURS SUBQ 09/18/17 21:00 10/18/17 20:59 09/23/17 08:52 Hydralazine HCl (Apresoline) 10 mg Q2H PRN IV SBP > 170 09/22/17 14:15 10/22/17 14:14 Ibuprofen (Motrin) 800 mg TIDPRN PRN ORAL For Pain 09/18/17 15:15 10/18/17 15:14 09/18/17 20:30 Levofloxacin (Levaquin) 500 mg DAILY@1000 ORAL 09/23/17 10:00 09/24/17 23:59 09/23/17 10:08 Losartan Potassium (Cozaar) 50 mg EVERY 12 HOURS ORAL 09/19/17 09:00 10/19/17 08:59 09/23/17 08:49 Magnesium Hydroxide (Mom) 30 ml BIDPRN PRN ORAL Constipation 09/18/17 17:00 10/18/17 16:59 09/21/17 06:27 Methylprednisolone Sodium Succinate (Solu-MEDROL) 40 mg Q12H IVP 09/22/17 15:00 10/19/17 10:59 09/23/17 03:27 Metoprolol Succinate (Toprol XL) 50 mg Q12HR ORAL 09/22/17 21:00 10/22/17 20:59 09/22/17 20:44 Morphine Sulfate (Morphine Sulfate) 2 mg Q4H PRN IVP For Pain 09/22/17 11:30 09/29/17 11:29 09/22/17 18:29 Pantoprazole (Protonix) 40 mg DAILY ORAL 09/19/17 09:00 10/19/17 08:59 09/23/17 08:49 Zolpidem Tartrate (Ambien) 5 mg HSPRN PRN ORAL Insomnia 09/18/17 22:15 09/25/17 22:14 Noman Queen M.D. Sep 23, 2017 13:50
[2017-09-23 16:24] VITALS: BP 134/96
[2017-09-23] MEDS ORDERED: MEDROL DOSEPAK4 MG ORAL (16:28)
--- NOTE | 2017-09-23 16:28 | Consultation ---
Consult Note Assessment/Plan Dictated ELIE DENNEY Sep 23, 2017 16:28
[2017-09-23] MEDS ORDERED: PREDNISOLO15 MG/5 M1 ORAL (16:29)
[2017-09-23] MEDS ORDERED: Bactrim DS (160mg/800mg) tab ORAL SCH (17:00)
--- NOTE | 2017-09-23 19:15 | Progress Note ---
DATE: 09/23/2017 PULMONARY PROGRESS NOTE SUBJECTIVE: His respiration is better. He is at baseline and oxygenating well. OBJECTIVE: VITAL SIGNS: Temp of 97.2, pulse of 60, respiratory rate of 20, blood pressure 140/90, and O2 sats 99% on 2 liters nasal cannula. LUNGS: Markedly diminished breath sounds bilaterally . Very few crackles. No wheezing. CARDIOVASCULAR: Regular rate. ABDOMEN: Soft. Bowel sounds present. EXTREMITIES: No edema. NEUROLOGIC: Alert. Follows command. Cranial nerves II through XII grossly intact. LABORATORY DATA: WBC 5.9, hemoglobin 13.8, and platelet count of 204,000. Chemistry, sodium 141, potassium 4.1, chloride 105, bicarbonate 31, BUN 20, creatinine 1, and glucose of 101. IMPRESSION: 1. Chronic obstructive pulmonary disease exacerbation. He is better on steroid and inhalers. 2. The patient did have a CT scan done today, which did not show any acute pulmonary process. He does have some compression fracture of T1-T2 and multiple hepatic cysts and heart is mildly enlarged. No effusion. No hilar adenopathy. Thyroid is somewhat prominent. He does have posterior dependent atelectasis changes. No infiltrate. He does have posterior dependent infection of the lungs bilaterally. Overall, his chronic obstructive pulmonary disease is better and the patient is going to be discharged. A lower extremity Doppler has been also negative for DVT. His degenerative joint disease is stable. Depression is stable. Acute bronchitis improved. Prostate cancer is better. Constipation is stable. Hypertension is stable. The patient is going to be on home oxygen and it was recommended for him to use this because he cannot bring his secretions out. Discharge on home O2 and he has been on chronic steroid, prednisone 10 mg daily, which he is going to continue. My information and my office address, I gave it to him and my phone number. If he wishes, he can follow up at my office. Daryn Greenberg M.D. DR: DINA JOB#: [id number] CC:
--- NOTE | 2017-09-25 12:03 | Discharge Summary ---
Discharge Summary Hospital Course Date of Admission Sep 18, 2017 at 08:36 Date of Discharge Sep 23, 2017 at 18:25 Admitting Diagnosis COPD HPI Milton Veras is a 76 year old male who was admitted on Sep 18, 2017 at 08:36 for Chronic Obstructive Pulmonary Disease Hospital Course dc summary #[id number] Discharge Medications Continued Medications: Albuterol Sulfate* (Albuterol Sulfate Hhn*) 2.5 Mg/3 Ml Vial.neb 2.5 MG HHN Q4H PRN for Shortness of Breath, #25 VIAL Amlodipine Besylate* (Amlodipine Besylate*) 10 Mg Tablet 10 MG ORAL DAILY, TAB Codeine/Promethazine Hcl* (Promethazine-Codeine Syrup*) 118 Ml Syrup 10 ML ORAL QID PRN for For Cough, ML 0 Refills Desloratadine (Clarinex) 5 Mg Tablet 5 MG ORAL DAILY, #30 TAB 0 Refills Esomeprazole Magnesium (Nexium) 40 Mg Suspdr.pkt 40 MG ORAL DAILY, PKT Fluticasone/Salmeterol (Advair 500-50 Diskus) 1 Each Blst.w.dev 1 PUFF INH DAILY, EA Guaifenesin/Pseudoephedrne Hcl (Mucinex D Er 600-60 Mg Tablet) 1 Each Tab.er.12h 1 EACH PO DAILY, TAB Ibuprofen* (Motrin*) 800 Mg Tablet 800 MG ORAL THREE TIMES A DAY, #30 TAB 0 Refills Ipratropium/Albuterol Sulfate (Combivent Respimat Inhal [place]) 4 Gm Mist.inhal 18 GM IH THREE TIMES A DAY, GM Levofloxacin* (Levaquin*) 500 Mg Tablet 500 MG ORAL DAILY for 3 Days, TAB Losartan Potassium* (Cozaar*) 50 Mg Tablet 50 MG ORAL Q12HR, TAB Metoprolol Succinate* (Toprol Xl*) 50 Mg Tab.er.24h 50 MG ORAL Q12HR, TAB Mometasone Furoate (Nasonex) 17 Gm [place].pump 1 SPRAYS NASAL DAILY, GM 0 Refills Prednisolone* (Prelone*) 15 Mg/5 Ml Solution 10 MG ORAL DAILY for prednisone, ML Theophylline (Theodur*) 100 Mg Tab.er.12h 200 MG ORAL TWICE A DAY, #30 TAB 0 Refills Tiotropium Taylor* (Spiriva*) 18 Mcg Cap.w.dev 1 PUFF INH DAILY, EA Discontinued Medications: Azithromycin* (Zithromax*) 250 Mg Tablet 250 MG ORAL DAILY, #6 TAB 0 Refills Take two tables once daily for 1 day, then one tablet once daily for 4 days. Methylprednisolone (Methylprednisolone*) 4 Mg Tab.ds.pk 10 MG ORAL DAILY, #1 EA 0 Refills Unable to Obtain Medications (Unable To Obtain Meds) 1 Ea Ea Valsartan (Diovan) 320 Mg Tablet 320 MG ORAL DAILY, TAB Discharge Condition Upon Discharge: stable Discharge Disposition Patient was discharged to Home Discharge Diagnoses: Discharge Instructions Discharge Instructions Special Instructions I have been assigned to complete a D/C Summary on this account. I was not involved in the patient management Erin Agarwal NP (Vanchtein) Sep 25, 2017 12:03
--- NOTE | 2017-09-25 22:00 | Discharge Summary 2 SIG ---
DATE OF ADMISSION: 09/18/2017 DATE OF DISCHARGE: 09/23/2017 REASON FOR ADMISSION: 76 years old male with history of COPD, home oxygen dependent, hypertension, psychiatric disorder, and prostate cancer, presented to emergency room with complaint of shortness of breath and cough for several days. The patient reported productive cough with yellowish phlegm. The patient was seen in the emergency department few days ago with a negative chest x-ray and at that time received breathing treatment. Patient felt better and was discharged. Upon current presentation to ED, he felt that his symptoms returned. He initially denied chest pain, fever, or chills. He complained of back and knee pain, history of chronic pain. The patient was afebrile. Vital signs were stable. Placed on supplemental oxygen via nasal cannula 2 liters, saturation 98%. Hand held nebulizing treatment with bronchodilators along with loading dose of steroids was initiated. The patient was admitted with acute COPD exacerbation. HOSPITAL COURSE: The patient was admitted. Pulmonology consult was requested. The patient was on supplemental oxygen. Pulmonary toilet provided as needed. The patient was started on IV steroids, which were gradually tapered. Antitussives provided as needed. Chest x-ray revealed no acute cardiopulmonary issue, but revealed bibasilar atelectasis and cardiomegaly. Housing Officer consult was requested since the patient complained of mild chest pain. Troponin x2 were negative. Echocardiogram revealed preserved ejection fracture of 60% and right ventricular systolic pressure of 42 consistent with mild pulmonary hypertension, likely secondary to COPD, no wall motion abnormality. Housing Officer concluded that the patient had atypical chest pain. Venous duplex of bilateral lower extremities was negative. Sputum culture grew MRSA. Blood culture were negative. Influenza screen test was negative. Infectious Disease followed. The patient was on IV antibiotics while in the hospital and will be continued for additional three days on oral antibiotic upon discharge. CT of the chest revealed no acute pulmonary issues. The patient was noted to have elevated blood pressure consistent with hypertensive urgency. Blood pressure was managed with angiotensin receptor sidra as well as calcium channel sidra and hydralazine p.r.n. Housing Officer recommended avoid clonidine due to the mild bradycardia. Prior to discharge, vital signs stable, blood pressure - 134/96. Database Engineer recommended to use oxygen ,and nebulizing treatment at home, antitussives as needed, theophylline , and complete antibiotic. The patient on chronic prednisone, continue as recommended by polls or surveys interviewer. The patient was advised on compliance with medication regimen. The patient was provided with a polls or surveys interviewer office number and address in order to followup as outpatient. Hemoglobin and hematocrit remained stable at the baseline, no trend down. Pain management was provided as needed. Bowel regimen was instituted. The patient was stable for discharge. FINAL DIAGNOSES: 1. Acute bronchitis. 2. Chronic obstructive pulmonary disease exacerbation. 3. Hypertensive urgency. 4. Prostate carcinoma. 5. Constipation. 6. Depression and anxiety. 7. Degenerative joint disease DISCHARGE MEDICATIONS: See medication reconciliation list. DISCHARGE INSTRUCTIONS: The patient to follow up with the primary medical doctor next week. The patient need to further follow up for prostate CA management. Hesham Arreaga M.D. I have been assigned to dictate discharge summary on this account and I was not involved in the patient's management. Erin PerezJames J. Peters Va Medical Centercira NMilton DR: Jeanmarie JOB#: [id number] CC: SAMEERA
== END 2017-09-23 18:25 | disposition home or self-care (01) | DRG 191 ==
LOC: EMR 08:14 → 2E 08:36 → EDBEDREQ 12:13
DX: J44.1 Chronic obstructive pulmonary disease with (acute) exacerbation (principal); E46 Unspecified protein-calorie malnutrition; F41.8 Other specified anxiety disorders; J20.9 Acute bronchitis, unspecified; Z85.46 Personal history of malignant neoplasm of prostate; I16.0 Hypertensive urgency; K59.00 Constipation, unspecified; J44.0 Chronic obstructive pulmonary disease with (acute) lower respiratory infection; M47.896 Other spondylosis, lumbar region; Z57.5 Occupational exposure to toxic agents in other industries
CPT/HCPCS: 36415; 71010; 71250; 80048; 80053; 81003; 82550; 82553; 83605; 83880; 84153; 84439; 84443; 84484; 85025; 86710; 87040; 87070; 87081; 87181; 87205; 93005; 93306; 93970; 94640; 94664; 94760; 99284; 99285; J7620

== ENCOUNTER 2018-01-08 03:00 | Inpatient (IN) | payer MEDICARE, OTHER ==
[2018-01-08] VITALS (7 sets, daily range): BP systolic 109–140; BP diastolic 69–87
[~2018-01-08] VITALS: Ht 188 cm; Wt 102.1 kg
[~2018-01-08 03:00] MED LIST changes: +COZAAR50 MG ORAL; +LEVAQUIN500 MG ORAL; +MEDROL DOSEPAK4 MG ORAL; +PREDNISOLO15 MG/5 M1 ORAL; +TOPROL XL50 MG ORAL; +UNOBMED
[2018-01-08] MEDS ORDERED: Albuterol ud Inhalation HHN ONE (03:15)
[2018-01-08] MEDS ORDERED: Ipratropium 0.02% Inh Soln 2.5ml UD HHN ONE (03:15)
[2018-01-08 03:47] LABS: HEMATOCRIT 36.3 % (42.0-52.0); HEMOGLOBIN 12.4 G/DL (14.2-18.0); MEAN CORPUSCULAR VOLUME 93 FL (80-99); RED BLOOD COUNT 3.92 M/UL (4.70-6.10); WHITE BLOOD COUNT 5.8 K/UL (4.8-10.8)
[2018-01-08 03:48] LABS: PLATELET COUNT 173 K/UL (150-450)
[2018-01-08] MEDS ORDERED: ADVAIR 500-501 EACH INH (03:57)
[2018-01-08] MEDS ORDERED: NASONEX17 GM NASAL (03:57)
[2018-01-08] MEDS ORDERED: CLARINEX5 MG ORAL (03:57)
[2018-01-08] MEDS ORDERED: COMBIVENT RESPIM4 GM IH (03:57)
[2018-01-08 03:59] LABS: ANION GAP 6 mmol/L (5-15); BLOOD UREA NITROGEN 13 mg/dL (7-18); CALCIUM 8.5 MG/DL (8.5-10.1); CARBON DIOXIDE 29 MMOL/L (21-32); CHLORIDE 103 MMOL/L (98-107); CREATININE 1.1 MG/DL (0.55-1.30); POTASSIUM 3.7 MMOL/L (3.5-5.1); SODIUM 138 MMOL/L (136-145)
--- NOTE | 2018-01-08 04:05 | Emergency Room Report ---
History of Present Illness General Chief Complaint: Chest Pain Source: Patient, Medical Record Present Illness HPI 77-year-old male presents ED complaining of chest pain. Started approximately 45 minutes prior to arrival. Sudden onset. Left-sided, pressure-like, 8 out of 10, radiating to left shoulder. Patient was given nitroglycerin 2 and aspirin in the field. States chest pain has improved. Also complaining of shortness of breath. History of COPD. Denies fevers or chills. Denies cough. Denies sick contacts or recent travel. No other aggravating relieving factors. Denies any other associated symptoms Allergies: Coded Allergies: NO KNOWN DRUG ALLERGIES (Verified Allergy, Unknown, 09/18/17) Patient History Past Medical History: asthma, COPD, psych hx Social History: Denies: smoking, alcohol use, drug use Immunizations: UTD Reviewed Nursing Documentation: PMH: Agreed, PSxH: Agreed Nursing Documentation-PMH Hx Cardiac Problems: Yes - ACS, anemia Hx Hypertension: Yes Hx Pacemaker: No Hx Asthma: Yes Hx COPD: Yes Hx Diabetes: No Hx Cancer: Yes - Prostate Hx Gastrointestinal Problems: Yes - intestinal pulmonary Hx Dialysis: No History Of Psychiatric Problem: Yes - Depression, anxiety Hx Cerebrovascular Accident: No Hx Seizures: No Review of Systems All Other Systems: negative except mentioned in HPI Physical Exam Vital Signs Date Time Temp Pulse Resp B/P (MAP) Pulse Ox O2 Delivery O2 Flow Rate FiO2 01/08/18 03:04 98.1 109 13 109/80 99 Room Air 98.1 01/08/18 03:41 2.0 28 Sp02 EP Interpretation: reviewed, normal General Appearance: no apparent distress, alert, GCS 15, non-toxic Head: normocephalic, atraumatic Eyes: bilateral eye normal inspection, bilateral eye PERRL ENT: hearing grossly normal, normal pharynx, no angioedema, normal voice Neck: full range of motion, supple/symm/no masses Respiratory: chest non-tender, lungs clear, normal breath sounds, speaking full sentences Cardiovascular #1: regular rate, rhythm, no edema Cardiovascular #2: 2+ carotid (R), 2+ carotid (L), 2+ radial (R), 2+ radial (L) , 2+ dorsalis pedis (R), 2+ dorsalis pedis (L) Gastrointestinal: normal bowel sounds, non tender, soft, non-distended, no guarding, no rebound Rectal: deferred Genitourinary: normal inspection, no CVA tenderness Musculoskeletal: back normal, gait/station normal, normal range of motion, non- tender Neurologic: alert, oriented x3, responsive, motor strength/tone normal, sensory intact, speech normal Psychiatric: judgement/insight normal, memory normal, mood/affect normal, no suicidal/homicidal ideation Reflexes: 3+ bicep (R), 3+ bicep (L), 3+ tricep (R), 3+ tricep (L), 3+ knee (R) , 3+ knee (L) Skin: normal color, no rash, warm/dry, well hydrated Lymphatic: no adenopathy Medical Decision Making Diagnostic Impression: Primary Impression: ACS (acute coronary syndrome) ER Course Hospital Course 77-year-old male presents ED complaining of left-sided chest pain, shortness of breath. improved after nitro by ems Differential diagnoses include: LA/unstable angina, contusion, muscle strain, PTX, rib fracture Clinical course Patient placed on stretcher. on clinical research monitor. After initial history and physical I ordered labs, EKG, chest x-ray, nebs labs reviewed- no leukocytosis, hb/hct stable, electrolytes ok, trop negative EKG - NSR, no acute ischemic changes interpreted by me Chest x-ray- no acute process Case discussed with Dr. Arreaga and he agreed to accept the patient to his service for further care and support I. I feel this is a highly complex case requiring extensive working including EKG/Rhythm strip, Xray/CT/US, Blood/urine lab work, repeat exams while in ED, and administration of strong opiates/narcotics for pain control, admission to hospital or close patient follow up. Diagnosis - ACS admitted to telemetry in serious condition Labs Test 01/08/18 03:20 White Blood Count 5.8 K/UL (4.8-10.8) Red Blood Count 3.92 M/UL (4.70-6.10) Hemoglobin 12.4 G/DL (14.2-18.0) Hematocrit 36.3 % (42.0-52.0) Mean Corpuscular Volume 93 FL (80-99) Mean Corpuscular Hemoglobin 31.6 PG (27.0-31.0) Mean Corpuscular Hemoglobin Concent 34.1 G/DL (32.0-36.0) Red Cell Distribution Width 14.0 % (11.6-14.8) Platelet Count 173 K/UL (150-450) Mean Platelet Volume 9.4 FL (6.5-10.1) Neutrophils (%) (Auto) 2.8 % (45.0-75.0) Lymphocytes (%) (Auto) 2.3 % (20.0-45.0) Monocytes (%) (Auto) 0.6 % (1.0-10.0) Eosinophils (%) (Auto) 0.0 % (0.0-3.0) Basophils (%) (Auto) 0.1 % (0.0-2.0) Sodium Level 138 MMOL/L (136-145) Potassium Level 3.7 MMOL/L (3.5-5.1) Chloride Level 103 MMOL/L (98-107) Carbon Dioxide Level 29 MMOL/L (21-32) Anion Gap 6 mmol/L (5-15) Blood Urea Nitrogen 13 mg/dL (7-18) Creatinine 1.1 MG/DL (0.55-1.30) Estimat Glomerular Filtration Rate mL/min (>60) Glucose Level 100 MG/DL (74-106) Lactic Acid Level 1.10 mmol/L (0.66-2.22) Calcium Level 8.5 MG/DL (8.5-10.1) Total Bilirubin 0.7 MG/DL (0.2-1.0) Aspartate Amino Transf (AST/SGOT) 12 U/L (15-37) Alanine Aminotransferase (ALT/SGPT) 27 U/L (12-78) Alkaline Phosphatase 73 U/L (46-116) Total Creatine Kinase 105 U/L (26-308) Creatine Kinase MB 1.0 NG/ML (0.0-3.6) Creatine Kinase MB Relative Index 0.9 Troponin I 0.005 ng/mL (0.000-0.056) Pro-B-Type Natriuretic Peptide 491 pg/mL (0-125) Total Protein 7.4 G/DL (6.4-8.2) Albumin 2.8 G/DL (3.4-5.0) Globulin 4.6 g/dL Albumin/Globulin Ratio 0.6 (1.0-2.7) EKG Diagnostic Results Rate: normal Rhythm: NSR ST Segments: no acute changes ASA given to the pt in ED: No - given by ems Rhythm Strip Diag. Results EP Interpretation: yes Rhythm: NSR, no PVC's, no ectopy Chest X-Ray Diagnostic Results Chest X-Ray Diagnostic Results : Chest X-Ray Ordered: Yes # of Views/Limited/Complete: 1 View Indication: Chest Pain EP Interpretation: Yes Interpretation: no consolidation, no effusion, no pneumothorax Impression: No acute disease Electronically Signed by: Electronically signed by Dirk Palma MD Last Vital Signs Date Time Temp Pulse Resp B/P (MAP) Pulse Ox O2 Delivery O2 Flow Rate FiO2 01/08/18 03:48 87 23 Nasal Cannula 2.0 28 01/08/18 03:41 100 01/08/18 03:20 98.1 109/80 98.1 Status: improved Disposition: ADMITTED INPATIENT Condition: Serious Referrals: NOT CHOSEN FELICIA/,REFERRING (PCP) DIRK PALMA M.D. Jan 08, 2018 04:05
[2018-01-08 04:12] LABS: ALANINE AMINOTRANSFERASE 27 U/L (12-78); ALBUMIN 2.8 G/DL (3.4-5.0); ALBUMIN/GLOBULIN RATIO 0.6 (1.0-2.7); ALKALINE PHOSPHATASE 73 U/L (46-116); ASPARTATE AMINO TRANSFERASE 12 U/L (15-37); BILIRUBIN,TOTAL 0.7 MG/DL (0.2-1.0); CREATINE KINASE 105 U/L (26-308)
[2018-01-08 04:54] LABS: LYMPHOCYTES % (AUTO) 39.1 % (20.0-45.0); MONOCYTES % (AUTO) 9.9 % (1.0-10.0); NEUTROPHILS % (AUTO) 48.2 % (45.0-75.0)
[2018-01-08 04:55] LABS: BASOPHILS % (AUTO) 2.2 % (0.0-2.0); EOSINOPHILS % (AUTO) 0.6 % (0.0-3.0)
--- NOTE | 2018-01-08 12:06 | Diagnostic Imaging Report ---
Indication: Chest pain Technique: One view of the chest Comparison: [id number] Findings: The heart is enlarged. Atelectasis and possible mild congestive changes are seen at both lung bases. No pleural spaces are probably clear. The aorta is tortuous and ectatic Impression: Cardiomegaly Bibasilar atelectasis and possible mild congestive changes
[2018-01-08] MEDS: HYDROmorphone 1mg/ml Carpuject IVP PRN ×2 (12:18→22:22)
[2018-01-08] MEDS ORDERED: Promethazine/Codeine 5ml UD ORAL PRN (12:30)
[2018-01-08] MEDS ORDERED: Albuterol ud Inhalation HHN SCH (15:00)
--- NOTE | 2018-01-08 15:47 | Cardiac Electrophysiology PN ---
Subjective Subjective Cardiology consult dictated [id number] Objective Last 24 Hour Vital Signs Date Time Temp Pulse Resp B/P (MAP) Pulse Ox O2 Delivery O2 Flow Rate FiO2 01/08/18 11:50 66 01/08/18 10:04 99 Nasal Cannula 2.0 28 01/08/18 10:04 Nasal Cannula 2.0 28 01/08/18 08:00 97.6 64 20 126/69 100 Nasal Cannula 2.0 97.6 01/08/18 07:58 119 01/08/18 06:30 98.1 62 17 140/77 100 Nasal Cannula 2.0 28 98.1 01/08/18 06:24 62 17 140/77 100 Nasal Cannula 2.0 01/08/18 04:27 83 19 131/84 100 Nasal Cannula 2.0 01/08/18 04:27 87 23 100 Nasal Cannula 2.0 28 01/08/18 04:26 28 01/08/18 03:48 87 23 Nasal Cannula 2.0 28 01/08/18 03:41 97 23 100 Nasal Cannula 2.0 28 01/08/18 03:20 98.1 109 13 109/80 99 Room Air 98.1 01/08/18 03:20 109 13 Room Air 01/08/18 03:04 98.1 109 13 109/80 99 Room Air 98.1 Intake and Output 01/07/18 01/08/18 19:00 07:00 Output Total 1200 ml Balance -1200 ml Output Urine Total 1200 ml # Voids 3 Laboratory Tests Test 01/08/18 03:20 01/08/18 11:45 White Blood Count 5.8 K/UL (4.8-10.8) Red Blood Count 3.92 M/UL (4.70-6.10) L Hemoglobin 12.4 G/DL (14.2-18.0) L Hematocrit 36.3 % (42.0-52.0) L Mean Corpuscular Volume 93 FL (80-99) Mean Corpuscular Hemoglobin 31.6 PG (27.0-31.0) H Mean Corpuscular Hemoglobin Concent 34.1 G/DL (32.0-36.0) Red Cell Distribution Width 14.0 % (11.6-14.8) Platelet Count 173 K/UL (150-450) Mean Platelet Volume 9.4 FL (6.5-10.1) Neutrophils (%) (Auto) 48.2 % (45.0-75.0) Lymphocytes (%) (Auto) 39.1 % (20.0-45.0) Monocytes (%) (Auto) 9.9 % (1.0-10.0) Eosinophils (%) (Auto) 0.6 % (0.0-3.0) Basophils (%) (Auto) 2.2 % (0.0-2.0) H Sodium Level 138 MMOL/L (136-145) Potassium Level 3.7 MMOL/L (3.5-5.1) Chloride Level 103 MMOL/L (98-107) Carbon Dioxide Level 29 MMOL/L (21-32) Anion Gap 6 mmol/L (5-15) Blood Urea Nitrogen 13 mg/dL (7-18) Creatinine 1.1 MG/DL (0.55-1.30) Estimat Glomerular Filtration Rate mL/min (>60) Glucose Level 100 MG/DL (74-106) Lactic Acid Level 1.10 mmol/L (0.66-2.22) Calcium Level 8.5 MG/DL (8.5-10.1) Total Bilirubin 0.7 MG/DL (0.2-1.0) Aspartate Amino Transf (AST/SGOT) 12 U/L (15-37) L Alanine Aminotransferase (ALT/SGPT) 27 U/L (12-78) Alkaline Phosphatase 73 U/L (46-116) Total Creatine Kinase 105 U/L (26-308) Creatine Kinase MB 1.0 NG/ML (0.0-3.6) Creatine Kinase MB Relative Index 0.9 Troponin I 0.005 ng/mL (0.000-0.056) 0.016 ng/mL (0.000-0.056) Pro-B-Type Natriuretic Peptide 491 pg/mL (0-125) H Total Protein 7.4 G/DL (6.4-8.2) Albumin 2.8 G/DL (3.4-5.0) L Globulin 4.6 g/dL Albumin/Globulin Ratio 0.6 (1.0-2.7) L TARA OLIVERA Jan 08, 2018 15:47
[2018-01-08] MEDS ORDERED: Lexiscan 0.4mg/5ml syringe IV ONE (16:00)
--- NOTE | 2018-01-08 16:46 | Cardiology Report ---
APPROVED REPORT EKG Measurement Heart [id number] Normal sinus rhythm Right superior axis deviation Pulmonary disease pattern Incomplete right bundle branch block Right ventricular hypertrophy Nonspecific T wave abnormality Abnormal ECG
[2018-01-08] MEDS: Advair 250/50 Inhaler - 14 dose INH SCH (18:00)
[2018-01-08] MEDS ORDERED: Albuterol/Ipratropium 3ml neb HHN PRN (20:30)
[2018-01-08] MEDS: Losartan 50mg tab ORAL SCH (21:00)
[2018-01-08] MEDS: Metoprolol Succinate XL 50mg tab ORAL SCH (21:00)
[2018-01-08] MEDS: Albuterol/Ipratropium 3ml neb HHN SCH (22:59)
--- NOTE | 2018-01-08 23:05 | History and Physical ---
History of Present Illness General Date patient seen: Jan 08, 2018 Reason for Hospitalization: Chest Pain Present Illness HPI 77-year-old male with a history fo COPD presented to the ED complaining of chest pain. Started approximately 45 minutes prior to arrival. Sudden onset. Left-sided, pressure-like, 8 out of 10, radiating to left shoulder. Patient was given nitroglycerin 2 and aspirin in the field. States chest pain has improved. Also complaining of shortness of breath. Denies fevers or chills. Denies cough. Denies sick contacts or recent travel. No other aggravating relieving factors. Denies any other associated symptoms. He as admitted for further care. Allergies: Coded Allergies: NO KNOWN DRUG ALLERGIES (Verified Allergy, Unknown, 09/18/17) Medication History Scheduled Amlodipine Besylate* (Amlodipine Besylate*), 10 MG ORAL DAILY, (Reported) Desloratadine (Clarinex), 5 MG ORAL DAILY, (Reported) Desloratadine (Clarinex), 5 MG ORAL DAILY, (Reported) Esomeprazole Magnesium (Nexium), 40 MG ORAL DAILY, (Reported) Fluticasone/Salmeterol (Advair 500-50 Diskus), 1 PUFF INH DAILY, (Reported) Fluticasone/Salmeterol (Advair 500-50 Diskus), 1 PUFF INH EVERY 12 HOURS, ( Reported) Guaifenesin/Pseudoephedrne Hcl (Mucinex D Er 600-60 Mg Tablet), 1 EACH PO DAILY, (Reported) Ibuprofen* (Motrin*), 800 MG ORAL THREE TIMES A DAY Ipratropium/Albuterol Sulfate (Combivent Respimat Inhal [place]), 18 GM IH THREE TIMES A DAY, (Reported) Levofloxacin* (Levaquin*), 500 MG ORAL DAILY, (Reported) Losartan Potassium* (Cozaar*), 50 MG ORAL Q12HR, (Reported) Metoprolol Succinate* (Toprol Xl*), 50 MG ORAL Q12HR, (Reported) Mometasone Furoate (Nasonex), 1 SPRAYS NASAL DAILY, (Reported) Mometasone Furoate (Nasonex), 2 SPRAYS NASAL DAILY, (Reported) Prednisolone* (Prelone*), 10 MG ORAL DAILY, (Reported) Theophylline (Theodur*), 200 MG ORAL TWICE A DAY, (Reported) Tiotropium [place]* (Spiriva*), 1 PUFF INH DAILY, (Reported) Scheduled PRN Albuterol Sulfate* (Albuterol Sulfate Hhn*), 2.5 MG HHN Q4H PRN for Shortness of Breath Codeine/Promethazine Hcl* (Promethazine-Codeine Syrup*), 10 ML ORAL QID PRN for For Cough, (Reported) Miscellaneous Medications Ipratropium/Albuterol Sulfate (Combivent Respimat Inhal [place]), 4 GM IH, ( Reported) Patient History History Provided By: Patient Healthcare decision maker Resuscitation status Advanced Directive on File Past Medical/Surgical History Past Medical/Surgical History: (1) COPD (chronic obstructive pulmonary disease) (2) H/O prostate cancer Review of Systems All Other Systems: negative except mentioned in HPI Physical Exam General Appearance: WD/WN, no apparent distress HEENT: normocephalic, atraumatic Respiratory/Chest: decreased breath sounds Cardiovascular/Chest: normal rate, regular rhythm Abdomen: non tender, soft Last 24 Hour Vital Signs Date Time Temp Pulse Resp B/P (MAP) Pulse Ox O2 Delivery O2 Flow Rate FiO2 01/08/18 22:59 56 22 99 Nasal Cannula 2.0 28 01/08/18 21:00 63 131/81 01/08/18 21:00 131/81 01/08/18 20:28 Nasal Cannula 01/08/18 20:28 Nasal Cannula 01/08/18 19:51 Nasal Cannula 2.0 28 01/08/18 19:48 99 Nasal Cannula 2.0 28 01/08/18 16:46 66 24 99 Nasal Cannula 2.0 28 01/08/18 16:33 53 24 Nasal Cannula 2.0 28 01/08/18 16:30 53 24 96 Nasal Cannula 2.0 28 01/08/18 16:00 97.7 52 20 131/78 100 Nasal Cannula 2.0 97.7 01/08/18 15:32 71 01/08/18 12:00 97.2 66 20 127/87 100 Nasal Cannula 2.0 97.2 01/08/18 11:50 66 01/08/18 10:04 99 Nasal Cannula 2.0 28 01/08/18 10:04 Nasal Cannula 2.0 28 3/21/18 08:00 97.6 64 20 126/69 100 Nasal Cannula 2.0 97.6 01/08/18 07:58 119 01/08/18 06:30 98.1 62 17 140/77 100 Nasal Cannula 2.0 28 98.1 01/08/18 06:24 62 17 140/77 100 Nasal Cannula 2.0 01/08/18 04:27 83 19 131/84 100 Nasal Cannula 2.0 01/08/18 04:27 87 23 100 Nasal Cannula 2.0 28 01/08/18 04:26 28 01/08/18 03:48 87 23 Nasal Cannula 2.0 28 01/08/18 03:41 97 23 100 Nasal Cannula 2.0 28 01/08/18 03:20 98.1 109 13 109/80 99 Room Air 98.1 01/08/18 03:20 109 13 Room Air 01/08/18 03:04 98.1 109 13 109/80 99 Room Air 98.1 Intake and Output 01/07/18 01/08/18 19:00 07:00 Output Total 1200 ml Balance -1200 ml Output Urine Total 1200 ml # Voids 3 Laboratory Tests Test 01/08/18 03:20 01/08/18 11:45 White Blood Count 5.8 K/UL (4.8-10.8) Red Blood Count 3.92 M/UL (4.70-6.10) L Hemoglobin 12.4 G/DL (14.2-18.0) L Hematocrit 36.3 % (42.0-52.0) L Mean Corpuscular Volume 93 FL (80-99) Mean Corpuscular Hemoglobin 31.6 PG (27.0-31.0) H Mean Corpuscular Hemoglobin Concent 34.1 G/DL (32.0-36.0) Red Cell Distribution Width 14.0 % (11.6-14.8) Platelet Count 173 K/UL (150-450) Mean Platelet Volume 9.4 FL (6.5-10.1) Neutrophils (%) (Auto) 48.2 % (45.0-75.0) Lymphocytes (%) (Auto) 39.1 % (20.0-45.0) Monocytes (%) (Auto) 9.9 % (1.0-10.0) Eosinophils (%) (Auto) 0.6 % (0.0-3.0) Basophils (%) (Auto) 2.2 % (0.0-2.0) H Sodium Level 138 MMOL/L (136-145) Potassium Level 3.7 MMOL/L (3.5-5.1) Chloride Level 103 MMOL/L (98-107) Carbon Dioxide Level 29 MMOL/L (21-32) Anion Gap 6 mmol/L (5-15) Blood Urea Nitrogen 13 mg/dL (7-18) Creatinine 1.1 MG/DL (0.55-1.30) Estimat Glomerular Filtration Rate mL/min (>60) Glucose Level 100 MG/DL (74-106) Lactic Acid Level 1.10 mmol/L (0.66-2.22) Calcium Level 8.5 MG/DL (8.5-10.1) Total Bilirubin 0.7 MG/DL (0.2-1.0) Aspartate Amino Transf (AST/SGOT) 12 U/L (15-37) L Alanine Aminotransferase (ALT/SGPT) 27 U/L (12-78) Alkaline Phosphatase 73 U/L (46-116) Total Creatine Kinase 105 U/L (26-308) Creatine Kinase MB 1.0 NG/ML (0.0-3.6) Creatine Kinase MB Relative Index 0.9 Troponin I 0.005 ng/mL (0.000-0.056) 0.016 ng/mL (0.000-0.056) Pro-B-Type Natriuretic Peptide 491 pg/mL (0-125) H Total Protein 7.4 G/DL (6.4-8.2) Albumin 2.8 G/DL (3.4-5.0) L Globulin 4.6 g/dL Albumin/Globulin Ratio 0.6 (1.0-2.7) L Height (Feet): 6 Height (Inches): 2.00 Weight (Pounds): 225 Medications Current Medications Medications (Trade) Dose Ordered Sig/Gilbert Route PRN Reason Start Time Stop Time Status Last Admin Dose Admin Albuterol/ Ipratropium (Albuterol/ Ipratropium) 3 ml Q4H PRN HHN Shortness of Breath 01/08/18 20:30 01/13/18 20:29 Albuterol/ Ipratropium (Albuterol/ Ipratropium) 3 ml Q4HRT HHN 01/08/18 23:00 01/13/18 22:59 01/08/18 22:59 Amlodipine Besylate (Norvasc) 10 mg DAILY ORAL 01/09/18 09:00 02/08/18 08:59 Guaifenesin (Mucinex ER) 600 mg DAILY ORAL 01/09/18 09:00 02/08/18 08:59 Hydromorphone HCl (Dilaudid) 1 mg Q6H PRN IVP For Pain 01/08/18 12:30 01/15/18 12:29 01/08/18 22:22 Ibuprofen (Motrin) 800 mg TID ORAL 01/08/18 13:00 02/07/18 12:59 01/08/18 18:13 Losartan Potassium (Cozaar) 50 mg EVERY 12 HOURS ORAL 01/08/18 21:00 02/07/18 20:59 01/08/18 21:00 Metoprolol Succinate (Toprol XL) 50 mg Q12HR ORAL 01/08/18 21:00 02/07/18 20:59 01/08/18 21:00 Pantoprazole (Protonix) 40 mg DAILY PRN ORAL HEART BURN 01/08/18 12:45 02/07/18 12:44 Promethazine HCl/ Codeine (Phenergan with Codeine) 10 ml QID PRN ORAL For Cough 01/08/18 12:30 02/07/18 12:29 Salmeterol Xinafoate/ Fluticasone (Advair 250/50 Diskus) 1 puffs BID INH 01/08/18 18:00 02/07/18 17:59 Assessment/Plan Problem List: (1) COPD (chronic obstructive pulmonary disease) ICD Codes: J44.9 - Chronic obstructive pulmonary disease, unspecified SNOMED: 92938807 (2) ACS (acute coronary syndrome) ICD Codes: I24.9 - Acute ischemic heart disease, unspecified SNOMED: 553895588 (3) Atypical chest pain ICD Codes: R07.89 - Other chest pain SNOMED: 854108755 (4) Hypertension ICD Codes: I10 - Essential (primary) hypertension SNOMED: 84667852 (5) Anemia of chronic disease ICD Codes: D63.8 - Anemia in other chronic diseases classified elsewhere SNOMED: 745844768 Assessment/Plan pulmonary and cardio eval. Resume home meds. neb breathing tx. consider steroids. DVT ppx. Will follow. LEYLA ARRIAZA Jan 08, 2018 23:04
--- NOTE | 2018-01-08 23:46 | Consultation ---
DATE OF CONSULTATION: 01/08/2018 CARDIOLOGY CONSULTATION REASON FOR CONSULTATION: Management of congestive heart failure and shortness of breath. HISTORY OF PRESENT ILLNESS: The patient is a 77-year-old gentleman that I am quite familiar with from his previous admission at [facility]. The patient has history of hypertension and COPD as well as normal left ventricular systolic function as well as history of depression and anxiety as well as bradycardia, who was admitted to the hospital for chest pain. The pain was left-sided that was 8/10 with radiation to the left shoulder. The patient received aspirin and nitroglycerin in the field and chest pain improved. The patient is also complaining of shortness of breath, but also has history of COPD. The patient was admitted and a Cardiology consultation was obtained for further evaluation and management. PAST MEDICAL HISTORY: 1. Hypertension. 2. Asthma. 3. COPD. 4. History of prostate cancer. 5. Depression. 6. Anxiety. FAMILY HISTORY: Noncontributory. SOCIAL HISTORY: Denies smoke or drinking alcohol. REVIEW OF SYSTEMS: Thoroughly performed and was negative other than what was mentioned in the history of present illness. PHYSICAL EXAMINATION: VITAL SIGNS: Blood pressure 109/80, pulse is 109, respirations , and temperature is 98.1. HEAD AND NECK: Showed no JVD. LUNGS: Coarse rhonchi. CARDIOVASCULAR: Shows regular S1 and S2 with no gallop or murmur. ABDOMEN: Soft. EXTREMITIES: No pitting edema. LABORATORY DATA: Labs show white count 5.8, hemoglobin 12.4, hematocrit of 36.3, and a platelet count of 173,000. Sodium 138, potassium 3.7, BUN of 13, and creatinine 1.1. Glucose of 100. Troponin is negative x2. ASSESSMENT AND PLAN: 1. Chest pain. The patient was ruled out for myocardial infarction. We will schedule the patient for echocardiogram and nuclear stress test for further evaluation and management. It is of note that the patient's EKG also shows sinus rhythm with incomplete right bundle-branch block and left axis deviation, but no acute ST-T wave abnormalities. 2. Hypertension. Continue Norvasc 10 mg daily and losartan 50 mg b.i.d. The patient is also on metoprolol 50 mg b.i.d. We will watch the patient on telemetry for bradycardia. 3. Chronic obstructive pulmonary disease. On albuterol and Mucinex. 4. Normal left ventricular systolic function from most recent echo. Thank you very much, Dr. Arreaga, for allowing me to participate in the care of this patient. Please do not hesitate to contact me for any questions regarding my evaluation. Aron Holguin M.D. DR: PAGE JOB#: [id number] CC:
[2018-01-09] VITALS: BP 146/92
[2018-01-09] MEDS: Albuterol/Ipratropium 3ml neb HHN SCH ×6 (02:18→23:16)
[2018-01-09 04:00] VITALS: BP 120/79
[2018-01-09] MEDS: HYDROmorphone 1mg/ml Carpuject IVP PRN ×2 (05:36→20:03)
[2018-01-09 08:00] VITALS: BP 130/70
[2018-01-09] MEDS: Advair 250/50 Inhaler - 14 dose INH SCH ×2 (09:00→19:05)
[2018-01-09] MEDS: guaiFENesin ER 600mg tab ORAL SCH (09:50)
[2018-01-09] MEDS: Metoprolol Succinate XL 50mg tab ORAL SCH ×2 (09:51→20:03)
[2018-01-09] MEDS: Losartan 50mg tab ORAL SCH ×2 (09:53→20:03)
[2018-01-09 12:00] VITALS: BP 107/67
--- NOTE | 2018-01-09 14:27 | Cardiac Electrophysiology PN ---
Assessment/Plan Assessment/Plan 1. Chest pain. Ruled out for myocardial infarction. Refused nuclear stress test. Echo pending EKG shows sinus rhythm with incomplete right bundle-branch block and left axis deviation, but no acute ST-T wave abnormalities. 2. Hypertension. Continue Norvasc 10 mg daily, losartan 50 mg b.i.d. and decrease metoprolol to 25 mg b.i.d. for bradycardia and asthma 3. Chronic obstructive pulmonary disease. On albuterol and Mucinex. 4. Normal left ventricular systolic function from most recent echo. DW RN Subjective Subjective Refused the stress test. No arrhythmias on tele. Occasional sinus erica down to 47 Objective Last 24 Hour Vital Signs Date Time Temp Pulse Resp B/P (MAP) Pulse Ox O2 Delivery O2 Flow Rate FiO2 01/09/18 12:51 97.5 01/09/18 12:00 97.5 51 20 107/67 100 Room Air 97.5 01/09/18 11:07 59 20 99 Nasal Cannula 2.0 28 01/09/18 10:57 56 18 98 Nasal Cannula 2.0 28 01/09/18 09:53 130/70 01/09/18 09:52 60 130/70 01/09/18 09:51 60 130/70 01/09/18 09:00 Nasal Cannula 01/09/18 09:00 Nasal Cannula 01/09/18 08:00 97.8 60 18 130/70 97 Room Air 97.8 01/09/18 07:24 46 01/09/18 06:57 55 18 99 Nasal Cannula 2.0 28 01/09/18 06:47 52 16 99 Nasal Cannula 2.0 28 01/09/18 06:47 99 Nasal Cannula 2.0 28 01/09/18 06:47 Nasal Cannula 2.0 28 01/09/18 04:00 97.0 50 21 120/79 100 Room Air 97.0 01/09/18 04:00 50 01/09/18 02:27 28 01/09/18 02:27 57 22 99 Nasal Cannula 2.0 28 01/09/18 02:18 54 20 99 Nasal Cannula 2.0 28 01/09/18 00:00 60 01/09/18 00:00 97.0 64 23 146/92 100 Room Air 97.0 01/08/18 23:08 53 22 99 Nasal Cannula 2.0 28 01/08/18 23:08 28 01/08/18 22:59 56 22 99 Nasal Cannula 2.0 28 01/08/18 21:00 63 131/81 01/08/18 21:00 131/81 01/08/18 20:28 Nasal Cannula 01/08/18 20:28 Nasal Cannula 01/08/18 20:00 81 01/08/18 20:00 97.0 63 21 131/81 99 Room Air 97.0 01/08/18 19:51 Nasal Cannula 2.0 28 01/08/18 19:48 99 Nasal Cannula 2.0 28 01/08/18 16:46 66 24 99 Nasal Cannula 2.0 28 01/08/18 16:33 53 24 Nasal Cannula 2.0 28 01/08/18 16:30 53 24 96 Nasal Cannula 2.0 28 01/08/18 16:00 97.7 52 20 131/78 100 Nasal Cannula 2.0 97.7 01/08/18 15:32 71 Intake and Output 01/08/18 01/09/18 19:00 07:00 Intake Total 600 ml Output Total 400 ml 800 ml Balance 200 ml -800 ml Intake Oral 600 ml Output Urine Total 400 ml 800 ml Microbiology Date/Time Source Procedure Growth Status 01/08/18 03:25 Blood Blood Culture - Preliminary NO GROWTH AFTER 24 HOURS Resulted 01/08/18 03:10 Blood Blood Culture - Preliminary NO GROWTH AFTER 24 HOURS Resulted Objective HEAD AND NECK: No JVD. LUNGS: Coarse rhonchi. CARDIOVASCULAR: Regular S1 and S2 with no gallop or murmur. ABDOMEN: Soft. EXTREMITIES: No pitting edema. Aron Holguin MD Jan 09, 2018 14:27
[2018-01-09 16:00] VITALS: BP 129/70
--- NOTE | 2018-01-09 16:31 | Consultation ---
DATE OF CONSULTATION: 01/09/2018 PULMONARY CONSULTATION HISTORY OF PRESENT ILLNESS: This is a 77-year-old male with history COPD and hypertension. He came to the hospital with left-sided chest pain. He also reports shortness of breath. He was seen and worked up in the emergency room and admitted to the hospital for subsequent management and care. PAST HISTORY: Hypertension, COPD, prostate CA, depression, anxiety. SOCIAL HISTORY: He presently denies alcohol or tobacco. Has been smoker in the past. FAMILY HISTORY: Noncontributory. REVIEW OF SYSTEMS: Denies any headaches, hematemesis, melena, or hematochezia. PHYSICAL EXAMINATION: GENERAL: Reveals a 77-year-old male. HEENT: Unremarkable. CHEST: Few basilar rhonchi. ABDOMEN: Soft. NEUROLOGIC: Nonfocal. LABORATORY DATA: Lab testing shows normal CBC and BMP. Glucose 100. Creatinine 1.1. IMAGING STUDIES: X-ray of chest has been obtained, which is negative except for mild basilar atelectasis and possible early CHF findings. IMPRESSION: 1. Mild CHF. 2. COPD. DISCUSSION: Admit to the hospital. I agree with present management and care. The patient had also been seen by Cardiology. I will continue currently with codeine. Home medications including losartan, metoprolol, pain medications, breathing treatments. Hold off of nonsteroids or antibiotics in the absence of fever or signs of infection. We will follow carefully. Wilfredo Aguilar M.D. DR: JAMAAL JOB#: [id number] CC:
[2018-01-09 20:00] VITALS: BP 115/73
[2018-01-10] VITALS: BP 141/89
--- NOTE | 2018-01-10 01:46 | History and Physical Report ---
DATE OF ADMISSION: 01/08/2018 HISTORY OF PRESENT ILLNESS: This is a 77-year-old male who came to emergency room for having chest pain, acute coronary syndrome, but also complaining of cough with sputum production. The patient claims he has toxic inhalation exposure and has been coughing with sputum production. He has no fever, no chills. PAST MEDICAL HISTORY: Significant for hypertension, degenerative arthritis, COPD. MEDICATIONS: See the list. ALLERGIES: NKA. FAMILY HISTORY: Noncontributory. SOCIAL HISTORY: Lives in [place]. Currently, no smoking, no drinking, no illegal drugs. REVIEW OF SYSTEMS: Generalized weakness, tired, fatigue, cough with sputum production. PHYSICAL EXAMINATION: VITAL SIGNS: Blood pressure is 146/90, pulse 74, respirations 18. SKIN: Good skin turgor. HEENT: AT/NC, EOMI, PERRLA. NECK: Supple. No JVD. No supraclavicular lymphadenopathy. Pharynx clear. Trachea midline. CHEST: Bilateral crackles and wheezing. CARDIOVASCULAR: Regular rhythm. No gallop. No murmur. ABDOMEN: Soft. EXTREMITIES: No CCE. NEUROLOGICAL: The patient has no focal deficit. ASSESSMENT: 1. Acute coronary syndrome. 2. Acute COPD. 3. Hypertension. 4. Degenerative arthritis. 5. Generalized weakness. 6. Dehydration. PLAN: We will admit on telemetry bed. Continue current treatment. Bronchodilator treatments routinely. T.i.d. cough syrup. Check sputum for Gram stain. Continue supportive treatment. Continue oxygen. Continue aspirin, beta-sidra. Cardiology is on the case. Josef Garcia M.D. DR: Maria L JOB#: [id number] CC:
[2018-01-10] MEDS: Albuterol/Ipratropium 3ml neb HHN SCH ×6 (03:07→23:50)
[2018-01-10 04:00] VITALS: BP 124/79
[2018-01-10] MEDS: HYDROmorphone 1mg/ml Carpuject IVP PRN ×2 (06:08→20:31)
[2018-01-10 08:00] VITALS: BP 112/69
[2018-01-10] MEDS: Losartan 50mg tab ORAL SCH ×2 (08:48→20:30)
[2018-01-10] MEDS: Metoprolol Succinate XL 50mg tab ORAL SCH (08:48)
[2018-01-10] MEDS: guaiFENesin ER 600mg tab ORAL SCH (08:48)
[2018-01-10] MEDS: Advair 250/50 Inhaler - 14 dose INH SCH ×2 (09:05→20:39)
--- NOTE | 2018-01-10 09:35 | Nephrology Progress Note ---
Assessment/Plan Problem List: (1) COPD (chronic obstructive pulmonary disease) (2) ACS (acute coronary syndrome) (3) Atypical chest pain (4) Hypertension (5) Anemia of chronic disease Plan f/u recs per cardio and pulmonary. cont neb breathing tx prn. d/c plan soon. Subjective Subjective Late entry for 01/09 - SOB better. No CP. Refused stress test. Objective Objective Last 24 Hour Vital Signs Date Time Temp Pulse Resp B/P (MAP) Pulse Ox O2 Delivery O2 Flow Rate FiO2 01/10/18 08:48 66 112/69 01/10/18 08:48 112/69 01/10/18 08:48 66 112/69 01/10/18 08:00 97.3 66 18 112/69 99 Room Air 97.3 01/10/18 07:04 55 18 99 Nasal Cannula 2.0 28 01/10/18 06:56 97 Nasal Cannula 2.0 28 01/10/18 06:56 53 18 97 Nasal Cannula 2.0 28 01/10/18 06:56 Nasal Cannula 2.0 28 01/10/18 04:00 54 01/10/18 04:00 98.1 60 20 124/79 99 Room Air 98.1 01/10/18 03:17 61 18 99 Nasal Cannula 2.0 28 01/10/18 03:06 55 18 99 Nasal Cannula 2.0 28 01/10/18 00:00 50 01/10/18 00:00 97.0 72 20 141/89 98 Room Air 97.0 01/09/18 23:26 59 18 99 Nasal Cannula 2.0 28 01/09/18 23:16 67 18 97 Nasal Cannula 2.0 28 01/09/18 20:03 72 115/70 01/09/18 20:03 115/70 01/09/18 20:00 98.1 72 20 115/73 99 Room Air 98.1 01/09/18 20:00 86 01/09/18 19:15 68 18 98 Nasal Cannula 2.0 28 01/09/18 19:07 65 18 98 Nasal Cannula 2.0 28 01/09/18 19:05 98 Nasal Cannula 2.0 28 01/09/18 19:05 Nasal Cannula 2.0 28 01/09/18 16:06 51 01/09/18 16:00 97.8 75 19 129/70 99 Room Air 97.8 01/09/18 15:26 52 17 99 Nasal Cannula 2.0 28 01/09/18 15:16 57 16 96 Nasal Cannula 2.0 28 01/09/18 12:51 97.5 01/09/18 12:00 97.5 51 20 107/67 100 Room Air 97.5 01/09/18 11:43 46 01/09/18 11:07 59 20 99 Nasal Cannula 2.0 28 01/09/18 10:57 56 18 98 Nasal Cannula 2.0 28 01/09/18 09:53 130/70 01/09/18 09:52 60 130/70 01/09/18 09:51 60 130/70 Intake and Output 01/09/18 01/10/18 19:00 07:00 Intake Total 472 ml 116 ml Output Total 400 ml 420 ml Balance 72 ml -304 ml Intake Oral 472 ml 116 ml Output Urine Total 400 ml 420 ml # Voids 3 2 Height (Feet): 6 Height (Inches): 2.00 Weight (Pounds): 225 General Appearance: no apparent distress Cardiovascular: normal rate, regular rhythm Respiratory/Chest: decreased breath sounds Abdomen: non tender, soft Extremities: non-pitting Neurologic: alert, oriented x 3 LEYLA ARRIAZA Jan 10, 2018 09:35
--- NOTE | 2018-01-10 10:27 | Pulmonology Progress Note ---
Assessment/Plan Assessment/Plan IMPRESSION: 1. Mild CHF. 2. COPD. DISCUSSION: Continue losartan, metoprolol, pain medications, breathing treatments. Hold off of steroids or antibiotics in the absence of fever or signs of infection. I will follow carefully. Subjective Interval Events: Better Constitutional: Reports: no symptoms HEENT: Repors: no symptoms Respiratory: Reports: no symptoms Cardiovascular: Reports: no symptoms Allergies: Coded Allergies: NO KNOWN DRUG ALLERGIES (Verified Allergy, Unknown, 09/18/17) Objective Last 24 Hour Vital Signs Date Time Temp Pulse Resp B/P (MAP) Pulse Ox O2 Delivery O2 Flow Rate FiO2 01/10/18 08:48 66 112/69 01/10/18 08:48 112/69 01/10/18 08:48 66 112/69 01/10/18 08:00 97.3 66 18 112/69 99 Room Air 97.3 01/10/18 07:04 55 18 99 Nasal Cannula 2.0 28 01/10/18 06:56 97 Nasal Cannula 2.0 28 01/10/18 06:56 53 18 97 Nasal Cannula 2.0 28 01/10/18 06:56 Nasal Cannula 2.0 28 01/10/18 04:00 54 01/10/18 04:00 98.1 60 20 124/79 99 Room Air 98.1 01/10/18 03:17 61 18 99 Nasal Cannula 2.0 28 01/10/18 03:06 55 18 99 Nasal Cannula 2.0 28 01/10/18 00:00 50 01/10/18 00:00 97.0 72 20 141/89 98 Room Air 97.0 01/09/18 23:26 59 18 99 Nasal Cannula 2.0 28 01/09/18 23:16 67 18 97 Nasal Cannula 2.0 28 01/09/18 20:03 72 115/70 01/09/18 20:03 115/70 01/09/18 20:00 98.1 72 20 115/73 99 Room Air 98.1 01/09/18 20:00 86 01/09/18 19:15 68 18 98 Nasal Cannula 2.0 28 01/09/18 19:07 65 18 98 Nasal Cannula 2.0 28 01/09/18 19:05 98 Nasal Cannula 2.0 28 01/09/18 19:05 Nasal Cannula 2.0 28 01/09/18 16:06 51 01/09/18 16:00 97.8 75 19 129/70 99 Room Air 97.8 01/09/18 15:26 52 17 99 Nasal Cannula 2.0 28 01/09/18 15:16 57 16 96 Nasal Cannula 2.0 28 01/09/18 12:51 97.5 01/09/18 12:00 97.5 51 20 107/67 100 Room Air 97.5 01/09/18 11:43 46 01/09/18 11:07 59 20 99 Nasal Cannula 2.0 28 01/09/18 10:57 56 18 98 Nasal Cannula 2.0 28 Intake and Output 01/09/18 01/10/18 19:00 07:00 Intake Total 472 ml 116 ml Output Total 400 ml 420 ml Balance 72 ml -304 ml Intake Oral 472 ml 116 ml Output Urine Total 400 ml 420 ml # Voids 3 2 General Appearance: no acute distress HEENT: normocephalic Respiratory/Chest: chest wall non-tender, lungs clear Cardiovascular: normal peripheral pulses, normal rate Abdomen: normal bowel sounds Microbiology Date/Time Source Procedure Growth Status 01/08/18 03:25 Blood Blood Culture - Preliminary NO GROWTH AFTER 48 HOURS Resulted 01/08/18 03:10 Blood Blood Culture - Preliminary NO GROWTH AFTER 48 HOURS Resulted Current Medications Medications (Trade) Dose Ordered Sig/Gilbert Route PRN Reason Start Time Stop Time Status Last Admin Dose Admin Albuterol/ Ipratropium (Albuterol/ Ipratropium) 3 ml Q4H PRN HHN Shortness of Breath 01/08/18 20:30 01/13/18 20:29 Albuterol/ Ipratropium (Albuterol/ Ipratropium) 3 ml Q4HRT HHN 01/08/18 23:00 01/13/18 22:59 01/10/18 06:54 Amlodipine Besylate (Norvasc) 10 mg DAILY ORAL 01/09/18 09:00 02/08/18 08:59 01/10/18 08:48 Guaifenesin (Mucinex ER) 600 mg DAILY ORAL 01/09/18 09:00 02/08/18 08:59 01/10/18 08:48 Hydromorphone HCl (Dilaudid) 1 mg Q6H PRN IVP For Pain 01/08/18 12:30 01/15/18 12:29 01/10/18 06:08 Ibuprofen (Motrin) 800 mg TID ORAL 01/08/18 13:00 02/07/18 12:59 01/10/18 08:48 Losartan Potassium (Cozaar) 50 mg EVERY 12 HOURS ORAL 01/08/18 21:00 02/07/18 20:59 01/10/18 08:48 Metoprolol Succinate (Toprol XL) 50 mg Q12HR ORAL 01/08/18 21:00 02/07/18 20:59 01/10/18 08:48 Pantoprazole (Protonix) 40 mg DAILY PRN ORAL HEART BURN 01/08/18 12:45 02/07/18 12:44 Promethazine HCl/ Codeine (Phenergan with Codeine) 10 ml QID PRN ORAL For Cough 01/08/18 12:30 02/07/18 12:29 Salmeterol Xinafoate/ Fluticasone (Advair 250/50 Diskus) 1 puffs BID INH 01/08/18 18:00 02/07/18 17:59 01/10/18 09:05 Wilfredo Aguilar MD Jan 10, 2018 10:27
[2018-01-10 12:00] VITALS: BP 125/70
--- NOTE | 2018-01-10 14:40 | Consultation ---
History of Present Illness General Date patient seen: Jan 09, 2018 Chief Complaint: Chest Pain Present Illness HPI 77-year-old male who came to emergency room for having chest pain, acute coronary syndrome, but also complaining of cough with sputum production. the pt has hx of depression and anxiety. the pt pw depressed mood and anxiety. the pt has cognitive impairment. the pt has no si/hi Allergies: Coded Allergies: NO KNOWN DRUG ALLERGIES (Verified Allergy, Unknown, 09/18/17) Medication History Scheduled Amlodipine Besylate* (Amlodipine Besylate*), 10 MG ORAL DAILY, (Reported) Desloratadine (Clarinex), 5 MG ORAL DAILY, (Reported) Desloratadine (Clarinex), 5 MG ORAL DAILY, (Reported) Esomeprazole Magnesium (Nexium), 40 MG ORAL DAILY, (Reported) Fluticasone/Salmeterol (Advair 500-50 Diskus), 1 PUFF INH DAILY, (Reported) Fluticasone/Salmeterol (Advair 500-50 Diskus), 1 PUFF INH EVERY 12 HOURS, ( Reported) Guaifenesin/Pseudoephedrne Hcl (Mucinex D Er 600-60 Mg Tablet), 1 EACH PO DAILY, (Reported) Ibuprofen* (Motrin*), 800 MG ORAL THREE TIMES A DAY Ipratropium/Albuterol Sulfate (Combivent Respimat Inhal Sylva), 18 GM IH THREE TIMES A DAY, (Reported) Levofloxacin* (Levaquin*), 500 MG ORAL DAILY, (Reported) Losartan Potassium* (Cozaar*), 50 MG ORAL Q12HR, (Reported) Metoprolol Succinate* (Toprol Xl*), 50 MG ORAL Q12HR, (Reported) Mometasone Furoate (Nasonex), 1 SPRAYS NASAL DAILY, (Reported) Mometasone Furoate (Nasonex), 2 SPRAYS NASAL DAILY, (Reported) Prednisolone* (Prelone*), 10 MG ORAL DAILY, (Reported) Theophylline (Theodur*), 200 MG ORAL TWICE A DAY, (Reported) Tiotropium Bradley* (Spiriva*), 1 PUFF INH DAILY, (Reported) Scheduled PRN Albuterol Sulfate* (Albuterol Sulfate Hhn*), 2.5 MG HHN Q4H PRN for Shortness of Breath Codeine/Promethazine Hcl* (Promethazine-Codeine Syrup*), 10 ML ORAL QID PRN for For Cough, (Reported) Miscellaneous Medications Ipratropium/Albuterol Sulfate (Combivent Respimat Inhal Sylva), 4 GM IH, ( Reported) Patient History History Provided By: Patient, Medical Record Healthcare decision maker Resuscitation status Advanced Directive on File Past Medical/Surgical History Past Medical/Surgical History: (1) Lumbar arthropathy (2) Interstitial lung disease (3) Anxiety disorder (4) Depression (5) Abnormal gait (6) Chronic pain syndrome (7) generalised myalgia/arthralgia (8) cephalgia,muscle contraction type (9) Numbness and tingling of both legs (10) Acute bronchitis (11) Prostate CA (12) Constipation (13) Degenerative joint disease (14) Malnutrition (15) COPD (chronic obstructive pulmonary disease) (16) H/O prostate cancer (17) Anemia of chronic disease (18) Hypertension (19) Atypical chest pain (20) ACS (acute coronary syndrome) Review of Systems Psychiatric: Reports: prior hx, anxiety, depressed feelings, emotional problems Physical Exam General Appearance: no apparent distress, alert Neurologic: depressed affect Last 24 Hour Vital Signs Date Time Temp Pulse Resp B/P (MAP) Pulse Ox O2 Delivery O2 Flow Rate FiO2 01/10/18 11:08 54 18 99 Nasal Cannula 2.0 28 01/10/18 10:55 54 18 98 Nasal Cannula 2.0 28 01/10/18 08:48 66 112/69 01/10/18 08:48 112/69 01/10/18 08:48 66 112/69 01/10/18 08:00 97.3 66 18 112/69 99 Room Air 97.3 01/10/18 07:04 55 18 99 Nasal Cannula 2.0 28 01/10/18 06:56 97 Nasal Cannula 2.0 28 01/10/18 06:56 53 18 97 Nasal Cannula 2.0 28 01/10/18 06:56 Nasal Cannula 2.0 28 01/10/18 04:00 54 01/10/18 04:00 98.1 60 20 124/79 99 Room Air 98.1 01/10/18 03:17 61 18 99 Nasal Cannula 2.0 28 01/10/18 03:06 55 18 99 Nasal Cannula 2.0 28 01/10/18 00:00 50 01/10/18 00:00 97.0 72 20 141/89 98 Room Air 97.0 01/09/18 23:26 59 18 99 Nasal Cannula 2.0 28 01/09/18 23:16 67 18 97 Nasal Cannula 2.0 28 01/09/18 20:03 72 115/70 01/09/18 20:03 115/70 01/09/18 20:00 98.1 72 20 115/73 99 Room Air 98.1 01/09/18 20:00 86 01/09/18 19:15 68 18 98 Nasal Cannula 2.0 28 01/09/18 19:07 65 18 98 Nasal Cannula 2.0 28 01/09/18 19:05 98 Nasal Cannula 2.0 28 01/09/18 19:05 Nasal Cannula 2.0 28 01/09/18 16:06 51 01/09/18 16:00 97.8 75 19 129/70 99 Room Air 97.8 01/09/18 15:26 52 17 99 Nasal Cannula 2.0 28 01/09/18 15:16 57 16 96 Nasal Cannula 2.0 28 Intake and Output 01/09/18 01/10/18 19:00 07:00 Intake Total 472 ml 116 ml Output Total 400 ml 420 ml Balance 72 ml -304 ml Intake Oral 472 ml 116 ml Output Urine Total 400 ml 420 ml # Voids 3 2 Height (Feet): 6 Height (Inches): 2.00 Weight (Pounds): 225 Medications Current Medications Medications (Trade) Dose Ordered Sig/Gilbert Route PRN Reason Start Time Stop Time Status Last Admin Dose Admin Albuterol/ Ipratropium (Albuterol/ Ipratropium) 3 ml Q4H PRN HHN Shortness of Breath 01/08/18 20:30 01/13/18 20:29 Albuterol/ Ipratropium (Albuterol/ Ipratropium) 3 ml Q4HRT HHN 01/08/18 23:00 01/13/18 22:59 01/10/18 10:55 Amlodipine Besylate (Norvasc) 10 mg DAILY ORAL 01/09/18 09:00 02/08/18 08:59 01/10/18 08:48 Guaifenesin (Mucinex ER) 600 mg DAILY ORAL 01/09/18 09:00 02/08/18 08:59 01/10/18 08:48 Hydromorphone HCl (Dilaudid) 1 mg Q6H PRN IVP For Pain 01/08/18 12:30 01/15/18 12:29 01/10/18 06:08 Ibuprofen (Motrin) 800 mg TID ORAL 01/08/18 13:00 02/07/18 12:59 01/10/18 13:24 Losartan Potassium (Cozaar) 50 mg EVERY 12 HOURS ORAL 01/08/18 21:00 02/07/18 20:59 01/10/18 08:48 Metoprolol Succinate (Toprol XL) 50 mg Q12HR ORAL 01/08/18 21:00 02/07/18 20:59 01/10/18 08:48 Pantoprazole (Protonix) 40 mg DAILY PRN ORAL HEART BURN 01/08/18 12:45 02/07/18 12:44 Promethazine HCl/ Codeine (Phenergan with Codeine) 10 ml QID PRN ORAL For Cough 01/08/18 12:30 02/07/18 12:29 Salmeterol Xinafoate/ Fluticasone (Advair 250/50 Diskus) 1 puffs BID INH 01/08/18 18:00 02/07/18 17:59 01/10/18 09:05 Assessment/Plan Assessment/Plan MDD Anxiety -lexapro 10mg qalissette -provided the pt with alyx/Rosanne Ugalde M.D. Jan 10, 2018 14:40
--- NOTE | 2018-01-10 15:15 | Cardiac Electrophysiology PN ---
Assessment/Plan Assessment/Plan 1. Chest pain. Ruled out for myocardial infarction. Refused nuclear stress test. Echo pending EKG shows sinus rhythm with incomplete right bundle-branch block and left axis deviation, but no acute ST-T wave abnormalities. 2. Hypertension. Continue Norvasc 10 mg daily, Losartan 50 mg b.i.d. and metoprolol 25 mg b.i.d. 3. Chronic obstructive pulmonary disease. On albuterol and Mucinex. 4. Normal left ventricular systolic function from most recent echo. NOVA RN Subjective Subjective Sinus erica down to 47, now 56. Getting nebulizer treatment Objective Last 24 Hour Vital Signs Date Time Temp Pulse Resp B/P (MAP) Pulse Ox O2 Delivery O2 Flow Rate FiO2 01/10/18 15:05 61 18 99 Nasal Cannula 2.0 28 01/10/18 14:56 61 18 99 Nasal Cannula 2.0 28 01/10/18 11:08 54 18 99 Nasal Cannula 2.0 28 01/10/18 10:55 54 18 98 Nasal Cannula 2.0 28 01/10/18 08:48 66 112/69 01/10/18 08:48 112/69 01/10/18 08:48 66 112/69 01/10/18 08:00 97.3 66 18 112/69 99 Room Air 97.3 01/10/18 07:04 55 18 99 Nasal Cannula 2.0 28 01/10/18 06:56 97 Nasal Cannula 2.0 28 01/10/18 06:56 53 18 97 Nasal Cannula 2.0 28 01/10/18 06:56 Nasal Cannula 2.0 28 01/10/18 04:00 54 01/10/18 04:00 98.1 60 20 124/79 99 Room Air 98.1 01/10/18 03:17 61 18 99 Nasal Cannula 2.0 28 01/10/18 03:06 55 18 99 Nasal Cannula 2.0 28 01/10/18 00:00 50 01/10/18 00:00 97.0 72 20 141/89 98 Room Air 97.0 01/09/18 23:26 59 18 99 Nasal Cannula 2.0 28 01/09/18 23:16 67 18 97 Nasal Cannula 2.0 28 01/09/18 20:03 72 115/70 01/09/18 20:03 115/70 01/09/18 20:00 98.1 72 20 115/73 99 Room Air 98.1 01/09/18 20:00 86 01/09/18 19:15 68 18 98 Nasal Cannula 2.0 28 01/09/18 19:07 65 18 98 Nasal Cannula 2.0 28 01/09/18 19:05 98 Nasal Cannula 2.0 28 01/09/18 19:05 Nasal Cannula 2.0 28 01/09/18 16:06 51 01/09/18 16:00 97.8 75 19 129/70 99 Room Air 97.8 01/09/18 15:26 52 17 99 Nasal Cannula 2.0 28 01/09/18 15:16 57 16 96 Nasal Cannula 2.0 28 Intake and Output 01/09/18 01/10/18 19:00 07:00 Intake Total 472 ml 116 ml Output Total 400 ml 420 ml Balance 72 ml -304 ml Intake Oral 472 ml 116 ml Output Urine Total 400 ml 420 ml # Voids 3 2 Microbiology Date/Time Source Procedure Growth Status 01/08/18 03:25 Blood Blood Culture - Preliminary NO GROWTH AFTER 48 HOURS Resulted 01/08/18 03:10 Blood Blood Culture - Preliminary NO GROWTH AFTER 48 HOURS Resulted Objective HEAD AND NECK: No JVD. LUNGS: Coarse rhonchi. CARDIOVASCULAR: Erica S1 and S2 with no gallop or murmur. ABDOMEN: Soft. EXTREMITIES: No pitting edema. Aron Holguin MD Jan 10, 2018 15:15
[2018-01-10 16:00] VITALS: BP 132/70
[2018-01-10 20:00] VITALS: BP 134/84
[2018-01-10] MEDS: Metoprolol Succinate XL 25mg tab ORAL SCH (20:30)
[2018-01-11] VITALS: BP 119/70
--- NOTE | 2018-01-11 01:00 | Progress Note ---
DATE: 01/11/2018 SUBJECTIVE: This is a 77-year-old male, who is currently doing better. Short of breath is improving. OBJECTIVE: VITAL SIGNS: Blood pressure is 130/70, pulse 74, and respirations 18. SKIN: He has good skin turgor. HEENT: NAD. CHEST: Bilaterally few crackles and wheezing. CARDIOVASCULAR: Regular rhythm. No gallop. No murmur. ABDOMEN: Soft. Positive bowel sounds. Nontender. GENITOURINARY: Deferred. EXTREMITIES: No swelling. LABORATORY DATA: No labs today. ASSESSMENT: 1. Acute chronic obstructive pulmonary disease. 2. Hypertension. 3. Dehydration. 4. Renal insufficiency. PLAN: We will currently continue current medical treatment. Continue bronchodilator treatments. PT and OT. Discussed with the classification case manager and charge nurse. Josef Garcia M.D. DR: Jr JOB#: [id number] CC:
[2018-01-11] MEDS: Albuterol/Ipratropium 3ml neb HHN SCH ×6 (03:47→23:13)
[2018-01-11 04:00] VITALS: BP 150/59
[2018-01-11 08:31] VITALS: BP 108/76
[2018-01-11] MEDS: Losartan 50mg tab ORAL SCH ×2 (08:32→20:28)
[2018-01-11] MEDS: guaiFENesin ER 600mg tab ORAL SCH (08:33)
[2018-01-11] MEDS: Metoprolol Succinate XL 25mg tab ORAL SCH ×2 (08:34→21:00)
[2018-01-11] MEDS: Advair 250/50 Inhaler - 14 dose INH SCH ×2 (08:44→19:50)
--- NOTE | 2018-01-11 09:07 | Cardiac Electrophysiology PN ---
Assessment/Plan Assessment/Plan 1. Chest pain. Ruled out for myocardial infarction. Refused nuclear stress test. Echo EF 65% EKG shows sinus rhythm with incomplete right bundle-branch block and left axis deviation, but no acute ST-T wave abnormalities. 2. Hypertension. Continue Norvasc 10 mg daily, Losartan 50 mg b.i.d. and metoprolol 25 mg b.i.d. 3. Chronic obstructive pulmonary disease. On albuterol and Mucinex. DW RN OK to DC from cardiac perspective Subjective Subjective Now in sinus rhythm in 70s.RN at bedside Objective Last 24 Hour Vital Signs Date Time Temp Pulse Resp B/P (MAP) Pulse Ox O2 Delivery O2 Flow Rate FiO2 01/11/18 08:34 83 108/76 01/11/18 08:33 83 108/76 01/11/18 08:32 108/76 01/11/18 08:31 97.7 83 18 108/76 100 Nasal Cannula 2.0 97.7 01/11/18 07:05 72 20 100 Nasal Cannula 2.0 28 01/11/18 06:59 Nasal Cannula 2.0 28 01/11/18 06:59 100 Nasal Cannula 2.0 28 01/11/18 06:56 72 20 100 Nasal Cannula 2.0 28 01/11/18 04:00 46 01/11/18 04:00 97.3 73 20 150/59 100 Room Air 97.3 01/11/18 04:00 67 01/11/18 03:48 86 20 99 Nasal Cannula 2.0 28 01/11/18 03:47 82 20 97 Nasal Cannula 2.0 28 01/11/18 00:00 97.5 50 20 119/70 100 Room Air 97.5 01/11/18 00:00 59 01/10/18 23:52 82 18 99 Nasal Cannula 2.0 28 01/10/18 23:51 80 20 96 Nasal Cannula 2.0 28 01/10/18 21:01 97.5 01/10/18 20:31 97.5 01/10/18 20:30 87 134/84 01/10/18 20:30 134/84 01/10/18 20:00 97.5 87 20 134/84 100 Room Air 97.5 01/10/18 20:00 98 Nasal Cannula 2.0 28 01/10/18 20:00 64 01/10/18 20:00 Nasal Cannula 2.0 28 01/10/18 20:00 86 20 98 Nasal Cannula 2.0 28 01/10/18 20:00 90 18 99 Nasal Cannula 2.0 28 01/10/18 16:00 97.7 85 19 132/70 98 Room Air 97.7 01/10/18 16:00 55 01/10/18 15:05 61 18 99 Nasal Cannula 2.0 28 01/10/18 14:56 61 18 99 Nasal Cannula 2.0 28 01/10/18 12:00 58 01/10/18 12:00 97.3 90 19 125/70 99 Room Air 97.3 01/10/18 11:08 54 18 99 Nasal Cannula 2.0 28 01/10/18 10:55 54 18 98 Nasal Cannula 2.0 28 Intake and Output 01/10/18 01/11/18 19:00 07:00 Intake Total 472 ml Output Total 400 ml Balance 72 ml Intake Oral 472 ml Output Urine Total 400 ml # Voids 2 Objective HEAD AND NECK: No JVD. LUNGS: Clear CARDIOVASCULAR: Nl S1 and S2 with no gallop or murmur. ABDOMEN: Soft. EXTREMITIES: No pitting edema. Aron Holguin MD Jan 11, 2018 09:07
--- NOTE | 2018-01-11 09:40 | Pulmonology Progress Note ---
Assessment/Plan Assessment/Plan IMPRESSION: 1. Mild CHF. 2. COPD. DISCUSSION: Continue losartan, metoprolol, pain medications, breathing treatments. Hold off of steroids or antibiotics in the absence of fever or signs of infection. I will follow carefully. Subjective Interval Events: Better Constitutional: Reports: no symptoms HEENT: Repors: no symptoms Respiratory: Reports: no symptoms Cardiovascular: Reports: no symptoms Gastrointestinal/Abdominal: Reports: no symptoms Genitourinary: Reports: no symptoms Allergies: Coded Allergies: NO KNOWN DRUG ALLERGIES (Verified Allergy, Unknown, 09/18/17) Objective Last 24 Hour Vital Signs Date Time Temp Pulse Resp B/P (MAP) Pulse Ox O2 Delivery O2 Flow Rate FiO2 01/11/18 08:34 83 108/76 01/11/18 08:33 83 108/76 01/11/18 08:32 108/76 01/11/18 08:31 97.7 83 18 108/76 100 Nasal Cannula 2.0 97.7 01/11/18 07:05 72 20 100 Nasal Cannula 2.0 28 01/11/18 06:59 Nasal Cannula 2.0 28 01/11/18 06:59 100 Nasal Cannula 2.0 28 01/11/18 06:56 72 20 100 Nasal Cannula 2.0 28 01/11/18 04:00 46 01/11/18 04:00 97.3 73 20 150/59 100 Room Air 97.3 01/11/18 04:00 67 01/11/18 03:48 86 20 99 Nasal Cannula 2.0 28 01/11/18 03:47 82 20 97 Nasal Cannula 2.0 28 01/11/18 00:00 97.5 50 20 119/70 100 Room Air 97.5 01/11/18 00:00 59 01/10/18 23:52 82 18 99 Nasal Cannula 2.0 28 01/10/18 23:51 80 20 96 Nasal Cannula 2.0 28 01/10/18 21:01 97.5 01/10/18 20:31 97.5 01/10/18 20:30 87 134/84 01/10/18 20:30 134/84 01/10/18 20:00 97.5 87 20 134/84 100 Room Air 97.5 01/10/18 20:00 98 Nasal Cannula 2.0 28 01/10/18 20:00 64 01/10/18 20:00 Nasal Cannula 2.0 28 01/10/18 20:00 86 20 98 Nasal Cannula 2.0 28 01/10/18 20:00 90 18 99 Nasal Cannula 2.0 28 01/10/18 16:00 97.7 85 19 132/70 98 Room Air 97.7 01/10/18 16:00 55 01/10/18 15:05 61 18 99 Nasal Cannula 2.0 28 01/10/18 14:56 61 18 99 Nasal Cannula 2.0 28 01/10/18 12:00 58 01/10/18 12:00 97.3 90 19 125/70 99 Room Air 97.3 01/10/18 11:08 54 18 99 Nasal Cannula 2.0 28 01/10/18 10:55 54 18 98 Nasal Cannula 2.0 28 Intake and Output 01/10/18 01/11/18 19:00 07:00 Intake Total 472 ml Output Total 400 ml Balance 72 ml Intake Oral 472 ml Output Urine Total 400 ml # Voids 2 General Appearance: no acute distress HEENT: normocephalic Respiratory/Chest: chest wall non-tender, normal breath sounds Cardiovascular: normal peripheral pulses Current Medications Medications (Trade) Dose Ordered Sig/Gilbert Route PRN Reason Start Time Stop Time Status Last Admin Dose Admin Albuterol/ Ipratropium (Albuterol/ Ipratropium) 3 ml Q4H PRN N Shortness of Breath 01/08/18 20:30 01/13/18 20:29 Albuterol/ Ipratropium (Albuterol/ Ipratropium) 3 ml Q4HRT HHN 01/08/18 23:00 01/13/18 22:59 01/11/18 06:56 Amlodipine Besylate (Norvasc) 10 mg DAILY ORAL 01/09/18 09:00 02/08/18 08:59 01/11/18 08:33 Escitalopram Oxalate (Lexapro) 10 mg DAILY ORAL 01/11/18 09:00 02/10/18 08:59 01/11/18 08:32 Guaifenesin (Mucinex ER) 600 mg DAILY ORAL 01/09/18 09:00 02/08/18 08:59 01/11/18 08:33 Hydromorphone HCl (Dilaudid) 1 mg Q6H PRN IVP For Pain 01/08/18 12:30 01/15/18 12:29 01/10/18 20:31 Ibuprofen (Motrin) 800 mg TID ORAL 01/08/18 13:00 02/07/18 12:59 01/11/18 08:33 Losartan Potassium (Cozaar) 50 mg EVERY 12 HOURS ORAL 01/08/18 21:00 02/07/18 20:59 01/11/18 08:32 Metoprolol Succinate (Toprol XL) 25 mg Q12HR ORAL 01/10/18 21:00 02/09/18 20:59 01/11/18 08:34 Pantoprazole (Protonix) 40 mg DAILY PRN ORAL HEART BURN 01/08/18 12:45 02/07/18 12:44 Promethazine HCl/ Codeine (Phenergan with Codeine) 10 ml QID PRN ORAL For Cough 01/08/18 12:30 02/07/18 12:29 Salmeterol Xinafoate/ Fluticasone (Advair 250/50 Diskus) 1 puffs BID INH 01/08/18 18:00 02/07/18 17:59 01/11/18 08:44 Wilfredo Aguilar MD Jan 11, 2018 09:40
[2018-01-11 11:49] VITALS: BP 111/81
[2018-01-11] MEDS ORDERED: Milk of Magnesia 30ml Ud ORAL SCH (14:15)
[2018-01-11] MEDS ORDERED: Albuterol/Ipratropium 3ml neb HHN PRN (14:45)
[2018-01-11 16:00] VITALS: BP 102/70
[2018-01-11] MEDS: Milk of Magnesia 30ml Ud ORAL SCH (17:28)
[2018-01-11] MEDS ORDERED: Promethazine/Codeine 5ml UD ORAL PRN (18:00)
[2018-01-11 20:00] VITALS: BP 140/80
[2018-01-12] VITALS: BP 156/95
[2018-01-12] MEDS: Albuterol/Ipratropium 3ml neb HHN SCH ×6 (03:00→23:00)
--- NOTE | 2018-01-12 03:30 | Progress Note ---
DATE: 01/12/2018 SUBJECTIVE: The patient is 77 years old male, who is currently doing better. No distress. Short of breath is improved. OBJECTIVE: VITAL SIGNS: Blood pressure is 136/70, pulse 74, and respirations 18, no fever, saturation 90%. SKIN: Good skin turgor. CHEST: Bilateral few crackles. CARDIOVASCULAR: Regular rhythm. No gallop. No murmur. ABDOMEN: Soft. EXTREMITIES: CCE. ASSESSMENT AND PLAN: 1. Acute chronic obstructive pulmonary disease. 2. Congestive heart failure. 3. Hypertension. 4. Degenerative arthritis. PLAN: We will continue bronchodilator treatment,, oxygen. Continue supportive treatment. Josef Garcia M.D. DR: Driss JOB#: [id number] CC:
[2018-01-12 04:00] VITALS: BP_SYST 133; BP_SYST 165; BP_DIAS 106; BP_DIAS 84
[2018-01-12] MEDS: Losartan 50mg tab ORAL SCH ×2 (04:52→21:18)
[2018-01-12 08:00] VITALS: BP 168/94
[2018-01-12] MEDS: guaiFENesin ER 600mg tab ORAL SCH (08:16)
[2018-01-12] MEDS: Milk of Magnesia 30ml Ud ORAL SCH ×2 (08:16→17:30)
[2018-01-12] MEDS: Metoprolol Succinate XL 25mg tab ORAL SCH (08:17)
[2018-01-12] MEDS: Advair 250/50 Inhaler - 14 dose INH SCH ×2 (08:42→20:37)
--- NOTE | 2018-01-12 09:39 | Pulmonology Progress Note ---
Assessment/Plan Assessment/Plan IMPRESSION: 1. Mild CHF. 2. COPD. DISCUSSION: Continue losartan, metoprolol, pain medications, breathing treatments. Hold off of steroids or antibiotics in the absence of fever or signs of infection. I will follow carefully. Will follow as needed Subjective Interval Events: None Constitutional: Reports: no symptoms HEENT: Repors: no symptoms Respiratory: Reports: no symptoms Cardiovascular: Reports: no symptoms Gastrointestinal/Abdominal: Reports: no symptoms Allergies: Coded Allergies: NO KNOWN DRUG ALLERGIES (Verified Allergy, Unknown, 09/18/17) Objective Last 24 Hour Vital Signs Date Time Temp Pulse Resp B/P (MAP) Pulse Ox O2 Delivery O2 Flow Rate FiO2 01/12/18 08:20 68 168/94 01/12/18 08:17 68 168/94 01/12/18 08:00 97.9 68 18 168/94 99 Nasal Cannula 2.0 97.9 01/12/18 07:02 Nasal Cannula 01/12/18 07:02 Nasal Cannula 01/12/18 07:01 Nasal Cannula 2.0 28 01/12/18 07:01 97 Nasal Cannula 2.0 28 01/12/18 04:52 165/106 01/12/18 04:00 97.6 75 18 165/106 99 Nasal Cannula 2.0 97.6 01/12/18 03:00 Nasal Cannula 01/12/18 03:00 Nasal Cannula 01/12/18 00:00 97.9 78 18 156/95 99 Nasal Cannula 2.0 97.9 01/11/18 23:25 81 20 99 Nasal Cannula 2.0 28 01/11/18 23:13 71 20 100 Nasal Cannula 2.0 01/11/18 21:00 58 140/80 01/11/18 20:28 140/80 01/11/18 20:00 97.5 58 18 140/80 100 Nasal Cannula 2.0 97.5 01/11/18 19:55 62 18 100 Nasal Cannula 2.0 28 01/11/18 19:51 Nasal Cannula 2.0 28 01/11/18 19:51 99 Nasal Cannula 2.0 28 01/11/18 19:51 54 20 100 Nasal Cannula 2.0 28 01/11/18 18:14 97.2 01/11/18 16:00 69 18 102/70 100 Room Air 01/11/18 15:31 70 20 100 Nasal Cannula 2.0 28 01/11/18 15:21 70 20 99 Nasal Cannula 2.0 28 01/11/18 12:00 52 01/11/18 11:49 97.2 57 16 111/81 99 Nasal Cannula 2.0 97.2 01/11/18 11:11 74 20 100 Nasal Cannula 2.0 28 01/11/18 11:01 74 20 98 Nasal Cannula 2.0 28 Intake and Output 01/11/18 01/12/18 19:00 07:00 Intake Total 480 ml 4000 ml Output Total 1200 ml 3700 ml Balance -720 ml 300 ml Intake Oral 480 ml 4000 ml Output Urine Total 1200 ml 3700 ml # Voids 8 # Bowel Movements 1 General Appearance: no acute distress HEENT: normocephalic Respiratory/Chest: chest wall non-tender Cardiovascular: normal peripheral pulses, normal rate Abdomen: normal bowel sounds, soft, non tender Current Medications Medications (Trade) Dose Ordered Sig/Gilbert Route PRN Reason Start Time Stop Time Status Last Admin Dose Admin Albuterol/ Ipratropium (Albuterol/ Ipratropium) 3 ml Q4H PRN HHN Shortness of Breath 01/11/18 14:45 01/13/18 14:44 Albuterol/ Ipratropium (Albuterol/ Ipratropium) 3 ml Q4HRT HHN 01/11/18 15:00 01/13/18 22:59 01/11/18 23:13 Amlodipine Besylate (Norvasc) 10 mg DAILY ORAL 01/12/18 09:00 02/08/18 08:59 01/12/18 08:20 Escitalopram Oxalate (Lexapro) 10 mg DAILY ORAL 01/12/18 09:00 02/10/18 08:59 01/12/18 08:16 Guaifenesin (Mucinex ER) 600 mg DAILY ORAL 01/12/18 09:00 02/08/18 08:59 01/12/18 08:16 Hydromorphone HCl (Dilaudid) 1 mg Q6H PRN IVP Severe Pain 01/11/18 14:45 01/15/18 14:44 01/12/18 06:37 Ibuprofen (Motrin) 800 mg TID ORAL 01/11/18 18:00 02/07/18 12:59 01/12/18 08:18 Losartan Potassium (Cozaar) 50 mg EVERY 12 HOURS ORAL 01/11/18 21:00 02/07/18 20:59 01/12/18 04:52 Magnesium Hydroxide (Mom) 30 ml BID ORAL 01/11/18 18:00 02/10/18 14:14 01/12/18 08:16 Metoprolol Succinate (Toprol XL) 25 mg Q12HR ORAL 01/11/18 21:00 02/09/18 20:59 01/12/18 08:17 Pantoprazole (Protonix) 40 mg DAILYPRN PRN ORAL HEART BURN 01/12/18 09:00 02/11/18 08:59 Promethazine HCl/ Codeine (Phenergan with Codeine) 10 ml QIDPRN PRN ORAL For Cough 01/11/18 18:00 02/10/18 17:59 Salmeterol Xinafoate/ Fluticasone (Advair 250/50 Diskus) 1 puffs BID INH 01/11/18 18:00 02/07/18 17:59 01/12/18 08:42 Wilfredo Aguilar MD Jan 12, 2018 09:39
[2018-01-12] MEDS ORDERED: Metoprolol Succinate XL 25mg tab ORAL ONE (11:00)
[2018-01-12 12:00] VITALS: BP 143/80
[2018-01-12 16:00] VITALS: BP 150/92
[2018-01-12 17:43] LABS: APPEARANCE,URINE CLEAR; BILIRUBIN, URINE NEGATIVE (NEGATIVE); COLOR,URINE PALE YELLOW; GLUCOSE, URINE (UA) NEGATIVE (NEGATIVE); KETONES,URINE NEGATIVE (NEGATIVE); LEUKOCYTE ESTERASE ,URINE NEGATIVE (NEGATIVE); NITRITE,URINE NEGATIVE (NEGATIVE); PH,URINE 8 (4.5-8.0); PROTEIN,URINE NEGATIVE (NEGATIVE); UROBILINOGEN,URINE NORMAL MG/DL (0.0-1.0)
[2018-01-12 20:00] VITALS: BP 151/81
[2018-01-12] MEDS: Metoprolol Succinate XL 50mg tab ORAL SCH (21:18)
--- NOTE | 2018-01-12 22:06 | Nephrology Progress Note ---
Assessment/Plan Problem List: (1) COPD (chronic obstructive pulmonary disease) (2) ACS (acute coronary syndrome) (3) Atypical chest pain (4) Hypertension (5) Anemia of chronic disease Plan f/u recs per cardio and pulmonary. cont neb breathing tx prn. d/c plan soon. Subjective Subjective Late entry for 01/11 - SOB better. Objective Objective Last 24 Hour Vital Signs Date Time Temp Pulse Resp B/P (MAP) Pulse Ox O2 Delivery O2 Flow Rate FiO2 01/12/18 21:18 64 151/81 01/12/18 21:18 151/81 01/12/18 20:00 98.5 64 20 151/81 100 98.5 01/12/18 19:19 99 Nasal Cannula 2.0 28 01/12/18 19:19 Nasal Cannula 2.0 28 01/12/18 19:18 Nasal Cannula 2.0 28 01/12/18 19:18 Nasal Cannula 2.0 01/12/18 16:00 97.7 68 18 150/92 99 Nasal Cannula 2.0 97.7 01/12/18 15:04 Nasal Cannula 01/12/18 15:04 Nasal Cannula 2.0 28 01/12/18 12:00 97.5 58 18 143/80 99 Nasal Cannula 2.0 97.5 01/12/18 11:45 Nasal Cannula 01/12/18 11:45 Nasal Cannula 2.0 28 01/12/18 10:55 78 170/88 01/12/18 08:20 68 168/94 01/12/18 08:17 68 168/94 01/12/18 08:00 97.9 68 18 168/94 99 Nasal Cannula 2.0 97.9 01/12/18 07:02 Nasal Cannula 01/12/18 07:02 Nasal Cannula 01/12/18 07:01 Nasal Cannula 2.0 28 01/12/18 07:01 97 Nasal Cannula 2.0 28 01/12/18 04:52 165/106 01/12/18 04:00 97.6 75 18 165/106 99 Nasal Cannula 2.0 97.6 01/12/18 03:00 Nasal Cannula 01/12/18 03:00 Nasal Cannula 01/12/18 00:00 97.9 78 18 156/95 99 Nasal Cannula 2.0 97.9 01/11/18 23:25 81 20 99 Nasal Cannula 2.0 28 01/11/18 23:13 71 20 100 Nasal Cannula 2.0 28 Intake and Output 01/11/18 01/12/18 19:00 07:00 Intake Total 480 ml 4000 ml Output Total 1200 ml 3700 ml Balance -720 ml 300 ml Intake Oral 480 ml 4000 ml Output Urine Total 1200 ml 3700 ml # Voids 8 # Bowel Movements 1 Laboratory Tests 01/12/18 17:00: Urine Color Pale yellow, Urine Appearance Clear, Urine pH 8, Urine Specific [place] 1.015, Urine Protein Negative, Urine Glucose (UA) Negative, Urine Ketones Negative, Urine Occult Blood 1+H, Urine Nitrite Negative, Urine Bilirubin Negative, Urine Urobilinogen Normal, Urine Leukocyte Esterase Negative , Urine RBC 0-2H, Urine WBC 0-2, Urine Squamous Epithelial Cells None, Urine Bacteria None Height (Feet): 6 Height (Inches): 2.00 Weight (Pounds): 225 General Appearance: no apparent distress Cardiovascular: normal rate, regular rhythm Respiratory/Chest: chest wall non-tender Abdomen: non tender, soft LEYLA ARRIAZA Jan 12, 2018 22:06
--- NOTE | 2018-01-12 22:07 | Nephrology Progress Note ---
Assessment/Plan Problem List: (1) COPD (chronic obstructive pulmonary disease) (2) ACS (acute coronary syndrome) (3) Atypical chest pain (4) Hypertension (5) Anemia of chronic disease Plan f/u recs per cardio and pulmonary. cont neb breathing tx prn. d/c plan soon. Subjective Subjective no c/p or sob. Objective Objective Last 24 Hour Vital Signs Date Time Temp Pulse Resp B/P (MAP) Pulse Ox O2 Delivery O2 Flow Rate FiO2 01/12/18 21:18 64 151/81 01/12/18 21:18 151/81 01/12/18 20:00 98.5 64 20 151/81 100 98.5 01/12/18 19:19 99 Nasal Cannula 2.0 28 01/12/18 19:19 Nasal Cannula 2.0 28 01/12/18 19:18 Nasal Cannula 2.0 28 01/12/18 19:18 Nasal Cannula 2.0 01/12/18 16:00 97.7 68 18 150/92 99 Nasal Cannula 2.0 97.7 01/12/18 15:04 Nasal Cannula 01/12/18 15:04 Nasal Cannula 2.0 28 01/12/18 12:00 97.5 58 18 143/80 99 Nasal Cannula 2.0 97.5 01/12/18 11:45 Nasal Cannula 01/12/18 11:45 Nasal Cannula 2.0 28 01/12/18 10:55 78 170/88 01/12/18 08:20 68 168/94 01/12/18 08:17 68 168/94 01/12/18 08:00 97.9 68 18 168/94 99 Nasal Cannula 2.0 97.9 01/12/18 07:02 Nasal Cannula 01/12/18 07:02 Nasal Cannula 01/12/18 07:01 Nasal Cannula 2.0 28 01/12/18 07:01 97 Nasal Cannula 2.0 28 01/12/18 04:52 165/106 01/12/18 04:00 97.6 75 18 165/106 99 Nasal Cannula 2.0 97.6 01/12/18 03:00 Nasal Cannula 01/12/18 03:00 Nasal Cannula 01/12/18 00:00 97.9 78 18 156/95 99 Nasal Cannula 2.0 97.9 01/11/18 23:25 81 20 99 Nasal Cannula 2.0 28 01/11/18 23:13 71 20 100 Nasal Cannula 2.0 28 Intake and Output 01/11/18 01/12/18 19:00 07:00 Intake Total 480 ml 4000 ml Output Total 1200 ml 3700 ml Balance -720 ml 300 ml Intake Oral 480 ml 4000 ml Output Urine Total 1200 ml 3700 ml # Voids 8 # Bowel Movements 1 Laboratory Tests 01/12/18 17:00: Urine Color Pale yellow, Urine Appearance Clear, Urine pH 8, Urine Specific [place] 1.015, Urine Protein Negative, Urine Glucose (UA) Negative, Urine Ketones Negative, Urine Occult Blood 1+H, Urine Nitrite Negative, Urine Bilirubin Negative, Urine Urobilinogen Normal, Urine Leukocyte Esterase Negative , Urine RBC 0-2H, Urine WBC 0-2, Urine Squamous Epithelial Cells None, Urine Bacteria None Height (Feet): 6 Height (Inches): 2.00 Weight (Pounds): 225 General Appearance: no apparent distress Cardiovascular: normal rate, regular rhythm Respiratory/Chest: lungs clear Abdomen: non tender, soft LEYLA ARRIAZA Jan 12, 2018 22:07
[2018-01-13] VITALS: BP 159/99
[2018-01-13] MEDS: Albuterol/Ipratropium 3ml neb HHN SCH ×5 (03:16→19:43)
[2018-01-13 04:00] VITALS: BP 160/88
[2018-01-13 08:00] VITALS: BP 154/89
--- NOTE | 2018-01-13 08:48 | Cardiology Report ---
APPROVED REPORT EXAM: Two-dimensional and M-mode echocardiogram with Doppler and color Doppler. INDICATION Congestive Heart Failure M-Mode DIMENSIONS IVSd1.7 (0.7-1.1cm)Left Atrium (MM)2.6 (1.6-4.0cm) LVDd5.2 (3.5-5.6cm)Aortic Root4.3 (2.0-3.7cm) PWd1.4 (0.7-1.1cm)Aortic Cusp Exc.2.2 (1.5-2.0cm) IVSs1.9 cm LVDs2.9 (2.5-4.0cm) PWs1.8 cm Technically difficult study due to poor parasternal windows and pts breathing . Normal left ventricular chamber size, systolic function and wall motion to extent visualized. Left ventricular ejection fraction estimated to be 65-70 %. Mild left ventricular hypertrophy by 2-D . No evidence of pericardial effusion All other cardiac chamber sizes are within normal limits . Focal aortic valve sclerosis with adequate cusp excursion. Moderately Thickened mitral valve leaflets with normal excursion. Moderatly Mitral annulus and aortic root calcification. Normal Pulmonic valve structure . Normal tricuspid valve structure. A color flow and spectral Doppler study was performed and revealed: No aortic regurgitation. Trace mitral regurgitation. Mitral diastolic velocities suggest reduced left ventricular relaxation c/w mild LV diastolic dysfunction (Grade I ). Mild tricuspid regurgitation. Tricuspid systolic velocities suggests peak right ventricular systolic pressure of 39mmHg, consistent with mild pulmonary hypertension. No Pulmonic regurgitation present.
--- NOTE | 2018-01-13 09:00 | Progress Note ---
DATE: 01/12/2018 SUBJECTIVE: This is an elderly male, who is currently in the bed, comfortable. Short of breath is improving. OBJECTIVE: VITAL SIGNS: Stable. CHEST: Bilateral crackles. CARDIOVASCULAR: Regular rhythm. No gallop. No murmur. ABDOMEN: Soft. EXTREMITIES: No CCE. NEUROLOGICAL: Generalized weakness. ASSESSMENT: 1. Acute COPD. 2. CHF. 3. Hypertension. PLAN: Continue bronchodilator treatment. Start PT and OT. Continue supportive treatment. Discussed with the patient to . Josef Garcia M.D. DR: Maria L JOB#: [id number] CC:
[2018-01-13] MEDS: Advair 250/50 Inhaler - 14 dose INH SCH ×2 (09:35→19:55)
[2018-01-13] MEDS: Metoprolol Succinate XL 50mg tab ORAL SCH ×2 (09:37→20:50)
[2018-01-13] MEDS: Milk of Magnesia 30ml Ud ORAL SCH ×2 (09:37→18:31)
[2018-01-13] MEDS: guaiFENesin ER 600mg tab ORAL SCH (09:38)
[2018-01-13] MEDS: Losartan 50mg tab ORAL SCH ×2 (09:45→20:50)
--- NOTE | 2018-01-13 11:08 | Diagnostic Imaging Report ---
Indication: Reason For Exam: PAIN Technique: Continuous helical CT scanning of the head was performed without intravenous contrast material. Axial and coronal 5 mm sections were generated. Radiation dose was minimized using automated exposure control Dose: Total Dose Length Product - DLP mGycm. Volume CT Dose Index - CTDIvol(s) mGy. Comparison: Findings: The ventricular system is normal in size and configuration. There is no shift of midline structures. No abnormal extra-axial fluid collections are noted. There is no evidence of intracerebral bleeding. No other abnormal high or low density areas are noted within the brain. The calvarium is intact. Visualized orbits and sinuses are unremarkable. The mastoids are clear Impression: Normal CT scan of the head without contrast material. The CT scanner at [facility] is accredited by the [employer] and the scans are performed using protocols designed to limit radiation exposure to as low as reasonably achievable to attain images of sufficient resolution adequate for diagnostic evaluation.
[2018-01-13 12:00] VITALS: BP 123/77
--- NOTE | 2018-01-13 12:06 | Pulmonology Progress Note ---
Assessment/Plan Assessment/Plan IMPRESSION: 1. Mild CHF. 2. COPD. DISCUSSION: Continue losartan, metoprolol, pain medications, breathing treatments. Hold off of steroids or antibiotics in the absence of fever or signs of infection. I will follow carefully. Will follow as needed Subjective Interval Events: No new reported events Constitutional: Reports: no symptoms HEENT: Repors: no symptoms Respiratory: Reports: no symptoms Cardiovascular: Reports: no symptoms Gastrointestinal/Abdominal: Reports: no symptoms Genitourinary: Reports: no symptoms Allergies: Coded Allergies: NO KNOWN DRUG ALLERGIES (Verified Allergy, Unknown, 09/18/17) Objective Last 24 Hour Vital Signs Date Time Temp Pulse Resp B/P (MAP) Pulse Ox O2 Delivery O2 Flow Rate FiO2 01/13/18 10:46 Nasal Cannula 2.0 28 01/13/18 10:46 Nasal Cannula 2.0 28 01/13/18 09:45 154/89 01/13/18 09:38 62 154/89 01/13/18 09:37 61 154/89 01/13/18 09:35 62 18 98 Nasal Cannula 2.0 28 01/13/18 09:35 62 19 98 Nasal Cannula 2.0 28 01/13/18 08:00 97.9 61 18 154/89 99 Nasal Cannula 2.0 97.9 01/13/18 07:30 51 18 98 Nasal Cannula 2.0 28 01/13/18 07:30 Nasal Cannula 2.0 28 01/13/18 07:28 Nasal Cannula 2.0 28 01/13/18 07:28 99 Nasal Cannula 2.0 28 01/13/18 04:00 Nasal Cannula 2.0 01/13/18 04:00 97.9 62 20 160/88 100 97.9 01/13/18 03:26 61 20 99 Nasal Cannula 2.0 28 01/13/18 03:16 61 20 98 Nasal Cannula 2.0 28 01/13/18 00:00 Nasal Cannula 2.0 01/13/18 00:00 97.2 78 21 159/99 100 97.2 01/12/18 23:37 Nasal Cannula 01/12/18 23:37 Nasal Cannula 01/12/18 21:18 64 151/81 01/12/18 21:18 151/81 01/12/18 20:00 Nasal Cannula 2.0 01/12/18 20:00 98.5 64 20 151/81 100 98.5 01/12/18 19:19 99 Nasal Cannula 2.0 28 01/12/18 19:19 Nasal Cannula 2.0 28 01/12/18 19:18 Nasal Cannula 2.0 28 01/12/18 19:18 Nasal Cannula 2.0 01/12/18 16:00 97.7 68 18 150/92 99 Nasal Cannula 2.0 97.7 01/12/18 15:04 Nasal Cannula 01/12/18 15:04 Nasal Cannula 2.0 28 Intake and Output 01/12/18 01/13/18 19:00 07:00 Intake Total 540 ml Output Total 350 ml 800 ml Balance 190 ml -800 ml Intake Oral 540 ml Output Urine Total 350 ml 800 ml # Voids 4 General Appearance: no acute distress HEENT: normocephalic Respiratory/Chest: chest wall non-tender Cardiovascular: normal peripheral pulses, normal rate Abdomen: normal bowel sounds Extremities: no cyanosis Laboratory Tests 01/12/18 17:00: Urine Color Pale yellow, Urine Appearance Clear, Urine pH 8, Urine Specific [place] 1.015, Urine Protein Negative, Urine Glucose (UA) Negative, Urine Ketones Negative, Urine Occult Blood 1+H, Urine Nitrite Negative, Urine Bilirubin Negative, Urine Urobilinogen Normal, Urine Leukocyte Esterase Negative , Urine RBC 0-2H, Urine WBC 0-2, Urine Squamous Epithelial Cells None, Urine Bacteria None Current Medications Medications (Trade) Dose Ordered Sig/Gilbert Route PRN Reason Start Time Stop Time Status Last Admin Dose Admin Albuterol/ Ipratropium (Albuterol/ Ipratropium) 3 ml Q4H PRN N Shortness of Breath 01/11/18 14:45 01/13/18 14:44 Albuterol/ Ipratropium (Albuterol/ Ipratropium) 3 ml Q4HRT HHN 01/11/18 15:00 01/13/18 22:59 01/13/18 03:16 Amlodipine Besylate (Norvasc) 10 mg DAILY ORAL 01/12/18 09:00 02/08/18 08:59 01/13/18 09:38 Escitalopram Oxalate (Lexapro) 10 mg DAILY ORAL 01/12/18 09:00 02/10/18 08:59 01/13/18 09:37 Guaifenesin (Mucinex ER) 600 mg DAILY ORAL 01/12/18 09:00 02/08/18 08:59 01/13/18 09:38 Hydrochlorothiazide (Hydrodiuril) 25 mg DAILY ORAL 01/13/18 09:00 02/12/18 08:59 01/13/18 09:45 Hydromorphone HCl (Dilaudid) 1 mg Q6H PRN IVP Severe Pain 01/11/18 14:45 01/15/18 14:44 01/13/18 09:39 Ibuprofen (Motrin) 800 mg TID ORAL 01/11/18 18:00 02/07/18 12:59 01/13/18 09:38 Losartan Potassium (Cozaar) 50 mg EVERY 12 HOURS ORAL 01/11/18 21:00 02/07/18 20:59 01/13/18 09:45 Magnesium Hydroxide (Mom) 30 ml BID ORAL 01/11/18 18:00 02/10/18 14:14 01/13/18 09:37 Metoprolol Succinate (Toprol XL) 50 mg Q12HR ORAL 01/12/18 21:00 02/11/18 20:59 01/13/18 09:37 Pantoprazole (Protonix) 40 mg DAILYPRN PRN ORAL HEART BURN 01/12/18 09:00 02/11/18 08:59 01/13/18 09:37 Promethazine HCl/ Codeine (Phenergan with Codeine) 10 ml QIDPRN PRN ORAL For Cough 01/11/18 18:00 02/10/18 17:59 Salmeterol Xinafoate/ Fluticasone (Advair 250/50 Diskus) 1 puffs BID INH 01/11/18 18:00 02/07/18 17:59 01/13/18 09:35 Wilfredo Aguilar MD Jan 13, 2018 12:06
[2018-01-13 16:00] VITALS: BP 146/78
--- NOTE | 2018-01-13 17:08 | Cardiac Electrophysiology PN ---
Assessment/Plan Assessment/Plan 1. Chest pain. Ruled out for myocardial infarction. Refused nuclear stress test. Echo EF 65% EKG shows sinus rhythm with incomplete right bundle-branch block and left axis deviation. No acute ST-T wave abnormalities. 2. Hypertension. On Norvasc 10 mg daily, Losartan 50 mg b.i.d., metoprolol 50 mg b.i.d. and HCTZ 25 added. Add prn Clonidine 3. Chronic obstructive pulmonary disease. On albuterol and Mucinex. DW RN DC plan in progress Subjective Subjective Comfortable in NAD. RN at bedside. Refused discharge Objective Last 24 Hour Vital Signs Date Time Temp Pulse Resp B/P (MAP) Pulse Ox O2 Delivery O2 Flow Rate FiO2 01/13/18 16:04 49 16 98 Nasal Cannula 4.0 36 01/13/18 16:00 97.7 82 18 146/78 99 Nasal Cannula 2.0 97.7 01/13/18 15:53 51 16 99 Nasal Cannula 4.0 36 01/13/18 12:00 98.2 80 18 123/77 99 Nasal Cannula 2.0 98.2 01/13/18 10:46 Nasal Cannula 2.0 28 01/13/18 10:46 Nasal Cannula 2.0 28 01/13/18 09:45 154/89 01/13/18 09:38 62 154/89 01/13/18 09:37 61 154/89 01/13/18 09:35 62 18 98 Nasal Cannula 2.0 28 01/13/18 09:35 62 19 98 Nasal Cannula 2.0 28 01/13/18 08:00 97.9 61 18 154/89 99 Nasal Cannula 2.0 97.9 01/13/18 07:30 51 18 98 Nasal Cannula 2.0 28 01/13/18 07:30 Nasal Cannula 2.0 28 01/13/18 07:28 Nasal Cannula 2.0 28 01/13/18 07:28 99 Nasal Cannula 2.0 28 01/13/18 04:00 Nasal Cannula 2.0 01/13/18 04:00 97.9 62 20 160/88 100 97.9 01/13/18 03:26 61 20 99 Nasal Cannula 2.0 28 01/13/18 03:16 61 20 98 Nasal Cannula 2.0 28 01/13/18 00:00 Nasal Cannula 2.0 01/13/18 00:00 97.2 78 21 159/99 100 97.2 01/12/18 23:37 Nasal Cannula 01/12/18 23:37 Nasal Cannula 01/12/18 21:18 64 151/81 01/12/18 21:18 151/81 01/12/18 20:00 Nasal Cannula 2.0 01/12/18 20:00 98.5 64 20 151/81 100 98.5 01/12/18 19:19 99 Nasal Cannula 2.0 28 01/12/18 19:19 Nasal Cannula 2.0 28 01/12/18 19:18 Nasal Cannula 2.0 28 01/12/18 19:18 Nasal Cannula 2.0 Intake and Output 01/12/18 01/13/18 19:00 07:00 Intake Total 540 ml Output Total 350 ml 800 ml Balance 190 ml -800 ml Intake Oral 540 ml Output Urine Total 350 ml 800 ml # Voids 4 Objective HEAD AND NECK: No JVD. LUNGS: Clear CARDIOVASCULAR: Nl S1 and S2 with no gallop or murmur. ABDOMEN: Soft. EXTREMITIES: No pitting edema. Aron Holguin MD Jan 13, 2018 17:08
[2018-01-13 20:00] VITALS: BP 128/69
--- NOTE | 2018-01-13 22:04 | General Progress Note ---
Assessment/Plan Status: stable, progressing Assessment/Plan MDD Anxiety -lexapro 10mg qam -provided the pt with ro/st Subjective Date patient seen: Jan 13, 2018 Neurologic/Psychiatric: Reports: anxiety, depressed, emotional problems Allergies: Coded Allergies: NO KNOWN DRUG ALLERGIES (Verified Allergy, Unknown, 09/18/17) Objective Last 24 Hour Vital Signs Date Time Temp Pulse Resp B/P (MAP) Pulse Ox O2 Delivery O2 Flow Rate FiO2 01/13/18 20:50 129/69 01/13/18 20:50 129/69 01/13/18 20:00 98.0 56 20 128/69 100 98.0 01/13/18 19:56 52 18 99 Nasal Cannula 2.0 28 01/13/18 19:41 50 16 Nasal Cannula 4.0 36 01/13/18 19:41 50 16 99 Nasal Cannula 4.0 36 01/13/18 19:41 36 01/13/18 19:41 99 Nasal Cannula 4.0 36 01/13/18 19:41 Nasal Cannula 4.0 36 01/13/18 16:04 49 16 98 Nasal Cannula 4.0 36 01/13/18 16:00 97.7 82 18 146/78 99 Nasal Cannula 2.0 97.7 01/13/18 15:53 51 16 99 Nasal Cannula 4.0 36 01/13/18 12:00 98.2 80 18 123/77 99 Nasal Cannula 2.0 98.2 01/13/18 10:46 Nasal Cannula 2.0 28 01/13/18 10:46 Nasal Cannula 2.0 28 01/13/18 09:45 154/89 01/13/18 09:38 62 154/89 01/13/18 09:37 61 154/89 01/13/18 09:35 62 18 98 Nasal Cannula 2.0 28 01/13/18 09:35 62 19 98 Nasal Cannula 2.0 28 01/13/18 08:00 97.9 61 18 154/89 99 Nasal Cannula 2.0 97.9 01/13/18 07:30 51 18 98 Nasal Cannula 2.0 28 01/13/18 07:30 Nasal Cannula 2.0 28 01/13/18 07:28 Nasal Cannula 2.0 28 01/13/18 07:28 99 Nasal Cannula 2.0 28 01/13/18 04:00 Nasal Cannula 2.0 01/13/18 04:00 97.9 62 20 160/88 100 97.9 01/13/18 03:26 61 20 99 Nasal Cannula 2.0 28 01/13/18 03:16 61 20 98 Nasal Cannula 2.0 28 01/13/18 00:00 Nasal Cannula 2.0 01/13/18 00:00 97.2 78 21 159/99 100 97.2 01/12/18 23:37 Nasal Cannula 01/12/18 23:37 Nasal Cannula Intake and Output 01/12/18 01/13/18 19:00 07:00 Intake Total 540 ml Output Total 350 ml 800 ml Balance 190 ml -800 ml Intake Oral 540 ml Output Urine Total 350 ml 800 ml # Voids 4 Height (Feet): 6 Height (Inches): 2.00 Weight (Pounds): 225 General Appearance: no apparent distress, alert Neurologic: alert, oriented x 3, responsive, depressed affect Rosanne Marroquin M.D. Jan 13, 2018 22:04
--- NOTE | 2018-01-13 22:05 | Psych Consult Progress Note ---
Psych Consult Progress Note Consult 01/12/18 MDD Anxiety -lexapro 10mg qam -provided the pt with ro/st Vital Signs Last 24 Hour Vital Signs Date Time Temp Pulse Resp B/P (MAP) Pulse Ox O2 Delivery O2 Flow Rate FiO2 01/13/18 20:50 129/69 01/13/18 20:50 129/69 01/13/18 20:00 98.0 56 20 128/69 100 98.0 01/13/18 19:56 52 18 99 Nasal Cannula 2.0 28 01/13/18 19:41 50 16 Nasal Cannula 4.0 36 01/13/18 19:41 50 16 99 Nasal Cannula 4.0 36 01/13/18 19:41 36 01/13/18 19:41 99 Nasal Cannula 4.0 36 01/13/18 19:41 Nasal Cannula 4.0 36 01/13/18 16:04 49 16 98 Nasal Cannula 4.0 36 01/13/18 16:00 97.7 82 18 146/78 99 Nasal Cannula 2.0 97.7 01/13/18 15:53 51 16 99 Nasal Cannula 4.0 36 01/13/18 12:00 98.2 80 18 123/77 99 Nasal Cannula 2.0 98.2 01/13/18 10:46 Nasal Cannula 2.0 28 01/13/18 10:46 Nasal Cannula 2.0 28 01/13/18 09:45 154/89 01/13/18 09:38 62 154/89 01/13/18 09:37 61 154/89 01/13/18 09:35 62 18 98 Nasal Cannula 2.0 28 01/13/18 09:35 62 19 98 Nasal Cannula 2.0 28 01/13/18 08:00 97.9 61 18 154/89 99 Nasal Cannula 2.0 97.9 01/13/18 07:30 51 18 98 Nasal Cannula 2.0 28 01/13/18 07:30 Nasal Cannula 2.0 28 01/13/18 07:28 Nasal Cannula 2.0 28 01/13/18 07:28 99 Nasal Cannula 2.0 28 01/13/18 04:00 Nasal Cannula 2.0 01/13/18 04:00 97.9 62 20 160/88 100 97.9 01/13/18 03:26 61 20 99 Nasal Cannula 2.0 28 01/13/18 03:16 61 20 98 Nasal Cannula 2.0 28 01/13/18 00:00 Nasal Cannula 2.0 01/13/18 00:00 97.2 78 21 159/99 100 97.2 01/12/18 23:37 Nasal Cannula 01/12/18 23:37 Nasal Cannula Medications Current Medications Medications (Trade) Dose Ordered Sig/Gilbert Route PRN Reason Start Time Stop Time Status Last Admin Dose Admin Albuterol/ Ipratropium (Albuterol/ Ipratropium) 3 ml Q4HRT HHN 01/11/18 15:00 01/13/18 22:59 01/13/18 19:43 Amlodipine Besylate (Norvasc) 10 mg DAILY ORAL 01/12/18 09:00 02/08/18 08:59 01/13/18 09:38 Clonidine HCl (Catapres Tab) 0.1 mg Q2HR PRN ORAL For High Blood Pressure 01/13/18 16:45 02/12/18 16:44 Escitalopram Oxalate (Lexapro) 10 mg DAILY ORAL 01/12/18 09:00 02/10/18 08:59 01/13/18 09:37 Guaifenesin (Mucinex ER) 600 mg DAILY ORAL 01/12/18 09:00 02/08/18 08:59 01/13/18 09:38 Hydrochlorothiazide (Hydrodiuril) 25 mg DAILY ORAL 01/13/18 09:00 02/12/18 08:59 01/13/18 09:45 Hydromorphone HCl (Dilaudid) 1 mg Q6H PRN IVP Severe Pain 01/11/18 14:45 01/15/18 14:44 01/13/18 15:28 Ibuprofen (Motrin) 800 mg TID ORAL 01/11/18 18:00 02/07/18 12:59 01/13/18 18:30 Losartan Potassium (Cozaar) 50 mg EVERY 12 HOURS ORAL 01/11/18 21:00 02/07/18 20:59 01/13/18 20:50 Magnesium Hydroxide (Mom) 30 ml BID ORAL 01/11/18 18:00 02/10/18 14:14 01/13/18 18:31 Metoprolol Succinate (Toprol XL) 50 mg Q12HR ORAL 01/12/18 21:00 02/11/18 20:59 01/13/18 20:50 Pantoprazole (Protonix) 40 mg DAILYPRN PRN ORAL HEART BURN 01/12/18 09:00 02/11/18 08:59 01/13/18 09:37 Promethazine HCl/ Codeine (Phenergan with Codeine) 10 ml QIDPRN PRN ORAL For Cough 01/11/18 18:00 02/10/18 17:59 Salmeterol Xinafoate/ Fluticasone (Advair 250/50 Diskus) 1 puffs BID INH 01/11/18 18:00 02/07/18 17:59 01/13/18 19:55 Rosanne Marroquin M.D. Jan 13, 2018 22:05
[2018-01-14] VITALS: BP 153/77
[2018-01-14 04:00] VITALS: BP 137/73
--- NOTE | 2018-01-14 06:16 | Progress Note ---
DATE: 01/13/2018 SUBJECTIVE: This is a 77-year-old male, has been admitted for pneumonia, COPD, and CHF. The patient is not feeling well. Earlier, his blood pressure was high at 170/90. The patient is still having cough with sputum production, although his oxygen saturation is above 98% on two liters oxygen. The patient is concerned to going home because of hypoxia and cough. He has no fever. No chills. PHYSICAL EXAMINATION: VITAL SIGNS: His current blood pressure is 148/90, pulse about 100, and respirations 18. No fever. Saturation 98%. SKIN: Good skin turgor. CHEST: Bilaterally few crackles and wheezing, but improving. CARDIOVASCULAR: Regular rhythm. No gallop. No murmur. ABDOMEN: Soft. EXTREMITIES: CCE. NEUROLOGIC: No focal deficit. ASSESSMENT: 1. Acute chronic obstructive pulmonary disease. 2. Hypertension. 3. Possible pneumonia. 4. , accelerated. PLAN: We will continue bronchodilator treatment. Continue oxygen. Continue steroid. Discussed with the patient. The patient wants to go to the residential for short-term. Discussed with the patient. We will try to send him to [facility]. Discussed with Dr. Arreaga and continue bronchodilator treatment. Monitor blood pressure. Josef Garcia M.D. DR: ANAY JOB#: [id number] CC:
[2018-01-14] MEDS: Advair 250/50 Inhaler - 14 dose INH SCH ×2 (07:34→18:00)
[2018-01-14 08:00] VITALS: BP 146/85
[2018-01-14] MEDS: Metoprolol Succinate XL 50mg tab ORAL SCH (08:42)
[2018-01-14] MEDS: guaiFENesin ER 600mg tab ORAL SCH (08:42)
[2018-01-14] MEDS: Losartan 50mg tab ORAL SCH (08:42)
[2018-01-14] MEDS: Milk of Magnesia 30ml Ud ORAL SCH ×2 (08:54→18:00)
--- NOTE | 2018-01-14 08:54 | Pulmonology Progress Note ---
Assessment/Plan Assessment/Plan IMPRESSION: 1. Mild CHF. 2. COPD. DISCUSSION: Continue losartan, metoprolol, pain medications, breathing treatments. No steroids or antibiotics in the absence of fever or signs of infection. I will follow carefully. Will follow as needed Subjective Interval Events: None Constitutional: Reports: no symptoms HEENT: Repors: no symptoms Respiratory: Reports: no symptoms Cardiovascular: Reports: no symptoms Gastrointestinal/Abdominal: Reports: no symptoms Genitourinary: Reports: no symptoms Neurologic: Reports: no symptoms Allergies: Coded Allergies: NO KNOWN DRUG ALLERGIES (Verified Allergy, Unknown, 09/18/17) Objective Last 24 Hour Vital Signs Date Time Temp Pulse Resp B/P (MAP) Pulse Ox O2 Delivery O2 Flow Rate FiO2 01/14/18 08:42 59 146/85 01/14/18 08:42 146/85 01/14/18 08:40 59 146/85 01/14/18 04:00 98.2 58 20 137/73 100 98.2 01/14/18 02:56 98.0 01/14/18 00:00 97.8 57 18 153/77 100 97.8 01/13/18 20:50 129/69 01/13/18 20:50 129/69 01/13/18 20:00 98.0 56 20 128/69 100 98.0 01/13/18 19:56 52 18 99 Nasal Cannula 2.0 28 01/13/18 19:41 50 16 Nasal Cannula 4.0 36 01/13/18 19:41 50 16 99 Nasal Cannula 4.0 36 01/13/18 19:41 36 01/13/18 19:41 99 Nasal Cannula 4.0 36 01/13/18 19:41 Nasal Cannula 4.0 36 01/13/18 16:04 49 16 98 Nasal Cannula 4.0 36 01/13/18 16:00 97.7 82 18 146/78 99 Nasal Cannula 2.0 97.7 01/13/18 15:53 51 16 99 Nasal Cannula 4.0 36 01/13/18 12:00 98.2 80 18 123/77 99 Nasal Cannula 2.0 98.2 01/13/18 10:46 Nasal Cannula 2.0 28 01/13/18 10:46 Nasal Cannula 2.0 28 01/13/18 09:45 154/89 3/26/18 09:38 62 154/89 01/13/18 09:37 61 154/89 01/13/18 09:35 62 18 98 Nasal Cannula 2.0 28 01/13/18 09:35 62 19 98 Nasal Cannula 2.0 28 Intake and Output 01/13/18 01/14/18 19:00 07:00 Intake Total 600 ml Output Total 1300 ml Balance 600 ml -1300 ml Intake Oral 600 ml Output Urine Total 1300 ml # Voids 4 General Appearance: no acute distress HEENT: normocephalic Respiratory/Chest: chest wall non-tender, lungs clear Cardiovascular: normal peripheral pulses, normal rate Abdomen: normal bowel sounds Current Medications Medications (Trade) Dose Ordered Sig/Gilbert Route PRN Reason Start Time Stop Time Status Last Admin Dose Admin Amlodipine Besylate (Norvasc) 10 mg DAILY ORAL 01/12/18 09:00 02/08/18 08:59 01/14/18 08:40 Clonidine HCl (Catapres Tab) 0.1 mg Q2HR PRN ORAL For High Blood Pressure 01/13/18 16:45 02/12/18 16:44 Escitalopram Oxalate (Lexapro) 10 mg DAILY ORAL 01/12/18 09:00 02/10/18 08:59 01/14/18 08:41 Guaifenesin (Mucinex ER) 600 mg DAILY ORAL 01/12/18 09:00 02/08/18 08:59 01/14/18 08:42 Hydrochlorothiazide (Hydrodiuril) 25 mg DAILY ORAL 01/13/18 09:00 02/12/18 08:59 01/14/18 08:42 Hydromorphone HCl (Dilaudid) 1 mg Q6H PRN IVP Severe Pain 01/11/18 14:45 01/15/18 14:44 01/14/18 02:26 Ibuprofen (Motrin) 800 mg TID ORAL 01/11/18 18:00 02/07/18 12:59 01/14/18 08:41 Losartan Potassium (Cozaar) 50 mg EVERY 12 HOURS ORAL 01/11/18 21:00 02/07/18 20:59 01/14/18 08:42 Magnesium Hydroxide (Mom) 30 ml BID ORAL 01/11/18 18:00 02/10/18 14:14 01/13/18 18:31 Metoprolol Succinate (Toprol XL) 50 mg Q12HR ORAL 01/12/18 21:00 02/11/18 20:59 01/14/18 08:42 Pantoprazole (Protonix) 40 mg DAILYPRN PRN ORAL HEART BURN 01/12/18 09:00 02/11/18 08:59 01/13/18 09:37 Promethazine HCl/ Codeine (Phenergan with Codeine) 10 ml QIDPRN PRN ORAL For Cough 01/11/18 18:00 02/10/18 17:59 Salmeterol Xinafoate/ Fluticasone (Advair 250/50 Diskus) 1 puffs BID INH 01/11/18 18:00 02/07/18 17:59 01/14/18 07:34 Wilfredo Aguilar MD Jan 14, 2018 08:54
[2018-01-14 12:00] VITALS: BP 136/80
--- NOTE | 2018-01-14 12:48 | General Progress Note ---
Assessment/Plan Status: stable, progressing Assessment/Plan MDD Anxiety -lexapro 10mg qam -provided the pt with ro/st Subjective Date patient seen: Jan 14, 2018 Neurologic/Psychiatric: Reports: anxiety, depressed, emotional problems Allergies: Coded Allergies: NO KNOWN DRUG ALLERGIES (Verified Allergy, Unknown, 09/18/17) Subjective the pt is anxious about being discharged Objective Last 24 Hour Vital Signs Date Time Temp Pulse Resp B/P (MAP) Pulse Ox O2 Delivery O2 Flow Rate FiO2 01/14/18 09:38 50 16 99 Nasal Cannula 2.0 28 01/14/18 09:36 99 Nasal Cannula 2.0 28 01/14/18 08:42 59 146/85 01/14/18 08:42 146/85 01/14/18 08:40 59 146/85 01/14/18 08:00 98.6 59 19 146/85 100 98.6 01/14/18 07:50 Nasal Cannula 2.0 28 01/14/18 07:36 50 16 99 Nasal Cannula 2.0 28 01/14/18 04:00 98.2 58 20 137/73 100 98.2 01/14/18 02:56 98.0 01/14/18 00:00 97.8 57 18 153/77 100 97.8 01/13/18 20:50 129/69 01/13/18 20:50 129/69 01/13/18 20:00 98.0 56 20 128/69 100 98.0 01/13/18 19:56 52 18 99 Nasal Cannula 2.0 28 01/13/18 19:41 50 16 Nasal Cannula 4.0 36 01/13/18 19:41 50 16 99 Nasal Cannula 4.0 36 01/13/18 19:41 36 01/13/18 19:41 99 Nasal Cannula 4.0 36 01/13/18 19:41 Nasal Cannula 4.0 36 01/13/18 16:04 49 16 98 Nasal Cannula 4.0 36 01/13/18 16:00 97.7 82 18 146/78 99 Nasal Cannula 2.0 97.7 01/13/18 15:53 51 16 99 Nasal Cannula 4.0 36 Intake and Output 01/13/18 01/14/18 19:00 07:00 Intake Total 600 ml Output Total 1300 ml Balance 600 ml -1300 ml Intake Oral 600 ml Output Urine Total 1300 ml # Voids 4 Height (Feet): 6 Height (Inches): 2.00 Weight (Pounds): 225 General Appearance: no apparent distress, alert Neurologic: oriented x 3, responsive, depressed affect Rosanne Marroquin M.D. Jan 14, 2018 12:48
[2018-01-14 15:50] VITALS: BP 116/70
--- NOTE | 2018-01-14 16:58 | Cardiac Electrophysiology PN ---
Assessment/Plan Assessment/Plan 1. Chest pain. Ruled out for myocardial infarction. Refused nuclear stress test. Echo EF 65% EKG shows sinus rhythm with incomplete right bundle-branch block and left axis deviation. No acute ST-T wave abnormalities. 2. Hypertension. On Norvasc 10 mg daily, Losartan 50 mg b.i.d., Metoprolol 50 mg b.i.d. and HCTZ 25 and prn Clonidine 3. Chronic obstructive pulmonary disease. On albuterol and Mucinex. NOVA RN DC plan in progress Subjective Subjective Comfortable in NAD. RN at bedside. DC planning in progress Objective Last 24 Hour Vital Signs Date Time Temp Pulse Resp B/P (MAP) Pulse Ox O2 Delivery O2 Flow Rate FiO2 01/14/18 15:50 97.7 58 22 116/70 97 Nasal Cannula 2.0 97.7 01/14/18 12:00 97.7 60 18 136/80 100 97.7 01/14/18 09:38 50 16 99 Nasal Cannula 2.0 28 01/14/18 09:36 99 Nasal Cannula 2.0 28 01/14/18 08:42 59 146/85 01/14/18 08:42 146/85 01/14/18 08:40 59 146/85 01/14/18 08:00 98.6 59 19 146/85 100 98.6 01/14/18 07:50 Nasal Cannula 2.0 28 01/14/18 07:36 50 16 99 Nasal Cannula 2.0 28 01/14/18 04:00 98.2 58 20 137/73 100 98.2 01/14/18 02:56 98.0 01/14/18 00:00 97.8 57 18 153/77 100 97.8 01/13/18 20:50 129/69 01/13/18 20:50 129/69 01/13/18 20:00 98.0 56 20 128/69 100 98.0 01/13/18 19:56 52 18 99 Nasal Cannula 2.0 28 01/13/18 19:41 50 16 Nasal Cannula 4.0 36 01/13/18 19:41 50 16 99 Nasal Cannula 4.0 36 01/13/18 19:41 36 01/13/18 19:41 99 Nasal Cannula 4.0 36 01/13/18 19:41 Nasal Cannula 4.0 36 Intake and Output 01/13/18 01/14/18 19:00 07:00 Intake Total 600 ml Output Total 1300 ml Balance 600 ml -1300 ml Intake Oral 600 ml Output Urine Total 1300 ml # Voids 4 Objective HEAD AND NECK: No JVD. LUNGS: Clear CARDIOVASCULAR: Nl S1 and S2 with no gallop or murmur. ABDOMEN: Soft. EXTREMITIES: No pitting edema. Aron Holguin MD Jan 14, 2018 16:58
[2018-01-14] MEDS ORDERED: HYDROCHLOROTHIA25 MG ORAL (17:47)
--- NOTE | 2018-01-16 12:20 | Discharge Summary ---
Discharge Summary Discharge Summary Discharge Summary DATE OF ADMISSION: 01/08/2018 DATE OF DISCHARGE: 01/14/2018 CONSULTANTS: 1. Dr. Aron Holguin 2. Dr. Rosanne Marroquin 3. Dr. Wilfredo Aguilar 4. Dr. Josef Garcia BRIEF HOSPITAL COURSE: Patient is a 77-year-old male with history of COPD presented to ED complaining of chest pain. Symptoms started approximately 4-5 prior to admission, pain was described to be located on the left side, described to be pressure-like, 8 out of 10, radiating to the left shoulder. He was given nitroglycerin x 2 and aspirin in the field chest pain improved. He also complained of shortness of breath. He denied fever, or chills or cough, he denied sick contacts or recent travel. He has medical history significant for asthma and COPD. On evaluation at bloodwork showed no leukocytoses, WBC 5.8, hemoglobin 12.4, hematocrit 36.3. Troponin was negative. He had an EKG done that showed normal sinus rhythm, with no acute ischemic changes. Chest x-ray done showed no acute process. He was admitted to telemetry for evaluation of chest pain and possible acute coronary syndrome. He underwent cardiac evaluation with Dr. Aron Holguin. EKG showed normal sinus rhythm with incomplete right bundle branch block and left axis deviation, no acute ST-T wave abnormalities noted. He was continued on Norvasc 10 mg daily and losartan 50 mg twice a day. He was continued on metoprolol 50 mg twice a day. Patient has COPD and was given albuterol and Mucinex. Echocardiogram done showed ejection fraction of 65-70% with mild left ventricular hypertrophy, no aortic regurgitation trace mitral regurgitation and PA pressure of 39. He was recommended stress test however patient refused. He was depressed and was anxious, patient had cognitive impairment. He underwent psychiatric evaluation with Dr. Rosanne Marroquin. He was eventually started on Lexapro 10 mg every morning. No steroids or antibiotic was given should absence of fever and signs of infection. Troponin has been negative. Patient was then cleared for discharge. FINAL DIAGNOSES: 1. Atypical chest pain. 2. Acute COPD. 3. Hypertension 4. Anxiety. 5. Major depressive disorder. DISPOSITION: Patient was discharged to [facility]. DISCHARGE MEDICATIONS: Refer to Discharge Medication List. I have been assigned to dictate discharge summary on this account, and I was not involved in the patient's management. Yesenia Davis NP Jan 16, 2018 12:20
== END 2018-01-14 18:06 | DRG 311 ==
LOC: EDBD 03:00 → EMR 03:14 → 2E 03:58 → EDBEDREQ 05:38 → 4E 01-11 14:22
DX: I24.9 Acute ischemic heart disease, unspecified (principal); I50.9 Heart failure, unspecified; I11.0 Hypertensive heart disease with heart failure; E86.0 Dehydration; J44.1 Chronic obstructive pulmonary disease with (acute) exacerbation; R07.89 Other chest pain; D63.8 Anemia in other chronic diseases classified elsewhere; F32.9 Major depressive disorder, single episode, unspecified; I45.10 Unspecified right bundle-branch block; F41.9 Anxiety disorder, unspecified; Z85.46 Personal history of malignant neoplasm of prostate; M19.90 Unspecified osteoarthritis, unspecified site
CPT/HCPCS: 36415; 70450; 71045; 80053; 81001; 82550; 82553; 83605; 83880; 84484; 85025; 87040; 93005; 93306; 94640; 94664; 94760; 99285; J7620